=== PATIENT | female | born 1985 | race Caucasian/White ===

== ENCOUNTER → 2016-10-16 | Outpatient (CLI) | payer OTHER ==
[2016-10-16 10:40] LABS: Bilirubin, Delta 0.3 mg/dL (0.0-0.2); Total Bilirubin 0.4 mg/dL (0.2-1.3); Total Protein 8.1 g/dL (6.3-8.2)
[2016-10-16 12:38] LABS: Hemoglobin A1C 5.7 % (4.2-6.1)
== END | disposition home or self-care (01) ==
LOC: LABWHC1 08:11
PROVIDERS: ATTEND Psychiatry & Neurology Psychiatry
DX: Z51.81 Encounter for therapeutic drug level monitoring (principal); Z79.899 Other long term (current) drug therapy
CPT/HCPCS: 36415; 80061; 80076; 80164; 82947; 83036; 84439; 84443

== ENCOUNTER 2016-11-22 17:47 | Emergency (ER) | payer OTHER ==
[2016-11-22] MEDS ORDERED: ACTIVATED CHARCOAL 50 GM/240 ML BOTTLE PO STA (18:52)
--- NOTE | 2016-11-22 18:59 | ED ---
General Adult HPI - General Source: patient, EMS, RN notes reviewed, old records reviewed Mode of arrival: EMS Limitations: no limitations <Cas Allison - Last Filed: 11/22/16 21:54> <Jacobo Cardozo - Last Filed: 11/23/16 05:33> - General Chief complaint: Overdose Stated complaint: Sucidial Time Seen by Provider: 11/22/16 18:18 - History of Present Illness Initial comments: Chief complaint and history of present illness a 30-year-old female comes emergency room because of depression. She states she took approximately 2800 mg tablets of ibuprofen because she wasn't happy with herself or her life. She does admit she did order to hurt herself. She reports that she's history of alcoholism and bipolar disorder. Currently being seen by psychiatrist. (Cas Allison) - Related Data Home Medications Medication Instructions Recorded Confirmed Amoxicillin 875 mg PO Q12H 11/22/16 11/22/16 Mirtazapine [Remeron] 15 - 30 mg PO HS 11/22/16 11/22/16 Allergies Allergy/AdvReac Type Severity Reaction Status Date / Time No Known Allergies Allergy Verified 11/22/16 19:25 Review of Systems ROS Other: All systems not noted in ROS Statement are negative. <Cas Allison - Last Filed: 11/22/16 21:54> ROS Other: All systems not noted in ROS Statement are negative. <Jacobo Cardozo - Last Filed: 11/23/16 05:33> ROS Statement: Those systems with pertinent positive or pertinent negative responses have been documented in the HPI. Review of systems not complaining of any headache or visual acuity changes no chest pain shows breath GI/ problems. Patient reports that she is depressed and the overdose of ibuprofen to harm herself. The medications were available to her because she had a tooth pulled last month. All systems are reviewed. Past medical problems significant for bipolar disorder, skin cancer, alcoholism and insomnia. She reports she overdosed on heroin once January of last year on purpose. Surgeries uterine ablation, rhinoplasty. Denies any chest pain . Family history no alcohol except family did not admitted according to the patient. Denies ALLERGIES denies smoking states she drinks beer and whiskey. She started drinking when she was 12 years old she been through rehab 4 times last time last summer. (Cas Allison) Past Medical History Past Medical History: Cancer Additional Past Medical History / Comment(s): alcoholism, insomnia, past cervical cancer History of Any Multi-Drug Resistant Organisms: None Reported Past Surgical History: Uterine Ablation Additional Past Surgical History / Comment(s): rhinoplasty, cervical cancer currently and skin cancer lymph node removed in the 6th grade Past Anesthesia/Blood Transfusion Reactions: No Reported Reaction Past Psychological History: Anxiety, Depression Additional Psychological History / Comment(s): PT STATED CURRENTLY HAS NO THOUGHTS OF HARMING SELF BUT IN PAST 2 WEEKS HAD SOME THOUGHTS. DENIES FEELING HOPELESS. Smoking Status: Never smoker Past Alcohol Use History: Occasional Additional Past Alcohol Use History / Comment(s): went to [place] for alcohol has been sober for 50 days Past Drug Use History: None Reported Additional Drug Use History / Comment(s): Patient states that she tried herion for the first time on 01/08/16, unsure of amount and went unresponsive where she required CPR to bring her back to life per Patient. - Past Family History Father Additional Family Medical History / Comment(s): Father is age 57. Alcoholism, diverticulosis Mother Additional Family Medical History / Comment(s): Mother is alive at age 65 with no major medical problems. Brother(s) Additional Family Medical History / Comment(s): Patient has 2 brothers with no major medical problems. She does not have any sisters. She does not have any children. <Cas Allison - Last Filed: 11/22/16 21:54> General Exam Limitations: no limitations <Cas Allison - Last Filed: 11/22/16 21:54> <Jacobo Cardozo - Last Filed: 11/23/16 05:33> - General Exam Comments Initial Comments: General: The patient is awake and alert, appears slightly fatigued or tired. She answers questions quickly and appropriately. States she did purposely take approximately 20 , 800 mg tablets of ibuprofen. Vital signs show temperature 98.2 pulse 108 respiratory rate 18 pulse ox 98% room air blood pressure 111/63. Eye: Pupils are equal, round and reactive to light, extra-ocular movements are intact ; there is normal conjunctiva bilaterally. No signs of icterus. Ears, nose, mouth and throat: There are moist mucous membranes and no oral lesions. Neck: The neck is supple, there is no tenderness or JVD. Cardiovascular: There is a regular rate and rhythm. No murmur, rub or gallop is appreciated. Respiratory: Lungs are clear to auscultation, respirations are non-labored, breath sounds are equal. No wheezes, stridor, rales, or rhonchi. Gastrointestinal: Soft, non-distended, non-tender abdomen without masses or organomegaly noted. There is no rebound or guarding present. No CVA tenderness. Bowel sounds are unremarkable. Back: There is no tenderness to palpation in the midline. There is no obvious deformity. No rashes noted. Musculoskeletal: Normal ROM, no tenderness, There is no pedal edema. There is no calf tenderness or swelling. Sensation intact. Pulses equal bilaterally 2+. Neurological: CN II-XII intact, There are no obvious motor or sensory deficits. Coordination appears grossly intact. Speech is normal. Skin: Skin is warm and dry and no rashes or lesions are noted. Psychiatric: Cooperative, appears fatigued, depressed, suicidal. (Cas Allison) Course <Cas Allison - Last Filed: 11/22/16 21:54> <Jacobo Cardozo - Last Filed: 11/23/16 05:33> Vital Signs 11/22/16 11/22/16 17:48 19:33 Temperature 98.2 F 98.3 F Pulse Rate 108 H 118 H Respiratory 18 18 Rate Blood Pressure 111/63 104/61 O2 Sat by Pulse 98 97 Oximetry - Reevaluation(s) Reevaluation #1: 11/23/16 05:31 The patient was determined to be sober. She was evaluated by psychiatric department. He is not suicidal or homicidal. She will be discharged with family. (Jacobo Cardozo) EKG Findings - EKG Comments: EKG Findings:: EKG was done reviewed and 1917 hrs. showing sinus tachycardia rate 110. No acute service no ectopy no ischemic changes. MD interval 118 QRS 66 QTc [address] QTc 4:30. Dr[address] Allison <Cas Allison - Last Filed: 11/22/16 21:54> Medical Decision Making - Lab Data Result diagrams: 11/22/16 19:10 11/22/16 19:10 <Cas Allison - Last Filed: 11/22/16 21:54> - Lab Data Result diagrams: 11/22/16 19:10 11/22/16 19:10 <Jacobo Cardozo - Last Filed: 11/23/16 05:33> - Medical Decision Making Poison control was called. Patient's history was reviewed with them. At this time the patient's labs show white count 7.9 hemoglobin 12 medical 37, S and 4.4 BUN 17 creatinine 0.77 and GFR greater than 60. Urine test negative. Urine clean no signs of infection no signs of any illegal drugs. EtOH is 0.272. Patient's Tylenol and aspirin levels are negative. Mother is here at bedside. Patient will be talking to the psych nurse when her alcohol level comes below 0.08. (Cas Allison) - Lab Data Lab Results 11/22/16 11/22/16 11/22/16 Range/Units 17:51 17:51 19:10 WBC (3.8-10.6) k/uL RBC (3.80-5.40) m/uL Hgb (11.4-16.0) gm/dL Hct (34.0-46.0) % MCV (80.0-100.0) fL MCH (25.0-35.0) pg MCHC (31.0-37.0) g/dL RDW (11.5-15.5) % Plt Count (150-450) k/uL Neutrophils % % Lymphocytes % % Monocytes % % Eosinophils % % Basophils % % Neutrophils # (1.3-7.7) k/uL Lymphocytes # (1.0-4.8) k/uL Monocytes # (0-1.0) k/uL Eosinophils # (0-0.7) k/uL Basophils # (0-0.2) k/uL Anisocytosis Sodium 147 H (137-145) mmol/L Potassium 4.4 (3.5-5.1) mmol/L Chloride 111 H (98-107) mmol/L Carbon Dioxide 19 L (22-30) mmol/L Anion Gap 17 mmol/L BUN 7 (7-17) mg/dL Creatinine 0.77 (0.52-1.04) mg/dL Est GFR (MDRD) Af Amer >60 (>60 ml/min/1.73 sqM) Est GFR (MDRD) Non-Af >60 (>60 ml/min/1.73 sqM) Glucose 89 (74-99) mg/dL Calcium 8.9 (8.4-10.2) mg/dL Total Bilirubin 0.3 (0.2-1.3) mg/dL AST 22 (14-36) U/L ALT 26 (9-52) U/L Alkaline Phosphatase 58 (38-126) U/L Total Protein 7.8 (6.3-8.2) g/dL Albumin 3.7 (3.5-5.0) g/dL Urine HCG, Qual Not Detected (Not Detectd) Salicylates <1.0 mg/dL Urine Opiates Screen Not Detected (NotDetected) Ur Oxycodone Screen Not Detected (NotDetected) Urine Methadone Screen Not Detected (NotDetected) Ur Propoxyphene Screen Not Detected (NotDetected) Acetaminophen <10.0 ug/mL Ur Barbiturates Screen Not Detected (NotDetected) U Tricyclic Antidepress Not Detected (NotDetected) Ur Phencyclidine Scrn Not Detected (NotDetected) Ur Amphetamines Screen Not Detected (NotDetected) U Methamphetamines Scrn Not Detected (NotDetected) U Benzodiazepines Scrn Not Detected (NotDetected) Urine Cocaine Screen Not Detected (NotDetected) U Marijuana (THC) Screen Not Detected (NotDetected) Serum Alcohol 272 mg/dL 11/22/16 Range/Units 19:10 WBC 7.9 (3.8-10.6) k/uL RBC 4.25 (3.80-5.40) m/uL Hgb 12.3 (11.4-16.0) gm/dL Hct 37.5 (34.0-46.0) % MCV 88.3 (80.0-100.0) fL MCH 28.8 (25.0-35.0) pg MCHC 32.7 (31.0-37.0) g/dL RDW 16.5 H (11.5-15.5) % Plt Count 385 (150-450) k/uL Neutrophils % 39 % Lymphocytes % 50 % Monocytes % 4 % Eosinophils % 3 % Basophils % 1 % Neutrophils # 3.1 (1.3-7.7) k/uL Lymphocytes # 3.9 (1.0-4.8) k/uL Monocytes # 0.3 (0-1.0) k/uL Eosinophils # 0.3 (0-0.7) k/uL Basophils # 0.1 (0-0.2) k/uL Anisocytosis Slight Sodium (137-145) mmol/L Potassium (3.5-5.1) mmol/L Chloride (98-107) mmol/L Carbon Dioxide (22-30) mmol/L Anion Gap mmol/L BUN (7-17) mg/dL Creatinine (0.52-1.04) mg/dL Est GFR (MDRD) Af Amer (>60 ml/min/1.73 sqM) Est GFR (MDRD) Non-Af (>60 ml/min/1.73 sqM) Glucose (74-99) mg/dL Calcium (8.4-10.2) mg/dL Total Bilirubin (0.2-1.3) mg/dL AST (14-36) U/L ALT (9-52) U/L Alkaline Phosphatase (38-126) U/L Total Protein (6.3-8.2) g/dL Albumin (3.5-5.0) g/dL Urine HCG, Qual (Not Detectd) Salicylates mg/dL Urine Opiates Screen (NotDetected) Ur Oxycodone Screen (NotDetected) Urine Methadone Screen (NotDetected) Ur Propoxyphene Screen (NotDetected) Acetaminophen ug/mL Ur Barbiturates Screen (NotDetected) U Tricyclic Antidepress (NotDetected) Ur Phencyclidine Scrn (NotDetected) Ur Amphetamines Screen (NotDetected) U Methamphetamines Scrn (NotDetected) U Benzodiazepines Scrn (NotDetected) Urine Cocaine Screen (NotDetected) U Marijuana (THC) Screen (NotDetected) Serum Alcohol mg/dL Disposition <Cas Allison - Last Filed: 11/22/16 21:54> <Jacobo Cardozo - Last Filed: 11/23/16 05:33> Clinical Impression: Adjustment disorder, Alcoholic intoxication Disposition: HOME SELF-CARE Condition: Good Instructions: Mood Disorders (ED), Stress (ED), Alcohol Intoxication (ED)
[2016-11-22 19:22] LABS: Anisocytosis Slight; Basophils # (A) 0.1 k/uL (0-0.2); Basophils % (A) 1 %; CHCM 33.1; Eosinophils # (A) 0.3 k/uL (0-0.7); Eosinophils % (A) 3 %; HCT 37.5 % (34.0-46.0); HDW 2.33; HGB 12.3 gm/dL (11.4-16.0); Luc % (Auto) 4; Lymphocytes # (A) 3.9 k/uL (1.0-4.8); Lymphocytes % (A) 50 %; MCH 28.8 pg (25.0-35.0); MCHC 32.7 g/dL (31.0-37.0); MCV 88.3 fL (80.0-100.0); Mean Platelet Volume 6.7; Monocytes # (A) 0.3 k/uL (0-1.0); Monocytes % (A) 4 %; Neutrophils # (A) 3.1 k/uL (1.3-7.7); Neutrophils % (A) 39 %; RBC 4.25 m/uL (3.80-5.40); RDW 16.5 % (11.5-15.5); WBC 7.9 k/uL (3.8-10.6); WBC (Perox) 7.73
[2016-11-22 19:34] VITALS: TEMP 98.3
[2016-11-22 19:34] LABS: ALT 26 U/L (9-52); AST 22 U/L (14-36); Acetaminophen <10.0 ug/mL; Alkaline Phosphatase 58 U/L (38-126); Anion Gap 17 mmol/L; Blood Urea Nitrogen 7 mg/dL (7-17); Calcium 8.9 mg/dL (8.4-10.2); Carbon Dioxide 19 mmol/L (22-30); Chloride 111 mmol/L (98-107); Glucose 89 mg/dL (74-99); Non-African American GFR(MDRD) >60 (>60 ml/min/1.73 sqM); Potassium 4.4 mmol/L (3.5-5.1); Salicylate <1.0 mg/dL; Sodium 147 mmol/L (137-145); Total Bilirubin 0.3 mg/dL (0.2-1.3); Total Protein 7.8 g/dL (6.3-8.2)
[2016-11-22 19:36] LABS: Alcohol 272 mg/dL
[2016-11-22] MEDS ORDERED: SODIUM CHLORIDE 0.9% 500 ML IV STA (22:08)
[2016-11-22] MEDS ORDERED: ONDANSETRON 4 MG/2 ML VIAL IVP STA (23:06)
[2016-11-23] MEDS ORDERED: METOCLOPRAMIDE 5 MG/ML 2 ML VIAL IVP STA (00:37)
[2016-11-23] MEDS ORDERED: ONDANSETRON ODT 4 MG TAB PO STA (04:20)
[2016-11-23 06:36] VITALS: BP 117/62; PULSE 70; RESP 14
== END 2016-11-23 06:35 | disposition home or self-care (01) ==
LOC: EC 17:47
DX: F43.20 Adjustment disorder, unspecified (principal); F10.129 Alcohol abuse with intoxication, unspecified; G47.00 Insomnia, unspecified; F32.9 Major depressive disorder, single episode, unspecified; Z79.899 Other long term (current) drug therapy
CPT/HCPCS: 99284; 96374; 96375; 82075 ×2; 36415; 93005; 80053; 85025; 81025; 80306; 83520 ×2; 80320; J2765; J2405

== ENCOUNTER 2017-03-11 17:31 | Emergency (ER) | payer OTHER ==
[2017-03-11 17:53] VITALS: RESP 20; TEMP 98.1
[2017-03-11] MEDS ORDERED: SODIUM CHLORIDE 0.9% 1,000 ML IV STA (19:13)
--- NOTE | 2017-03-11 19:13 | ED ---
General Adult HPI - General Chief complaint: Dizziness Stated complaint: body twitching Time Seen by Provider: 03/11/17 19:02 Source: patient, RN notes reviewed Mode of arrival: ambulatory Limitations: no limitations - History of Present Illness Initial comments: 31 yo female presents to the ER with cc of lightheadedness. Patient states that she got up and went black and then she felt lightheaded. He states she grabbed along collected herself. Patient states during that she felt very shaky. Patient states that now she feels back to normal. Patient states she's had a few episodes of this on and off for the past 2 days. Patient denies any actual falls traumas or injuries. Patient states she was concerned due to the symptoms so she thought that she should be seen.Patient denies any recent fever , chills, shortness of breath, chest pain, back pain, abdominal pain, nausea vomiting, numbness or tingling, dysuria or hematuria, constipation or diarrhea, headaches or visual changes, or any other current symptoms. - Related Data Home Medications Medication Instructions Recorded Confirmed ARIPiprazole [Abilify] 10 mg PO HS 03/11/17 03/11/17 Antabuse Unknown Strength 1 tab PO DAILY 03/11/17 03/11/17 DULoxetine HCL [Cymbalta] 40 mg PO DAILY 03/11/17 03/11/17 traZODone HCL 50 mg PO HS 03/11/17 03/11/17 Allergies Allergy/AdvReac Type Severity Reaction Status Date / Time No Known Allergies Allergy Verified 03/11/17 19:20 Review of Systems ROS Statement: Those systems with pertinent positive or pertinent negative responses have been documented in the HPI. ROS Other: All systems not noted in ROS Statement are negative. Past Medical History Past Medical History: Cancer Additional Past Medical History / Comment(s): alcoholism, insomnia, past cervical cancer History of Any Multi-Drug Resistant Organisms: None Reported Past Surgical History: Uterine Ablation Additional Past Surgical History / Comment(s): rhinoplasty, cervical cancer currently and skin cancer lymph node removed in the 6th grade Past Anesthesia/Blood Transfusion Reactions: No Reported Reaction Past Psychological History: Anxiety, Depression Additional Psychological History / Comment(s): PT STATED CURRENTLY HAS NO THOUGHTS OF HARMING SELF BUT IN PAST 2 WEEKS HAD SOME THOUGHTS. DENIES FEELING HOPELESS. Smoking Status: Never smoker Past Alcohol Use History: Occasional Additional Past Alcohol Use History / Comment(s): went to [place] for alcohol has been sober for 50 days Past Drug Use History: None Reported Additional Drug Use History / Comment(s): Patient states that she tried herion for the first time on 01/08/16, unsure of amount and went unresponsive where she required CPR to bring her back to life per Patient. - Past Family History Father Additional Family Medical History / Comment(s): Father is age 57. Alcoholism, diverticulosis Mother Additional Family Medical History / Comment(s): Mother is alive at age 65 with no major medical problems. Brother(s) Additional Family Medical History / Comment(s): Patient has 2 brothers with no major medical problems. She does not have any sisters. She does not have any children. General Exam Limitations: no limitations General appearance: alert, in no apparent distress Head exam: Present: atraumatic, normocephalic, normal inspection Neck exam: Present: normal inspection. Absent: tenderness, meningismus, lymphadenopathy Respiratory exam: Present: normal lung sounds bilaterally Cardiovascular Exam: Present: regular rate, normal rhythm, normal heart sounds. Absent: systolic murmur, diastolic murmur, rubs, gallop, clicks Back exam: Present: normal inspection Neurological exam: Present: alert, oriented X3, motor sensory deficit, reflexes normal. Absent: CN II-XII intact Psychiatric exam: Present: normal affect, normal mood Skin exam: Present: warm, dry, intact, normal color. Absent: rash Course Vital Signs 03/11/17 03/11/17 17:50 20:07 Temperature 98.1 F Pulse Rate 102 H Pulse Rate [ 86 Sitting] Pulse Rate [ 105 H Standing] Pulse Rate [ 77 Supine Roll Off Driver] Respiratory 20 Rate Blood Pressure 111/79 Blood Pressure 115/75 [Right Arm Sitting] Blood Pressure 113/69 [Right Arm Supine] Blood Pressure 116/82 [Standing] O2 Sat by Pulse 99 Oximetry Medical Decision Making - Medical Decision Making 31-year-old female presents emergency Department chief complaint of lightheadedness. At this time patient's x-rays and lab work has been reviewed. At this time we discussed patient's symptoms, lightheadedness. We discussed increasing fluids in the diet we discussed return parameters all patient's questions. She states she understood. We discussed follow-up. The patient this time will be discharged. - Lab Data Result diagrams: 03/11/17 19:25 03/11/17 19:25 Lab Results 03/11/17 03/11/17 03/11/17 Range/Units 19:25 19:25 19:25 WBC 10.4 (3.8-10.6) k/uL RBC 4.93 (3.80-5.40) m/uL Hgb 14.4 (11.4-16.0) gm/dL Hct 42.0 (34.0-46.0) % MCV 85.3 (80.0-100.0) fL MCH 29.3 (25.0-35.0) pg MCHC 34.4 (31.0-37.0) g/dL RDW 13.8 (11.5-15.5) % Plt Count 319 (150-450) k/uL Neutrophils % 65 % Lymphocytes % 28 % Monocytes % 4 % Eosinophils % 1 % Basophils % 1 % Neutrophils # 6.7 (1.3-7.7) k/uL Lymphocytes # 2.9 (1.0-4.8) k/uL Monocytes # 0.4 (0-1.0) k/uL Eosinophils # 0.1 (0-0.7) k/uL Basophils # 0.1 (0-0.2) k/uL Sodium 141 (137-145) mmol/L Potassium 4.0 (3.5-5.1) mmol/L Chloride 104 (98-107) mmol/L Carbon Dioxide 24 (22-30) mmol/L Anion Gap 13 mmol/L BUN 8 (7-17) mg/dL Creatinine 0.80 (0.52-1.04) mg/dL Est GFR (MDRD) Af Amer >60 (>60 ml/min/1.73 sqM) Est GFR (MDRD) Non-Af >60 (>60 ml/min/1.73 sqM) Glucose 95 (74-99) mg/dL Calcium 9.2 (8.4-10.2) mg/dL Total Bilirubin 0.4 (0.2-1.3) mg/dL AST 18 (14-36) U/L ALT 18 (9-52) U/L Alkaline Phosphatase 53 (38-126) U/L Total Protein 8.1 (6.3-8.2) g/dL Albumin 4.6 (3.5-5.0) g/dL Urine Color Urine Appearance (Clear) Urine pH (5.0-8.0) Ur Specific [place] (1.001-1.035) Urine Protein (Negative) Urine Glucose (UA) (Negative) Urine Ketones (Negative) Urine Blood (Negative) Urine Nitrite (Negative) Urine Bilirubin (Negative) Urine Urobilinogen (<2.0) mg/dL Ur Leukocyte Esterase (Negative) Urine RBC (0-5) /hpf Urine WBC (0-5) /hpf Ur Squamous Epith Cells (0-4) /hpf Urine Bacteria (None) /hpf Urine Mucus (None) /hpf Urine HCG, Qual Not Detected (Not Detectd) 03/11/17 Range/Units 19:25 WBC (3.8-10.6) k/uL RBC (3.80-5.40) m/uL Hgb (11.4-16.0) gm/dL Hct (34.0-46.0) % MCV (80.0-100.0) fL MCH (25.0-35.0) pg MCHC (31.0-37.0) g/dL RDW (11.5-15.5) % Plt Count (150-450) k/uL Neutrophils % % Lymphocytes % % Monocytes % % Eosinophils % % Basophils % % Neutrophils # (1.3-7.7) k/uL Lymphocytes # (1.0-4.8) k/uL Monocytes # (0-1.0) k/uL Eosinophils # (0-0.7) k/uL Basophils # (0-0.2) k/uL Sodium (137-145) mmol/L Potassium (3.5-5.1) mmol/L Chloride (98-107) mmol/L Carbon Dioxide (22-30) mmol/L Anion Gap mmol/L BUN (7-17) mg/dL Creatinine (0.52-1.04) mg/dL Est GFR (MDRD) Af Amer (>60 ml/min/1.73 sqM) Est GFR (MDRD) Non-Af (>60 ml/min/1.73 sqM) Glucose (74-99) mg/dL Calcium (8.4-10.2) mg/dL Total Bilirubin (0.2-1.3) mg/dL AST (14-36) U/L ALT (9-52) U/L Alkaline Phosphatase (38-126) U/L Total Protein (6.3-8.2) g/dL Albumin (3.5-5.0) g/dL Urine Color Yellow Urine Appearance Cloudy H (Clear) Urine pH 6.5 (5.0-8.0) Ur Specific [place] 1.016 (1.001-1.035) Urine Protein Negative (Negative) Urine Glucose (UA) Negative (Negative) Urine Ketones Negative (Negative) Urine Blood Negative (Negative) Urine Nitrite Negative (Negative) Urine Bilirubin Negative (Negative) Urine Urobilinogen 2.0 (<2.0) mg/dL Ur Leukocyte Esterase Negative (Negative) Urine RBC <1 (0-5) /hpf Urine WBC 1 (0-5) /hpf Ur Squamous Epith Cells 4 (0-4) /hpf Urine Bacteria Rare H (None) /hpf Urine Mucus Rare H (None) /hpf Urine HCG, Qual (Not Detectd) - EKG Data -: EKG Interpreted by Me 03/11/17 19:57 normal sinus rhythm 82 bpm, normal axis, no atopy, no S-T depressions or elevations, - Radiology Data Radiology results: report reviewed, image reviewed Disposition Clinical Impression: Lightheadedness Disposition: HOME SELF-CARE Condition: Stable Instructions: Lightheadedness (ED) Additional Instructions: Please use medication as discussed. Please follow up with family doctor if symptoms have not improved over the next two days. Please return to the emergency room if your symptoms increase or worsen or for any other concerns. Referrals: Rahat Fletcher DO [Primary Care Provider] - 1-2 days Time of Disposition: 20:18
[2017-03-11 19:48] LABS: Basophils # (A) 0.1 k/uL (0-0.2); Basophils % (A) 1 %; CH 28.8; CHCM 33.9; Eosinophils # (A) 0.1 k/uL (0-0.7); Eosinophils % (A) 1 %; HDW 2.26; HGB 14.4 gm/dL (11.4-16.0); Luc # (Auto) 0.14; Luc % (Auto) 1; Lymphocytes # (A) 2.9 k/uL (1.0-4.8); Lymphocytes % (A) 28 %; MCH 29.3 pg (25.0-35.0); MCHC 34.4 g/dL (31.0-37.0); MCV 85.3 fL (80.0-100.0); Mean Platelet Volume 7.1; Monocytes # (A) 0.4 k/uL (0-1.0); Monocytes % (A) 4 %; Neutrophils # (A) 6.7 k/uL (1.3-7.7); Neutrophils % (A) 65 %; RBC 4.93 m/uL (3.80-5.40); RDW 13.8 % (11.5-15.5); WBC 10.4 k/uL (3.8-10.6); WBC (Perox) 10.64
[2017-03-11 19:57] LABS: Appearance,Urine Cloudy (Clear); Bacteria,Urine Rare /hpf; Bilirubin,Urine Negative (Negative); Glucose,Urine (UA) Negative (Negative); Ketones,Urine Negative (Negative); Leukocyte Esterase,Urine Negative (Negative); Mucus,Urine Rare /hpf; Nitrite,Urine Negative (Negative); PH, Urine 6.5 (5.0-8.0); Particle Count 4166; Protein,Urine Negative (Negative); RBC,Urine <1 /hpf (0-5); Specific Gravity,Urine 1.016 (1.001-1.035); Squamous Epithelial Cell,Urine 4 /hpf (0-4); UA Billing (MACRO vs. MICRO) MICRO; WBC,Urine 1 /hpf (0-5)
[2017-03-11 20:02] LABS: ALT 18 U/L (9-52); AST 18 U/L (14-36); Alkaline Phosphatase 53 U/L (38-126); Anion Gap 13 mmol/L; Blood Urea Nitrogen 8 mg/dL (7-17); Calcium 9.2 mg/dL (8.4-10.2); Carbon Dioxide 24 mmol/L (22-30); Chloride 104 mmol/L (98-107); Glucose 95 mg/dL (74-99); Non-African American GFR(MDRD) >60 (>60 ml/min/1.73 sqM); Sodium 141 mmol/L (137-145); Total Bilirubin 0.4 mg/dL (0.2-1.3); Total Protein 8.1 g/dL (6.3-8.2)
--- NOTE | 2017-03-11 20:06 | XR ---
EXAMINATION TYPE: XR chest 2V DATE OF EXAM: 03/11/2017 7:59 PM COMPARISON: 05/26/2014 HISTORY: Cough TECHNIQUE: Frontal and lateral views of the chest are obtained. FINDINGS: Heart and mediastinum are normal. Lungs are clear. Diaphragm is normal. Bony thorax and so ft tissues appear normal. IMPRESSION: Normal chest. There is clearing of a minimal pneumonia in the right upper lobe compared to old exam.
[2017-03-11 20:13] VITALS: BP 113/69; PULSE 77
== END 2017-03-11 20:57 | disposition home or self-care (01) ==
LOC: EC 17:31
DX: R42 Dizziness and giddiness (principal); F32.9 Major depressive disorder, single episode, unspecified; F41.9 Anxiety disorder, unspecified; F10.21 Alcohol dependence, in remission; Z79.899 Other long term (current) drug therapy
CPT/HCPCS: 36415; 71020; 80053; 81001; 81025; 85025; 93005; 96360; 99284

== ENCOUNTER → 2017-04-23 | Outpatient (CLI) | payer OTHER ==
--- NOTE | 2017-04-26 12:01 | HM ---
The patient was monitored for 24 hours. Baseline rhythm is sinus mechanism. Normal conduction. The average rate is 78 beats per minute. Minimum of 58. Maximum 159 beats per minute. Ventricular ectopic activity was not present. Supraventricular ectopic activity was not present. Symptoms of dizziness and feeling heavy did not correlate with any dysrhythmia. CONCLUSION: 1. Sinus mechanism, baseline rhythm. 2. No ventricular ectopic activity. 3. No supraventricular ectopic activity. 4. Symptoms did not correlate with any dysrhythmia. [facility]
== END ==
LOC: RADECHMAIN 11:52
PROVIDERS: ATTEND Family Medicine
DX: R42 Dizziness and giddiness (principal)
CPT/HCPCS: 93225; 93226

== ENCOUNTER → 2017-05-31 | Outpatient (CLI) | payer OTHER ==
--- NOTE | 2017-05-31 10:19 | MR ---
EXAMINATION TYPE: MR brain wo/w con DATE OF EXAM: 05/31/2017 COMPARISON: NONE HISTORY: Headache, Dizziness CONTRAST: Performed utilizing 10 mL intravenous MultiHance gadolinium contrast. TECHNIQUE: Multiplanar, multiecho imaging on a 3.0 [place] magnet is performed through the brain. Stud y is performed within 24 hours of arrival to the hospital. The craniovertebral junction is normal. The pituitary is normal. Diffusion-weighted imaging is performed. No abnormal hyperintensity is present to suggest an acute i ntracranial infarct or acute ischemic change. There are scattered punctate areas of hyperintensity on T2 and Inversion Recovery weighted sequences which are non-specific but can be related to microvascular ischemic changes. Ventricles and sulci are appropriate for the patient age. There is mucosal thickening within the right maxillary sinus. Some retention cyst or fluid may be at the inferior left maxillary sinus. Some mucosal thickening is within the inferior left frontal sinus. Mastoid air cells appear clear No abnormal enhancement is evident. IMPRESSIONS: 1. Normal pre and postcontrast MRI brain
== END | disposition home or self-care (01) ==
LOC: RADMRIMAIN 08:58
PROVIDERS: ATTEND Family Medicine
DX: R51 Headache (principal)
CPT/HCPCS: 70553; A9577

== ENCOUNTER 2019-04-23 21:52 | Emergency (ER) | payer OTHER ==
[2019-04-23 21:57] VITALS: RESP 16; TEMP 97.6
--- NOTE | 2019-04-23 22:28 | ED ---
General Adult HPI - General Source: patient, RN notes reviewed Mode of arrival: ambulatory <Bubba Castro - Last Filed: 04/24/19 14:37> <Rui Conn - Last Filed: 04/27/19 12:31> - General Chief complaint: Psychiatric Symptoms Stated complaint: Mental Health Time Seen by Provider: 04/23/19 21:59 - History of Present Illness Initial comments: 33-year-old female with a past medical history of alcoholism, insomnia, bipolar disorder presents to the emergency department for suicidal thoughts 12 hours. Patient states that she hasn't been feeling well and that she has been having bad thoughts. States that she has been sober from alcohol for 2 years after receiving her bipolar disorder diagnosis. States that the past 2 weeks she began drinking alcohol again. States that she drank a sixpack and a pint of liquor today. States that she is currently dating someone and she has not done that for the past 2 years and she believes this may be causing her to feel unbalanced. States that now she is having suicidal thoughts. States she wants to shoot herself in the head with a shotgun. States she doesnt know how to use a shotgun. Denies any thoughts of harming anyone else. Patient has no other complaints at this time including shortness of breath, chest pain, abdominal pain, nausea or vomiting, headache, or visual changes. (Bubba Castro) - Related Data Home Medications Medication Instructions Recorded Confirmed traZODone HCL 50 mg PO HS 03/11/17 04/23/19 DULoxetine HCL [Cymbalta] 60 mg PO HS 04/23/19 04/23/19 Lurasidone [Latuda] 20 mg PO HS 04/23/19 04/23/19 QUEtiapine [SEROquel] 100 mg PO HS 04/23/19 04/23/19 Allergies Allergy/AdvReac Type Severity Reaction Status Date / Time No Known Allergies Allergy Verified 04/23/19 22:36 Review of Systems ROS Other: All systems not noted in ROS Statement are negative. <Bubba Castro - Last Filed: 04/24/19 14:37> ROS Other: All systems not noted in ROS Statement are negative. <Rui Conn - Last Filed: 04/27/19 12:31> ROS Statement: Those systems with pertinent positive or pertinent negative responses have been documented in the HPI. Past Medical History Past Medical History: Cancer Additional Past Medical History / Comment(s): alcoholism, insomnia, past cervical cancer History of Any Multi-Drug Resistant Organisms: None Reported Past Surgical History: Uterine Ablation Additional Past Surgical History / Comment(s): rhinoplasty, cervical cancer currently and skin cancer lymph node removed in the 6th grade Past Anesthesia/Blood Transfusion Reactions: No Reported Reaction Past Psychological History: Anxiety, Depression Smoking Status: Never smoker Past Alcohol Use History: Occasional Past Drug Use History: None Reported - Past Family History Father Additional Family Medical History / Comment(s): Father is age 57. Alcoholism, diverticulosis Mother Additional Family Medical History / Comment(s): Mother is alive at age 65 with no major medical problems. Brother(s) Additional Family Medical History / Comment(s): Patient has 2 brothers with no major medical problems. She does not have any sisters. She does not have any children. <Bubba Castro P - Last Filed: 04/24/19 14:37> General Exam General appearance: alert, in no apparent distress Head exam: Present: atraumatic, normocephalic, normal inspection Eye exam: Present: normal appearance, PERRL, EOMI. Absent: scleral icterus, conjunctival injection, periorbital swelling ENT exam: Present: normal exam, mucous membranes moist Neck exam: Present: normal inspection, full ROM. Absent: tenderness, meningismus, lymphadenopathy Respiratory exam: Present: normal lung sounds bilaterally. Absent: respiratory distress, wheezes, rales, rhonchi, stridor Cardiovascular Exam: Present: regular rate, normal rhythm, normal heart sounds. Absent: systolic murmur, diastolic murmur, rubs, gallop, clicks GI/Abdominal exam: Present: soft, normal bowel sounds. Absent: distended, tenderness, guarding, rebound, rigid Neurological exam: Present: alert, oriented X3, CN II-XII intact Psychiatric exam: Present: suicidal ideation. Absent: homicidal ideation <Bubba Castro P - Last Filed: 04/24/19 14:37> Course Vital Signs 04/23/19 04/23/19 04/24/19 21:54 23:00 01:00 Temperature 97.6 F Pulse Rate 134 H 98 Respiratory 16 16 Rate Blood Pressure 124/86 98/54 120/87 O2 Sat by Pulse 95 100 Oximetry 04/24/19 06:52 Temperature Pulse Rate 89 Respiratory 16 Rate Blood Pressure 101/79 O2 Sat by Pulse 100 Oximetry Medical Decision Making <Bubba Castro - Last Filed: 04/24/19 14:37> <Rui Conn - Last Filed: 04/27/19 12:31> - Medical Decision Making Care signed out to Dr Conn at 0000, pending EPS eval at 0430 when patient is sober (Bubba Castro) I saw this patient in conjunction with the physician senior sales assistant. I performed independent history and physical exam. Agree with case management. (Rui Conn) - Lab Data Lab Results 04/23/19 Range/Units 22:05 Urine Color Colorless Urine Appearance Clear (Clear) Urine pH 5.5 (5.0-8.0) Ur Specific [place] 1.005 (1.001-1.035) Urine Protein Negative (Negative) Urine Glucose (UA) Negative (Negative) Urine Ketones Negative (Negative) Urine Blood Negative (Negative) Urine Nitrite Negative (Negative) Urine Bilirubin Negative (Negative) Urine Urobilinogen <2.0 (<2.0) mg/dL Ur Leukocyte Esterase Negative (Negative) Urine Opiates Screen Not Detected (NotDetected) Ur Oxycodone Screen Not Detected (NotDetected) Urine Methadone Screen Not Detected (NotDetected) Ur Propoxyphene Screen Not Detected (NotDetected) Ur Barbiturates Screen Not Detected (NotDetected) U Tricyclic Antidepress Not Detected (NotDetected) Ur Phencyclidine Scrn Not Detected (NotDetected) Ur Amphetamines Screen Not Detected (NotDetected) U Methamphetamines Scrn Not Detected (NotDetected) U Benzodiazepines Scrn Not Detected (NotDetected) Urine Cocaine Screen Not Detected (NotDetected) U Marijuana (THC) Screen Not Detected (NotDetected) Disposition <Bubba Castro - Last Filed: 04/24/19 14:37> Is patient prescribed a controlled substance at d/c from ED?: No <Rui Conn - Last Filed: 04/27/19 12:31> Clinical Impression: Alcoholic intoxication, Mood disorder Disposition: HOME SELF-CARE Condition: Fair Instructions (If sedation given, give patient instructions): Mood Disorders (ED) Referrals: Rahat Fletcher DO [Primary Care Provider] - 1-2 days
[2019-04-23 22:37] LABS: Amphetamine Screen,Urine Not Detected (NotDetected); Barbiturate Screen,Urine Not Detected (NotDetected); Benzodiazepines Screen,Urine Not Detected (NotDetected); Cocaine Screen,Urine Not Detected (NotDetected); Methadone Screen, Urine Not Detected (NotDetected); Opiate Screen,Urine Not Detected (NotDetected); Oxycodone Screen, Urine Not Detected (NotDetected); Phencyclidine Screen,Urine Not Detected (NotDetected); Tricyclic Antidepressant,Urine Not Detected (NotDetected); Urn Cannabinoid Scrn Not Detected (NotDetected)
[2019-04-23 22:55] LABS: Appearance,Urine Clear (Clear); Bilirubin,Urine Negative (Negative); Blood,Urine Negative (Negative); Color,Urine Colorless; Glucose,Urine (UA) Negative (Negative); Ketones,Urine Negative (Negative); Leukocyte Esterase,Urine Negative (Negative); Nitrite,Urine Negative (Negative); PH, Urine 5.5 (5.0-8.0); Protein,Urine Negative (Negative); Specific Gravity,Urine 1.005 (1.001-1.035); Urobilinogen,Urine <2.0 mg/dL (<2.0)
[2019-04-23] MEDS ORDERED: LORazepam 1 MG TAB PO STA (23:49)
[2019-04-24 06:58] VITALS: BP 101/79; PULSE 89
== END 2019-04-24 06:58 | disposition home or self-care (01) ==
LOC: EC 21:52
DX: F10.129 Alcohol abuse with intoxication, unspecified (principal); F39 Unspecified mood [affective] disorder; Z85.41 Personal history of malignant neoplasm of cervix uteri; F32.9 Major depressive disorder, single episode, unspecified; F41.9 Anxiety disorder, unspecified; Z79.899 Other long term (current) drug therapy; Z85.828 Personal history of other malignant neoplasm of skin
CPT/HCPCS: 80306; 81003; 82075; 99285

== ENCOUNTER 2019-04-27 13:01 | Emergency (ER) | payer OTHER ==
[2019-04-27 13:38] VITALS: RESP 18
--- NOTE | 2019-04-27 13:59 | ED ---
General Adult HPI - General Source: patient, family, police, RN notes reviewed Mode of arrival: ambulatory Limitations: no limitations <Roland Parekh - Last Filed: 04/27/19 13:51> <Debra Maldonado - Last Filed: 04/28/19 03:46> - General Chief complaint: Psychiatric Symptoms Stated complaint: Sucidal-petition Time Seen by Provider: 04/27/19 13:43 - History of Present Illness Initial comments: Patient is a pleasant 33-year-old female presenting to the emergency department with complaints of depression and suicidal ideation. Patient has bipolar and does get like this at times. Patient states she was on the side of the road and did have thoughts of self-harm. Patient denies going into the road to harm herself. No homicidal thoughts. No hallucinations. No new physical complaints. No street drug use. Patient does drink alcohol and did drink some today. (Roland Parekh) - Related Data Home Medications Medication Instructions Recorded Confirmed traZODone HCL 50 mg PO HS 03/11/17 04/27/19 DULoxetine HCL [Cymbalta] 60 mg PO HS 04/23/19 04/27/19 Lurasidone [Latuda] 20 mg PO HS 04/23/19 04/27/19 QUEtiapine [SEROquel] 100 mg PO HS 04/23/19 04/27/19 LORazepam [Ativan] 1 mg PO TID PRN 04/27/19 04/27/19 Allergies Allergy/AdvReac Type Severity Reaction Status Date / Time No Known Allergies Allergy Verified 04/27/19 15:02 Review of Systems ROS Other: All systems not noted in ROS Statement are negative. Constitutional: Denies: fever Eyes: Denies: eye pain ENT: Denies: ear pain Respiratory: Denies: cough Cardiovascular: Denies: chest pain Endocrine: Denies: fatigue Gastrointestinal: Denies: abdominal pain Genitourinary: Denies: dysuria Musculoskeletal: Denies: back pain Skin: Denies: rash Neurological: Denies: headache Psychiatric: Reports: depression, suicidal thoughts. Denies: auditory hallucinations, visual hallucinations, homicidal thoughts <Roland Parekh - Last Filed: 04/27/19 13:51> ROS Other: All systems not noted in ROS Statement are negative. <Debra Maldonado - Last Filed: 04/28/19 03:46> ROS Statement: Those systems with pertinent positive or pertinent negative responses have been documented in the HPI. Past Medical History Past Medical History: Cancer Additional Past Medical History / Comment(s): alcoholism, insomnia, past cervical cancer History of Any Multi-Drug Resistant Organisms: None Reported Past Surgical History: Uterine Ablation Additional Past Surgical History / Comment(s): rhinoplasty, cervical cancer currently and skin cancer lymph node removed in the 6th grade Past Anesthesia/Blood Transfusion Reactions: No Reported Reaction Past Psychological History: Anxiety, Bipolar, Depression Smoking Status: Never smoker Past Alcohol Use History: Occasional Past Drug Use History: None Reported - Past Family History Father Additional Family Medical History / Comment(s): Father is age 57. Alcoholism, diverticulosis Mother Additional Family Medical History / Comment(s): Mother is alive at age 65 with no major medical problems. Brother(s) Additional Family Medical History / Comment(s): Patient has 2 brothers with no major medical problems. She does not have any sisters. She does not have any children. <Roland Parekh - Last Filed: 04/27/19 13:51> General Exam Limitations: no limitations General appearance: alert, in no apparent distress Head exam: Present: atraumatic Eye exam: Present: normal appearance, PERRL, EOMI ENT exam: Present: normal oropharynx Neck exam: Present: normal inspection Respiratory exam: Present: normal lung sounds bilaterally Cardiovascular Exam: Present: regular rate, normal rhythm GI/Abdominal exam: Present: soft. Absent: tenderness Extremities exam: Present: normal inspection Neurological exam: Present: alert Psychiatric exam: Present: depressed Skin exam: Present: normal color <Roland Parekh - Last Filed: 04/27/19 13:51> Course <Roland Parekh - Last Filed: 04/27/19 13:51> Vital Signs 04/27/19 04/27/19 04/27/19 13:35 19:26 22:38 Temperature 98.1 F 98 F 98 F Pulse Rate 92 99 83 Respiratory 18 18 18 Rate Blood Pressure 120/86 110/85 119/88 O2 Sat by Pulse 94 L 96 98 Oximetry - Reevaluation(s) Reevaluation #1: 04/27/19 13:52 Patient clear for mental health services evaluation when legally sober. (Roland Parekh) Medical Decision Making <Debra Maldonado - Last Filed: 04/28/19 03:46> - Medical Decision Making The patient was placed into room 18. A thorough history and physical exam was performed. The patient is intoxicated. She is allowed to sober up. She is evaluated by [facility] at 8:30 and they do state that the patient is stable for discharge at this time. I do reevaluate the patient after [facility] evaluation. The patient states that she is not suicidal at this time. She is of sound mind incapable of making her own decisions. Her boyfriend is at bedside and does agree with hospital discharge. She is instructed to follow-up with her primary care physician. If she has any new or worsening symptoms she should return to the emergency room. Patient was then discharged home in stable condition (Debra Maldonado) - Lab Data Lab Results 04/27/19 Range/Units 13:53 Urine Opiates Screen Not Detected (NotDetected) Ur Oxycodone Screen Not Detected (NotDetected) Urine Methadone Screen Not Detected (NotDetected) Ur Propoxyphene Screen Not Detected (NotDetected) Ur Barbiturates Screen Not Detected (NotDetected) U Tricyclic Antidepress Not Detected (NotDetected) Ur Phencyclidine Scrn Not Detected (NotDetected) Ur Amphetamines Screen Not Detected (NotDetected) U Methamphetamines Scrn Not Detected (NotDetected) U Benzodiazepines Scrn Not Detected (NotDetected) Urine Cocaine Screen Not Detected (NotDetected) U Marijuana (THC) Screen Not Detected (NotDetected) Disposition <Roland Parekh - Last Filed: 04/27/19 13:51> Is patient prescribed a controlled substance at d/c from ED?: No Time of Disposition: 22:34 <Debra Maldonado - Last Filed: 04/28/19 03:46> Clinical Impression: Alcoholic intoxication, Depression Disposition: HOME SELF-CARE Condition: Stable Instructions (If sedation given, give patient instructions): Depression (ED) Additional Instructions: Please follow-up with your primary care physician in 2-4 days. Return to the emergency department for any new or worsening symptoms Referrals: Rahat Fletcher, [Primary Care Provider] - 1-2 days
[2019-04-27 14:28] LABS: Amphetamine Screen,Urine Not Detected (NotDetected); Barbiturate Screen,Urine Not Detected (NotDetected); Benzodiazepines Screen,Urine Not Detected (NotDetected); Cocaine Screen,Urine Not Detected (NotDetected); Methadone Screen, Urine Not Detected (NotDetected); Opiate Screen,Urine Not Detected (NotDetected); Oxycodone Screen, Urine Not Detected (NotDetected); Phencyclidine Screen,Urine Not Detected (NotDetected); Tricyclic Antidepressant,Urine Not Detected (NotDetected); Urn Cannabinoid Scrn Not Detected (NotDetected)
[2019-04-27] MEDS ORDERED: LORazepam 1 MG TAB PO STA (17:46)
[2019-04-27 19:28] VITALS: TEMP 98
[2019-04-27 22:41] VITALS: BP 119/88; PULSE 83
== END 2019-04-27 22:48 | disposition home or self-care (01) ==
LOC: EC 13:01
DX: F10.129 Alcohol abuse with intoxication, unspecified (principal); F31.9 Bipolar disorder, unspecified; R45.851 Suicidal ideations; F41.9 Anxiety disorder, unspecified; Z85.41 Personal history of malignant neoplasm of cervix uteri; Z79.899 Other long term (current) drug therapy
CPT/HCPCS: 80306; 82075; 99285

== ENCOUNTER 2019-04-29 10:27 | Emergency (ER) | payer OTHER ==
[2019-04-29 10:45] VITALS: BP 117/79; PULSE 77; RESP 16; TEMP 98.3
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
[2019-04-29] MEDS ORDERED: IBUPROFEN 600 MG TAB PO STA (11:34)
[2019-04-29] MEDS ORDERED: ACETAMINOPHEN TAB 325 MG TAB PO STA (11:34)
--- NOTE | 2019-04-29 12:02 | XR ---
EXAMINATION TYPE: XR cervical spine comp DATE OF EXAM: 04/29/2019 TECHNIQUE: Frontal, lateral, oblique, swimmers, and open mouth view of the cervical spine are obtaine d. HISTORY: Neck pain COMPARISON: None FINDINGS: The cervical spine is visualized in its entirety from C1 thru the top of T1 level, it is s atisfactory in alignment without evidence of acute fracture or dislocation. The pre-vertebral soft t issue appears within normal limits. The C1-C2 articulation is within normal limits on the open mouth view. The oblique images are within normal limits. There is straightening of usual cervical lordosi s. IMPRESSION: No acute fracture or dislocation is seen in the cervical spine. Straightening of usual c ervical lordosis may be on the basis of muscular sprain, spasm or patient positioning.
== END 2019-04-29 12:32 | disposition home or self-care (01) ==
LOC: EC 10:27
DX: S52.612A Displaced fracture of left ulna styloid process, initial encounter for closed fracture (principal); S13.4XXA Sprain of ligaments of cervical spine, initial encounter; R31.9 Hematuria, unspecified; F31.9 Bipolar disorder, unspecified; F41.9 Anxiety disorder, unspecified; Z85.41 Personal history of malignant neoplasm of cervix uteri; Z79.899 Other long term (current) drug therapy; V89.2XXA Person injured in unspecified motor-vehicle accident, traffic, initial encounter; Y92.410 Unspecified street and highway as the place of occurrence of the external cause
CPT/HCPCS: 29125; 72050; 99284

== ENCOUNTER 2019-05-02 | Emergency (ER) | payer OTHER ==
[2019-05-02 00:06] VITALS: RESP 18
[2019-05-02] MEDS ORDERED: LORazepam 1 MG TAB PO STA (01:01)
[2019-05-02 01:37] LABS: Amphetamine Screen,Urine Not Detected (NotDetected); Barbiturate Screen,Urine Not Detected (NotDetected); Benzodiazepines Screen,Urine Detected (NotDetected); Cocaine Screen,Urine Not Detected (NotDetected); Methadone Screen, Urine Not Detected (NotDetected); Opiate Screen,Urine Not Detected (NotDetected); Oxycodone Screen, Urine Not Detected (NotDetected); Phencyclidine Screen,Urine Not Detected (NotDetected); Tricyclic Antidepressant,Urine Not Detected (NotDetected); Urn Cannabinoid Scrn Not Detected (NotDetected)
[2019-05-02 01:41] LABS: Basophils # (A) 0.1 k/uL (0-0.2); Basophils % (A) 1 %; Eosinophils # (A) 0.1 k/uL (0-0.7); Eosinophils % (A) 1 %; HCT 41.1 % (34.0-46.0); HGB 13.7 gm/dL (11.4-16.0); Lymphocytes # (A) 2.7 k/uL (1.0-4.8); Lymphocytes % (A) 35 %; MCHC 33.4 g/dL (31.0-37.0); Mean Platelet Volume 6.3; Monocytes # (A) 0.2 k/uL (0-1.0); Monocytes % (A) 3 %; Neutrophils # (A) 4.6 k/uL (1.3-7.7); Neutrophils % (A) 59 %; Platelet Count 424 k/uL (150-450); RBC 4.57 m/uL (3.80-5.40); RDW 13.6 % (11.5-15.5); WBC 7.7 k/uL (3.8-10.6)
[2019-05-02 01:51] LABS: ALT 7 U/L (9-52); AST 23 U/L (14-36); African American GFR (CKD) >90 (>60 ml/min/1.73 sqM); Alkaline Phosphatase 64 U/L (38-126); Anion Gap 15 mmol/L; Blood Urea Nitrogen 9 mg/dL (7-17); Calcium 9.3 mg/dL (8.4-10.2); Carbon Dioxide 23 mmol/L (22-30); Chloride 104 mmol/L (98-107); Glucose 94 mg/dL (74-99); Potassium 4.3 mmol/L (3.5-5.1); Sodium 142 mmol/L (137-145); Total Bilirubin 0.4 mg/dL (0.2-1.3); Total Protein 8.7 g/dL (6.3-8.2)
[2019-05-02] MEDS ORDERED: ACETAMINOPHEN TAB 325 MG TAB PO STA (01:56)
[2019-05-02] MEDS ORDERED: traZODone HCL 50 MG TAB PO ONE (04:09)
[2019-05-02] MEDS ORDERED: QUEtiapine 100 MG TAB PO STA (04:10)
[2019-05-02] MEDS ORDERED: IBUPROFEN 600 MG TAB PO PRN (04:27)
[2019-05-02] MEDS ORDERED: ACETAMINOPHEN TAB 325 MG TAB PO PRN (04:28)
[2019-05-02] MEDS ORDERED: DULoxetine HCL 60 MG CAPSULE.DR PO ONE (04:30)
--- NOTE | 2019-05-02 04:52 | ED ---
Psych HPI - General Source: patient Mode of arrival: ambulatory <Oxana Campbell - Last Filed: 05/02/19 06:39> <Chance Pedraza - Last Filed: 05/02/19 09:48> - General Chief Complaint: Psychiatric Symptoms Stated Complaint: Suicidal Time Seen by Provider: 05/02/19 00:20 - History of Present Illness Initial Comments: Yaritza is a 33-year-old female with a history of bipolar who presents the emergency department today for reevaluation of suicidal thoughts. Patient was seen and evaluated earlier in the week for suicidal thought she was cleared by [facility] however patient reports she continues to feel depressed she continues to have thoughts of killing herself she states that she plans to jump off a bridge. She reports she's been compliant with all of her medications however she doesn't feel they are working. She states that she developed her has a psychiatrist her medications are managed by her primary care physician and she does not feel this is adequate. Patient has had inpatient psychiatric care in the past and feels that she needs it at this time. (Oxana Campbell) - Related Data Home Medications Medication Instructions Recorded Confirmed traZODone HCL 50 mg PO HS 03/11/17 05/02/19 DULoxetine HCL [Cymbalta] 60 mg PO HS 04/23/19 05/02/19 Lurasidone [Latuda] 20 mg PO HS 04/23/19 05/02/19 QUEtiapine [SEROquel] 100 mg PO HS 04/23/19 05/02/19 LORazepam [Ativan] 1 mg PO TID PRN 04/27/19 05/02/19 Previous Rx's Medication Instructions Recorded Ibuprofen [Motrin] 600 mg PO Q8HR PRN #20 tab 04/29/19 Allergies Allergy/AdvReac Type Severity Reaction Status Date / Time No Known Allergies Allergy Verified 05/02/19 08:19 Review of Systems ROS Other: All systems not noted in ROS Statement are negative. <Oxana Campbell - Last Filed: 05/02/19 06:39> ROS Other: All systems not noted in ROS Statement are negative. <Chance Pedraza - Last Filed: 05/02/19 09:48> ROS Statement: Those systems with pertinent positive or pertinent negative responses have been documented in the HPI. Past Medical History Past Medical History: Cancer Additional Past Medical History / Comment(s): alcoholism, insomnia, past cervical cancer History of Any Multi-Drug Resistant Organisms: None Reported Past Surgical History: Uterine Ablation Additional Past Surgical History / Comment(s): rhinoplasty, cervical cancer currently and skin cancer lymph node removed in the 6th grade Past Anesthesia/Blood Transfusion Reactions: No Reported Reaction Past Psychological History: Anxiety, Bipolar, Depression Smoking Status: Never smoker Past Alcohol Use History: Occasional Past Drug Use History: None Reported - Past Family History Father Additional Family Medical History / Comment(s): Father is age 57. Alcoholism, diverticulosis Mother Additional Family Medical History / Comment(s): Mother is alive at age 65 with no major medical problems. Brother(s) Additional Family Medical History / Comment(s): Patient has 2 brothers with no major medical problems. She does not have any sisters. She does not have any children. <Oxana Campbell - Last Filed: 05/02/19 06:39> General Exam Limitations: no limitations <Oxana Campbell - Last Filed: 05/02/19 06:39> - General Exam Comments Initial Comments: Physical Exam GENERAL: Patient is well-developed and well-nourished. Patient is nontoxic and well-hydrated and is in no distress. HENT: Normocephalic, Atraumatic. EYES: PERRL, EOMI PULMONARY: Unlabored respirations. No audible rales rhonchi or wheezing was noted. CARDIOVASCULAR: There is a regular rate and rhythm without any murmurs gallops or rubs. ABDOMEN: Soft and nontender with normal bowel sounds. SKIN: Skin is clear with no lesions or rashes and otherwise unremarkable. : Deferred NEUROLOGIC: Patient is alert and oriented x3. Moving all extremities spontaneously MUSCULOSKELETAL: Left wrist and hand are in a splint secondary to known fracture PSYCHIATRIC: Anxious, suicidal (Oxana Campbell) Course Vital Signs 05/02/19 00:04 Temperature 98.3 F Pulse Rate 109 H Respiratory 18 Rate Blood Pressure 124/91 O2 Sat by Pulse 96 Oximetry Medical Decision Making - Lab Data Result diagrams: 05/02/19 01:14 05/02/19 01:14 <Oxana Campbell - Last Filed: 05/02/19 06:39> - Lab Data Result diagrams: 05/02/19 01:14 05/02/19 01:14 <Chance Pedraza - Last Filed: 05/02/19 09:48> - Medical Decision Making Patient was seen and evaluated, history was obtained from the patient and mother bedside to find this patient has a known psychiatric history she was evaluated earlier at work and deemed safe for discharge however patient continues to have bouts of suicide. On initial evaluation the patient is noted to be intoxicated, she will be sober for evaluation by EPS at 7 AM. Patient care is signed out to Dr. Pedraza at shift change. He'll follow up on EPS or limitations and disposition of this patient. (Oxana Campbell) EPS evaluated the patient and determined the patient we discharged home. Patient stated that she would be safe. (Chance Pedraza) - Lab Data Lab Results 05/02/19 05/02/19 05/02/19 Range/Units 01:05 01:05 01:14 WBC 7.7 (3.8-10.6) k/uL RBC 4.57 (3.80-5.40) m/uL Hgb 13.7 (11.4-16.0) gm/dL Hct 41.1 (34.0-46.0) % MCV 90.0 (80.0-100.0) fL MCH 30.0 (25.0-35.0) pg MCHC 33.4 (31.0-37.0) g/dL RDW 13.6 (11.5-15.5) % Plt Count 424 (150-450) k/uL Neutrophils % 59 % Lymphocytes % 35 % Monocytes % 3 % Eosinophils % 1 % Basophils % 1 % Neutrophils # 4.6 (1.3-7.7) k/uL Lymphocytes # 2.7 (1.0-4.8) k/uL Monocytes # 0.2 (0-1.0) k/uL Eosinophils # 0.1 (0-0.7) k/uL Basophils # 0.1 (0-0.2) k/uL Sodium (137-145) mmol/L Potassium (3.5-5.1) mmol/L Chloride (98-107) mmol/L Carbon Dioxide (22-30) mmol/L Anion Gap mmol/L BUN (7-17) mg/dL Creatinine (0.52-1.04) mg/dL Est GFR (CKD-EPI)AfAm (>60 ml/min/1.73 sqM) Est GFR (CKD-EPI)NonAf (>60 ml/min/1.73 sqM) Glucose (74-99) mg/dL Calcium (8.4-10.2) mg/dL Total Bilirubin (0.2-1.3) mg/dL AST (14-36) U/L ALT (9-52) U/L Alkaline Phosphatase (38-126) U/L Total Protein (6.3-8.2) g/dL Albumin (3.5-5.0) g/dL Urine HCG, Qual Not Detected (Not Detectd) Urine Opiates Screen Not Detected (NotDetected) Ur Oxycodone Screen Not Detected (NotDetected) Urine Methadone Screen Not Detected (NotDetected) Ur Propoxyphene Screen Not Detected (NotDetected) Ur Barbiturates Screen Not Detected (NotDetected) U Tricyclic Antidepress Not Detected (NotDetected) Ur Phencyclidine Scrn Not Detected (NotDetected) Ur Amphetamines Screen Not Detected (NotDetected) U Methamphetamines Scrn Not Detected (NotDetected) U Benzodiazepines Scrn Detected H (NotDetected) Urine Cocaine Screen Not Detected (NotDetected) U Marijuana (THC) Screen Not Detected (NotDetected) 05/02/19 Range/Units 01:14 WBC (3.8-10.6) k/uL RBC (3.80-5.40) m/uL Hgb (11.4-16.0) gm/dL Hct (34.0-46.0) % MCV (80.0-100.0) fL MCH (25.0-35.0) pg MCHC (31.0-37.0) g/dL RDW (11.5-15.5) % Plt Count (150-450) k/uL Neutrophils % % Lymphocytes % % Monocytes % % Eosinophils % % Basophils % % Neutrophils # (1.3-7.7) k/uL Lymphocytes # (1.0-4.8) k/uL Monocytes # (0-1.0) k/uL Eosinophils # (0-0.7) k/uL Basophils # (0-0.2) k/uL Sodium 142 (137-145) mmol/L Potassium 4.3 (3.5-5.1) mmol/L Chloride 104 (98-107) mmol/L Carbon Dioxide 23 (22-30) mmol/L Anion Gap 15 mmol/L BUN 9 (7-17) mg/dL Creatinine 0.75 (0.52-1.04) mg/dL Est GFR (CKD-EPI)AfAm >90 (>60 ml/min/1.73 sqM) Est GFR (CKD-EPI)NonAf >90 (>60 ml/min/1.73 sqM) Glucose 94 (74-99) mg/dL Calcium 9.3 (8.4-10.2) mg/dL Total Bilirubin 0.4 (0.2-1.3) mg/dL AST 23 (14-36) U/L ALT 7 L (9-52) U/L Alkaline Phosphatase 64 (38-126) U/L Total Protein 8.7 H (6.3-8.2) g/dL Albumin 5.0 (3.5-5.0) g/dL Urine HCG, Qual (Not Detectd) Urine Opiates Screen (NotDetected) Ur Oxycodone Screen (NotDetected) Urine Methadone Screen (NotDetected) Ur Propoxyphene Screen (NotDetected) Ur Barbiturates Screen (NotDetected) U Tricyclic Antidepress (NotDetected) Ur Phencyclidine Scrn (NotDetected) Ur Amphetamines Screen (NotDetected) U Methamphetamines Scrn (NotDetected) U Benzodiazepines Scrn (NotDetected) Urine Cocaine Screen (NotDetected) U Marijuana (THC) Screen (NotDetected) Disposition Is patient prescribed a controlled substance at d/c from ED?: No <Oxana Campbell - Last Filed: 05/02/19 06:39> Is patient prescribed a controlled substance at d/c from ED?: No Time of Disposition: 09:48 <Chance Pedraza - Last Filed: 05/02/19 09:48> Clinical Impression: Bipolar disorder, Situational depression, Alcohol intoxication Disposition: HOME SELF-CARE Condition: Stable Referrals: Rahat Fletcher DO [Primary Care Provider] - 1-2 days
[2019-05-02] MEDS ORDERED: LURASIDONE 20 MG TAB PO ONE (05:10)
[2019-05-02] MEDS ORDERED: DULoxetine HCL 60 MG CAPSULE.DR PO SCH (09:00)
[2019-05-02 10:17] VITALS: BP 126/74; PULSE 89; TEMP 98
== END 2019-05-02 10:17 | disposition home or self-care (01) ==
LOC: EC
DX: F43.21 Adjustment disorder with depressed mood (principal); F31.9 Bipolar disorder, unspecified; F10.129 Alcohol abuse with intoxication, unspecified; R45.851 Suicidal ideations; G47.00 Insomnia, unspecified; Z85.41 Personal history of malignant neoplasm of cervix uteri; Z79.899 Other long term (current) drug therapy; Z53.29 Procedure and treatment not carried out because of patient's decision for other reasons
CPT/HCPCS: 36415; 80053; 80306; 81025; 82075; 85025; 99285

== ENCOUNTER 2019-05-05 01:26 | Inpatient (IN) | payer MEDICAID, OTHER ==
--- NOTE | 2019-05-05 01:36 | ED ---
Psych HPI - General Stated Complaint: Petitioned Time Seen by Provider: 05/05/19 01:36 Source: RN notes reviewed, old records reviewed Limitations: altered mental status - History of Present Illness Initial Comments: This is a 33-year-old female the ER for evaluation. Patient does say for evaluation regarding altered mental status, EKG feelings, patient's petition for psychiatric evaluation, patient is severely intoxicated and regarding monitoring of combative upon questioning MD Complaint: suicidal ideation, feels depressed, altered mental status -: unknown Associated Psychiatric Symptoms: depression, suicidal ideation, racing thoughts Quality: getting worse Improves With: none Context: recent alcohol abuse Associated Symptoms: denies other symptoms Treatments Prior to Arrival: placed on mental health hold If Self Harm: admits thoughts of self harm - Related Data Home Medications Medication Instructions Recorded Confirmed traZODone HCL 50 mg PO HS 03/11/17 05/05/19 DULoxetine HCL [Cymbalta] 60 mg PO HS 04/23/19 05/05/19 Lurasidone [Latuda] 20 mg PO HS 04/23/19 05/05/19 QUEtiapine [SEROquel] 100 mg PO HS 04/23/19 05/05/19 LORazepam [Ativan] 1 mg PO TID PRN 04/27/19 05/05/19 Previous Rx's Medication Instructions Recorded Ibuprofen [Motrin] 600 mg PO Q8HR PRN #20 tab 04/29/19 Allergies Allergy/AdvReac Type Severity Reaction Status Date / Time No Known Allergies Allergy Verified 05/05/19 07:18 Review of Systems ROS Statement: Those systems with pertinent positive or pertinent negative responses have been documented in the HPI. ROS Other: All systems not noted in ROS Statement are negative. Past Medical History Past Medical History: Cancer Additional Past Medical History / Comment(s): alcoholism, insomnia, past cervical cancer History of Any Multi-Drug Resistant Organisms: None Reported Past Surgical History: Uterine Ablation Additional Past Surgical History / Comment(s): rhinoplasty, cervical cancer currently and skin cancer lymph node removed in the 6th grade Past Anesthesia/Blood Transfusion Reactions: No Reported Reaction Past Psychological History: Anxiety, Bipolar, Depression Smoking Status: Never smoker Past Alcohol Use History: Occasional Past Drug Use History: None Reported - Past Family History Father Additional Family Medical History / Comment(s): Father is age 57. Alcoholism, diverticulosis Mother Additional Family Medical History / Comment(s): Mother is alive at age 65 with no major medical problems. Brother(s) Additional Family Medical History / Comment(s): Patient has 2 brothers with no major medical problems. She does not have any sisters. She does not have any children. General Exam General appearance: alert, appears intoxicated, anxious Head exam: Present: atraumatic, normocephalic, normal inspection Eye exam: Present: normal appearance, PERRL, EOMI. Absent: scleral icterus, conjunctival injection, periorbital swelling ENT exam: Present: normal exam, mucous membranes moist Neck exam: Present: normal inspection. Absent: tenderness, meningismus, lymphadenopathy Respiratory exam: Present: normal lung sounds bilaterally. Absent: respiratory distress, wheezes, rales, rhonchi, stridor Cardiovascular Exam: Present: normal rhythm, tachycardia, normal heart sounds. Absent: systolic murmur, diastolic murmur, rubs, gallop, clicks GI/Abdominal exam: Present: soft, normal bowel sounds. Absent: distended, tenderness, guarding, rebound, rigid Extremities exam: Present: normal inspection, full ROM, normal capillary refill. Absent: tenderness, pedal edema, joint swelling, calf tenderness Back exam: Present: normal inspection Neurological exam: Present: alert, oriented X3, CN II-XII intact Psychiatric exam: Present: agitated, anxious Skin exam: Present: warm, dry, intact, normal color. Absent: rash Course Vital Signs 05/05/19 01:34 Temperature 98.0 F Pulse Rate 115 H Respiratory 18 Rate Blood Pressure 124/92 O2 Sat by Pulse 96 Oximetry - Reevaluation(s) Reevaluation #1: 05/05/19 05:36 Medical records reviewed Medical Decision Making - Medical Decision Making 33 female admitted for psychiatric evaluation and treatment - Lab Data Lab Results 05/05/19 05/05/19 Range/Units 03:05 03:05 Urine Color Colorless Urine Appearance Clear (Clear) Urine pH 5.0 (5.0-8.0) Ur Specific [place] 1.002 (1.001-1.035) Urine Protein Negative (Negative) Urine Glucose (UA) Negative (Negative) Urine Ketones Negative (Negative) Urine Blood Negative (Negative) Urine Nitrite Negative (Negative) Urine Bilirubin Negative (Negative) Urine Urobilinogen <2.0 (<2.0) mg/dL Ur Leukocyte Esterase Negative (Negative) Urine HCG, Qual Not Detected (Not Detectd) Urine Opiates Screen Not Detected (NotDetected) Ur Oxycodone Screen Not Detected (NotDetected) Urine Methadone Screen Not Detected (NotDetected) Ur Propoxyphene Screen Not Detected (NotDetected) Ur Barbiturates Screen Not Detected (NotDetected) U Tricyclic Antidepress Not Detected (NotDetected) Ur Phencyclidine Scrn Not Detected (NotDetected) Ur Amphetamines Screen Not Detected (NotDetected) U Methamphetamines Scrn Not Detected (NotDetected) U Benzodiazepines Scrn Not Detected (NotDetected) Urine Cocaine Screen Not Detected (NotDetected) U Marijuana (THC) Screen Not Detected (NotDetected) Disposition Clinical Impression: Depression, Mood disorder, Psychosis Disposition: TRANSFER TO PSYCH HOSP/UNIT Condition: Fair Is patient prescribed a controlled substance at d/c from ED?: No
[2019-05-05 03:20] LABS: Appearance,Urine Clear (Clear); Bilirubin,Urine Negative (Negative); Blood,Urine Negative (Negative); Color,Urine Colorless; Glucose,Urine (UA) Negative (Negative); Ketones,Urine Negative (Negative); Leukocyte Esterase,Urine Negative (Negative); Nitrite,Urine Negative (Negative); Protein,Urine Negative (Negative); Specific Gravity,Urine 1.002 (1.001-1.035); Urobilinogen,Urine <2.0 mg/dL (<2.0)
[2019-05-05 03:34] LABS: Amphetamine Screen,Urine Not Detected (NotDetected); Barbiturate Screen,Urine Not Detected (NotDetected); Benzodiazepines Screen,Urine Not Detected (NotDetected); Cocaine Screen,Urine Not Detected (NotDetected); Methadone Screen, Urine Not Detected (NotDetected); Opiate Screen,Urine Not Detected (NotDetected); Oxycodone Screen, Urine Not Detected (NotDetected); Phencyclidine Screen,Urine Not Detected (NotDetected); Tricyclic Antidepressant,Urine Not Detected (NotDetected); Urn Cannabinoid Scrn Not Detected (NotDetected)
[2019-05-05] MEDS ORDERED: diphenhydrAMINE 50 MG/ML 1 ML VIAL IM STA (04:49)
[2019-05-05] MEDS ORDERED: LORazepam 2 MG/ML INJ IM STA (04:49)
[2019-05-05] MEDS ORDERED: IBUPROFEN 600 MG TAB PO STA (07:47)
[2019-05-05] MEDS ORDERED: LORazepam 1 MG TAB PO STA (07:56)
[2019-05-05] MEDS ORDERED: MAG HYDROX/AL HYDROX/SIMETH 30 ML CUP PO PRN (17:28)
[2019-05-05] MEDS ORDERED: MAGNESIUM HYDROXIDE 2,400 MG/10 ML CUP PO PRN (17:28)
[2019-05-05] MEDS ORDERED: LORazepam 2 MG/ML INJ IM PRN (17:30)
[2019-05-05] MEDS: LORazepam 1 MG TAB PO PRN (18:37)
[2019-05-05] MEDS: ACETAMINOPHEN TAB 325 MG TAB PO PRN (18:37)
[2019-05-05] MEDS: DULoxetine HCL 60 MG CAPSULE.DR PO SCH (20:21)
[2019-05-05] MEDS: QUEtiapine 100 MG TAB PO SCH (20:21)
[2019-05-05] MEDS ORDERED: traZODone HCL 50 MG TAB PO SCH (21:00)
[2019-05-06] MEDS: LORazepam 1 MG TAB PO PRN ×2 (08:26→16:39)
[2019-05-06] MEDS: ACETAMINOPHEN TAB 325 MG TAB PO PRN (08:26)
[2019-05-06 10:15] LABS: Basophils % (A) 1 %; Eosinophils # (A) 0.1 k/uL (0-0.7); Eosinophils % (A) 2 %; HCT 42.1 % (34.0-46.0); HGB 13.5 gm/dL (11.4-16.0); Lymphocytes # (A) 1.5 k/uL (1.0-4.8); Lymphocytes % (A) 35 %; MCH 29.9 pg (25.0-35.0); MCHC 32.1 g/dL (31.0-37.0); MCV 93.2 fL (80.0-100.0); Mean Platelet Volume 6.5; Monocytes # (A) 0.3 k/uL (0-1.0); Monocytes % (A) 7 %; Neutrophils # (A) 2.2 k/uL (1.3-7.7); Neutrophils % (A) 53 %; Platelet Count 408 k/uL (150-450); RBC 4.51 m/uL (3.80-5.40); RDW 13.5 % (11.5-15.5); WBC 4.3 k/uL (3.8-10.6)
[2019-05-06 10:18] LABS: ALT <6 U/L (9-52); AST 19 U/L (14-36); African American GFR (CKD) >90 (>60 ml/min/1.73 sqM); Albumin 4.7 g/dL (3.5-5.0); Alkaline Phosphatase 56 U/L (38-126); Anion Gap 11 mmol/L; Blood Urea Nitrogen 16 mg/dL (7-17); Calcium 9.8 mg/dL (8.4-10.2); Carbon Dioxide 27 mmol/L (22-30); Chloride 102 mmol/L (98-107); Cholesterol 256 mg/dL (<200); Glucose 76 mg/dL (74-99); HDL Cholesterol 70 mg/dL (40-60); LDL Cholesterol,Calculated 156 mg/dL (0-99); Potassium 4.8 mmol/L (3.5-5.1); Sodium 140 mmol/L (137-145); Total Bilirubin 0.6 mg/dL (0.2-1.3); Total Protein 8.2 g/dL (6.3-8.2); Triglycerides 149 mg/dL (<150)
--- NOTE | 2019-05-06 12:43 | P.HP ---
Psychiatric H&P - . H&P Date: 05/06/19 History & Physical: Allergies Allergy/AdvReac Type Severity Reaction Status Date / Time No Known Allergies Allergy Verified 05/05/19 07:18 Vital Signs Temp 97.7 F 05/06/19 06:35 Pulse 63 05/06/19 06:35 Resp 16 05/06/19 06:35 BP 114/67 05/06/19 06:35 Pulse Ox 97 05/05/19 18:17 Intake & Output 05/05/19 05/06/19 05/06/19 18:59 06:59 18:59 Weight 52.8 kg Laboratory Last Values Urine Color Colorless 05/05/19 03:05 Urine Appearance Clear (Clear) 05/05/19 03:05 Urine pH 5.0 (5.0-8.0) 05/05/19 03:05 Ur Specific [place] 1.002 (1.001-1.035) 05/05/19 03:05 Urine Protein Negative (Negative) 05/05/19 03:05 Urine Glucose (UA) Negative (Negative) 05/05/19 03:05 Urine Ketones Negative (Negative) 05/05/19 03:05 Urine Blood Negative (Negative) 05/05/19 03:05 Urine Nitrite Negative (Negative) 05/05/19 03:05 Urine Bilirubin Negative (Negative) 05/05/19 03:05 Urine Urobilinogen <2.0 mg/dL (<2.0) 05/05/19 03:05 Ur Leukocyte Esterase Negative (Negative) 05/05/19 03:05 Urine HCG, Qual Not Detected (Not Detectd) 05/05/19 03:05 Urine Opiates Screen Not Detected (NotDetected) 05/05/19 03:05 Ur Oxycodone Screen Not Detected (NotDetected) 05/05/19 03:05 Urine Methadone Screen Not Detected (NotDetected) 05/05/19 03:05 Ur Propoxyphene Screen Not Detected (NotDetected) 05/05/19 03:05 Ur Barbiturates Screen Not Detected (NotDetected) 05/05/19 03:05 U Tricyclic Antidepress Not Detected (NotDetected) 05/05/19 03:05 Ur Phencyclidine Scrn Not Detected (NotDetected) 05/05/19 03:05 Ur Amphetamines Screen Not Detected (NotDetected) 05/05/19 03:05 U Methamphetamines Scrn Not Detected (NotDetected) 05/05/19 03:05 U Benzodiazepines Scrn Not Detected (NotDetected) 05/05/19 03:05 Urine Cocaine Screen Not Detected (NotDetected) 05/05/19 03:05 U Marijuana (THC) Screen Not Detected (NotDetected) 05/05/19 03:05 05/06/19 10:07 IDENTIFYING DATA: Patient is a 33-year-old female with a history significant for bipolar disorder and alcohol use, unmarried however has a long- term boyfriend, no kids, lives alone in a house and 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 HPI: Patient presented to the hospital with complaints of feeling depressed and relapsing on alcohol after being sober for 2 years. Patient stated that she was thinking about jumping off a bridge to kill herself after drinking a bottle of wine. She states that she had second thoughts of wanting to harm herself and called 911 instead. She claims that she has been having suicidal ideations for the past 1-2 weeks and feels that it has been intensifying along with her use. She states that she is drinking a 6 pack every 1-2 days of beer. She states that she called her brother as he is her primary support and listens to her who informed her to go to the hospital. She also states that she has a supportive boyfriend who is currently in the and she does not get to see very often. She claims that she grew up feeling guilty and having a negative self image and self-esteem due to her mother's comments and upbringing. She claims that she relapsed on alcohol approximately 3 weeks ago as she claimed that she was around more family members and friends who were drinking due to the summer and in parties. She states that she felt that she could drink a little bit however claims that she lost control. She states that she was sober for 2 years and was going to AA meetings which helped to keep her sober. She states that her mood was "depressed", 2-3/10 when she is around her mother however when she is around her boyfriend her mood increases. She states that her mood now is improving now that she is away from alcohol and currently denies any suicidal or homicidal ideations intent or plan. At this time she denies any auditory or visual hallucinations. She denies any flight of ideas racing thoughts and increased in goal directed behavior. She does mention that her sleep has been poor sleeping fewer hours. She denies the use of any other recreational drugs including marijuana and denies any nicotine use. She claims that she has been compliant with her medications and seeing her therapist once a week. PAST PSYCHIATRIC HISTORY: Patient has a diagnosis of bipolar disorder which was diagnosed 2 years ago after a manic episode. Last admission was 2 years ago to [facility]. Admits to one previous suicide attempt 3 years ago when she overdosed and drank vodka. She goes to [facility] counseling and sees a therapist there one time a week PMH: Left arm fracture currently in a cast ALLERGIES: NO KNOWN DRUG ALLERGIES CHEMICAL DEPENDENCY HISTORY: Patient admits to drinking alcohol currently in the last 3 weeks a 6 pack of beer every 1-2 days. She denies any other recreational drug use. FAMILY PSYCHIATRIC/SUBSTANCE USE HISTORY: Father - alcohol SOCIAL HISTORY: Patient is nonmarried however has a long-term boyfriend who is supportive and currently in the . 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 MENTAL STATUS EXAM: General Appearance: Patient appears to be stated age is alert, pleasant, and cooperative. Patient has a cast on her left arm, poor hygiene and poor grooming. Behavior: Patient is calmly seated without any agitated behavior. Speech: Patient's speech is fluent and nonpressured. Mood/Affect: Patient reports their mood is "depressed", affect is congruent and shallow Suicidality/Homicidality: Patient denies having any suicidal or homicidal ideation intent or plan. Perceptions: Patient denies any auditory or visual hallucinations. Though content/process: There is no evidence of any delusional thought content and thought process is linear and goal-directed. Memory and concentration: grossly intact for the purposes of this session. AOX3, spelt WORLD backwards correctly Judgment and insight: Poor STRENGTHS/WEAKNESSES: Good support system, creative. INTELLECT: average intelligence IMPRESSIONS: Bipolar disorder, currently depressed Anxiety disorder unspecified Alcohol use disorder, moderate-severe PLAN: -Patient is admitted under voluntary status to [facility] for stabilization of psychiatric symptoms and safety. -Will start patient on Seroquel 100 mg daily at bedtime for mood stabilization, trazodone will be decreased to 25 mg daily at bedtime for sleep/mood and BuSpar will be started 5 mg twice a day for anxiety. -Discussed with patient alcohol craving medications and patient states that naltrexone did not work in the past however she is open to restarting Antabuse. -Ativan PRN for agitation/aggression -Patient was counselled on substance abuse and desired to cut back on use. -Patient was informed of the risks, benefits and side effects of the medication and patient verbally consented to taking the medications. Patient signed med consent form and was placed in chart. -NRT was offered and patient declined as patient does not smoke - on board for discharge planning 05/06/19 10:54 05/06/19 12:18 05/06/19 12:42
--- NOTE | 2019-05-06 13:14 | P.CONS ---
History of Present Illness - Reason for Consult Consult date: 05/06/19 Medical management Requesting physician: Aracelis Mueller - Chief Complaint Depression - History of Present Illness Consultation: This is a 33-year-old patient of Dr. Fletcher. Patient has a known history of bipolar disorder. Patient does live by self. Has history of alcoholism in the past. Had been to [employer] [facility]. Had been sober for 2 years. Last to 3 weeks patient alert her last period drinking heavier amounts. Has been more depressed. Has been having suicidal ideations. Patient is employed. Lives by herself. There is no obvious precipitating factor. Admitted to the psychiatry unit. Patient's appetite is okay. No fever or chills. Also anxious. Patient is trouble sleeping. Patient does have a boyfriend. Was also supportive. Patient is drinking alcohol has been more episodic in the last 2-3 weeks. Last night she had about 6 beers and a bottle of wine Review of systems: GEN.: None EYES: None HEENT: None NECK: None RESPIRATORY: None CARDIOVASCULAR: None GASTROINTESTINAL: None GENITOURINARY: None MUSCULOSKELETAL: None LYMPHATICS: None HEMATOLOGICAL: None PSYCHIATRY: Anxious and depressed NEUROLOGICAL: Trouble sleeping Past medical history: To include Alcoholism, insomnia, bipolar disorder Social history: Did go to [employer] [facility] in the past. Was sober for about 2 years. This by self. 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 Has a boyfriend. Family history: Father had alcoholism and diverticulosis Physical examination: VITAL SIGNS: 98, 115, 18, 124/92, 96% room air GENERAL: Laying in bed, tired appearing. EYES: Pupils equal. Conjunctiva normal. HEENT: External appearance of nose and ears normal, oral cavity grossly normal. NECK: JVD not raised; masses not palpable. HEART: First and second heart sounds are normal; no edema. LUNGS: Respiratory rate normal; clear to auscultation. ABDOMEN: Soft, nontender, liver spleen not palpable, no masses palpable. PSYCH: Alert and oriented x3; mood and affect slightly anxiousl. NEUROLOGICAL: Cranial nerves grossly intact; no facial asymmetry, power and sensation grossly intact. LYMPHATICS: No lymph nodes palpable in the axilla and neck Investigations: White count 4.3 hemoglobin 13.5 platelets 408 potassium 4.8 LDL 156 TSH 1.2 Assessment: -Chronic insomnia, multifactorial -Acute alcohol intake last night -Bipolar disorder with depression -Anxiety not otherwise specified Plan: Care was discussed with the patient. Did talk about simple lifestyle modif ication including keeping her busy exercise mindfulness etc. Patient and was receptive to same. She has a good support for boyfriend. Patient should follow with her PCP upon discharge Thank you Past Medical History Past Medical History: Cancer Additional Past Medical History / Comment(s): alcoholism, insomnia, past cervical cancer History of Any Multi-Drug Resistant Organisms: None Reported Past Surgical History: Uterine Ablation Additional Past Surgical History / Comment(s): rhinoplasty, cervical cancer currently and skin cancer lymph node removed in the 6th grade Past Anesthesia/Blood Transfusion Reactions: No Reported Reaction Past Psychological History: Anxiety, Bipolar, Depression Smoking Status: Never smoker Past Alcohol Use History: Occasional Past Drug Use History: None Reported - Past Family History Father Additional Family Medical History / Comment(s): Father is age 57. Alcoholism, diverticulosis Mother Additional Family Medical History / Comment(s): Mother is alive at age 65 with no major medical problems. Brother(s) Additional Family Medical History / Comment(s): Patient has 2 brothers with no major medical problems. She does not have any sisters. She does not have any children. Medications and Allergies Home Medications Medication Instructions Recorded Confirmed Type traZODone HCL 50 mg PO HS 03/11/17 05/05/19 History DULoxetine HCL [Cymbalta] 60 mg PO HS 04/23/19 05/05/19 History Lurasidone [Latuda] 20 mg PO HS 04/23/19 05/05/19 History QUEtiapine [SEROquel] 100 mg PO HS 04/23/19 05/05/19 History LORazepam [Ativan] 1 mg PO TID PRN 04/27/19 05/05/19 History Ibuprofen [Motrin] 600 mg PO Q8HR PRN #20 tab 04/29/19 05/05/19 Rx Allergies Allergy/AdvReac Type Severity Reaction Status Date / Time No Known Allergies Allergy Verified 05/05/19 07:18 Physical Exam Vitals: Vital Signs Temp Pulse Pulse Resp BP BP Pulse Ox 05/06/19 06:35 97.7 F 63 16 114/67 05/05/19 18:17 98.7 F 87 15 118/80 97 05/05/19 18:00 98.7 F 115 H 15 124/92 97 Intake and Output 05/05/19 05/06/19 05/06/19 22:59 06:59 14:59 Other: Weight 52.8 kg Results CBC & Chem 7: 05/06/19 09:15 05/06/19 09:15 Labs: Abnormal Lab Results - Last 24 Hours (Table) 05/06/19 Range/Units 09:15 ALT <6 L (9-52) U/L Cholesterol 256 H (<200) mg/dL LDL Cholesterol, Calc 156 H (0-99) mg/dL HDL Cholesterol 70 H (40-60) mg/dL
[2019-05-06] MEDS: busPIRone HCl 5 MG TAB PO SCH ×2 (14:00→20:05)
[2019-05-06] MEDS: IBUPROFEN 600 MG TAB PO PRN (16:38)
[2019-05-06 18:59] LABS: Hemoglobin A1C 5.1 % (4.0-6.0)
[2019-05-06] MEDS: QUEtiapine 100 MG TAB PO SCH (20:00)
[2019-05-06] MEDS: DULoxetine HCL 60 MG CAPSULE.DR PO SCH (20:00)
[2019-05-06] MEDS ORDERED: traZODone HCL 50 MG TAB PO SCH (21:00)
[2019-05-07] MEDS: busPIRone HCl 5 MG TAB PO SCH ×2 (08:42→20:16)
[2019-05-07] MEDS: IBUPROFEN 600 MG TAB PO PRN (08:43)
[2019-05-07] MEDS: LORazepam 1 MG TAB PO PRN ×2 (08:47→16:07)
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
--- NOTE | 2019-05-07 10:25 | P.PN ---
Progress Note - Text Progress Note Date: 05/07/19 Interval History: Patient was seen this morning in group and was agreeable to speak with residential mortgage underwriter in the office. Patient was calm and cooperative during the interview and answered all questions appropriately. Patient spoke of having a difficult night last night with regards to sleeping and claims that she will cup every hour. She states that she also had coffee later on in the evening last night which may have contributed to it. She spoke of going to groups and being shy at the moment around other people however trying to analyze other people's problems and taken what they're saying. She states that her mood is improving and claims that she does not have any racing thoughts, flight of ideas or increasing goal directed activities. She spoke about wanting to quit alcohol and states that her boyfriend would be supportive in this. She also states that she will continue to go to AA meetings locally and has sober friends to reach out to when she needs help. She spoke of starting a new medication BuSpar which has been mildly improving her anxiety. At this time patient denies any suicidal or homical ideations, intent or plan. Patient denies any auditory, visual hallucinations and denies any paranoia or delusions. Patient denies any side effects from the medications and has been compliant with meds. Mental Status Exam: General Appearance: Patient appears to be stated age is alert, pleasant, and cooperative. Patient was wearing a cast on her left arm and holding it througho ut the interview. Behavior: Patient is calmly seated without any agitated behavior. Speech: Patient's speech is fluent and nonpressured. Mood/Affect: Patient reports their mood is improving, affect is congruent Suicidality/Homicidality: Patient denies having any suicidal or homicidal ideation intent or plan. Perceptions: Patient denies any auditory or visual hallucinations. Though content/process: There is no evidence of any delusional thought content and thought process is linear and goal-directed. Memory and concentration: AOX3, grossly intact for the purposes of this session Judgment and insight: Improving Assessment Bipolar disorder, currently depressed Anxiety disorder unspecified Alcohol use disorder, moderate-severe Plan: -Patient continues to meet criteria for inpatient psychiatric admission for symptom stabilization and safety. -Medications: Will increase Seroquel 250 mg daily at bedtime for mood stabilization, trazodone will be discontinued at this time. Will continue BuSpar 5 mg twice a day for anxiety and continue duloxetine 60 mg daily at bedtime for mood. -Will likely start Antabuse tomorrow as it has helped patient remains sober from alcohol in the past and patient is willing to take medication. -When necessary Ativan for agitation/aggression. -Discussed with patient the risks and need to stay sober from alcohol and other illicit drugs and to avoid situations where she may feel tempted to relapse on drinking. Patient agrees verbally. -SW on board for discharge planning.
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
[2019-05-07] MEDS: ACETAMINOPHEN TAB 325 MG TAB PO PRN (15:28)
[2019-05-07] MEDS: DULoxetine HCL 60 MG CAPSULE.DR PO SCH (20:16)
[2019-05-07] MEDS: QUEtiapine 50 MG TAB PO SCH (20:16)
[2019-05-08] MEDS: IBUPROFEN 600 MG TAB PO PRN ×2 (02:33→11:04)
[2019-05-08 07:10] VITALS: TEMP 98.1
[2019-05-08] MEDS: busPIRone HCl 5 MG TAB PO SCH (08:06)
[2019-05-08] MEDS: LORazepam 1 MG TAB PO PRN ×2 (08:08→16:20)
[2019-05-08] MEDS: ACETAMINOPHEN TAB 325 MG TAB PO PRN ×2 (08:08→16:20)
--- NOTE | 2019-05-08 09:45 | P.PN ---
Progress Note - Text Progress Note Date: 05/08/19 Interval History: Patient was seen in the hallways today and was calm cooperative and agreeable to speak to hand sign writer in office. Patient spoke of having persistent pain in her left arm where she has a fracture and was holding her cast. She states that she's been taking Advil and Tylenol to help with the pain and is currently waiting on further recommendations from orthopedic surgery. Patient states that her mood is gradually improving and denies any racing thoughts increase in energy and goa l-directed activity. She states that she slept well last night sleeping approximately 6 hours. She states that she's been attempting to go to groups and participate however has been limited due to her pain. Patient requests an increase in her BuSpar for anxiety. At this time patient denies any suicidal or homical ideations, intent or plan. Patient denies any auditory, visual hallucinations and denies any paranoia or delusions. Patient denies any side effects from the medications and has been compliant with meds. Patient remains committed to staying sober from alcohol and spoke of her support system from her brother and her boyfriend and her desire to continue in AA meetings. Mental Status Exam: General Appearance: Patient appears to be stated age is alert, pleasant, and cooperative. Behavior: Patient is calmly seated without any agitated behavior. Speech: Patient's speech is fluent and nonpressured. Mood/Affect: Patient reports their mood is improving, affect is congruent and sh allow. Suicidality/Homicidality: Patient denies having any suicidal or homicidal ideation intent or plan. Perceptions: Patient denies any auditory or visual hallucinations. Though content/process: There is no evidence of any delusional thought content and thought process is linear and goal-directed. Memory and concentration: AOX3, grossly intact for the purposes of this session Judgment and insight: Improving Assessment Bipolar disorder, currently depressed Plan: -Patient continues to meet criteria for inpatient psychiatric admission for symptom stabilization and safety. -Medications -will continue on Seroquel 150 mg at night, Cymbalta 60 mg at night. Will increase BuSpar to 10 mg twice a day. -When necessary Ativan for agitation/aggression. -Patient continues to demonstrate future orientation and good support and desire to abstain from alcohol. She declines wanting to go to rehab at this time and would like to go to AA meetings. -CT of left arm completed yesterday demonstrated a fracture, please see CT results. Awaiting further orthopedic recommendations. -SW on board for discharge planning. Likely discharge tomorrow.
[2019-05-08] MEDS: QUEtiapine 50 MG TAB PO SCH (20:27)
[2019-05-08] MEDS: busPIRone HCl 10 MG TAB PO SCH (20:27)
[2019-05-08] MEDS: DULoxetine HCL 60 MG CAPSULE.DR PO SCH (20:27)
[2019-05-09] MEDS: IBUPROFEN 600 MG TAB PO PRN (06:27)
[2019-05-09 06:28] VITALS: BP 118/63; PULSE 76; RESP 16
[2019-05-09] MEDS: busPIRone HCl 10 MG TAB PO SCH (08:15)
[2019-05-09] MEDS: LORazepam 1 MG TAB PO PRN (08:15)
--- NOTE | 2019-05-09 10:41 | P.DS ---
Providers Date of admission: 05/05/19 17:22 Expected date of discharge: 05/09/19 Attending physician: Mk Stephens MD Consults: 05/05/19 17:28 Consult Physician Routine Consulting Provider: Raza Fortune Consult Reason/Comments: H&P and medical Do you want consulting provider notified?: Yes 05/06/19 16:10 Consult Physician Routine Consulting Provider: Dino Clark Consult Reason/Comments: fx left wrist Do you want consulting provider notified?: Yes Primary care physician: Rahat Fletcher - Discharge Diagnosis(es) (1) Bipolar 1 disorder, depressed, severe Current Visit: Yes Status: Acute Priority: High (2) Anxiety Current Visit: Yes Status: Acute Priority: Medium (3) Alcohol abuse Current Visit: Yes Status: Acute Priority: High Hospital Course: Summary of admission note: Patient is a 33-year-old female who presented to the hospital after having an increase in depressive symptoms and suicidal ideations with a plan and increase in alcohol use after being sober for 2 years. Patient stated that she was thinking about jumping off a bridge to kill herself and drinking a whole bottle of wine. She stated that she called her brother who talked her out of it and called 911 to take her into the hospital. She stated that she was been drinking more heavily approximately a sixpack of beer every 1-2 days. States that she has grown up feeling guilty and having a negative self image and self- esteem due to her mother's comments and upbringing. She claims that she has been compliant with her medications however that alcohol was making her feel feel worse. She claims that she was attending AA meetings however has stopped which was helping her stay sober for over 2 years. She denied any auditory or visual hallucinations and did not have any flight of ideas racing thoughts or increasing goal-directed behaviors at the time of admission.[]. Hospital course: Upon admission to the unit patient was initially calm, directable and appeared to have a depressed affect and socially withdrawn. Patient got along well with other patients on the unit and followed unit protocol. Patient was compliant with his medications and denied any side effects throughout his hospital course. Patient was started on Cymbalta 60 mg daily at bedtime for mood, which remained unchanged during hospital course. Patient was also started on trazodone 50 mg daily at bedtime for mood and sleep and was titrated off this medication. Patient was restarted back on Seroquel 100 mg nightly for mood stabilization and was titrated up to 150 mg daily at bedtime. Patient was also started on BuSpar 5 mg twice a day for anxiety and was increased to 10 mg twice a day. Patient spoke of her stressors and engaged in therapy both group and individual. Patient was seen by medical team for history and physical examination and was also seen by orthopedics for a consult regarding her previous left arm fracture which was in a cast. Patient was continued on ibuprofen and Tylenol during her inpatient course for edema in her arm. Patient underwent a CT of her arm which found significant fractures and was recommended by orthopedics to follow-up with her outpatient appointment with Dr. Goss after discharge. Throughout the course of the hospitalization patient gradually improved with regards to mood and became future oriented. On the day of discharge patient denied any suicidal or homicidal ideations intent or plan denied any auditory or visual hallucinations. Patient denied any paranoia and did not endorse any delusions. With regards to patient's significant alcohol abuse, patient states that she is going to cut back and try to remain sober and will be attending AA meetings every day in the community. She states that she has a sponsor at this time and supportive friends will help her sobriety. Patient was offered rehab resources however patient declined them. Patient will also follow-up with her primary care physician and would like to comments Antabuse in the near future. [Patient was also counseled on his medications and need for regular compliance and was encouraged to follow-up with her outpatient appointment for mental health and also for primary care.] Mental Status Exam: General Appearance: [Patient appears to be stated age is alert, pleasant, and cooperative. Patient is in no acute distress and has fair hygiene and grooming] Behavior: [Patient is calmly seated without any agitated behavior.] Speech: Patient's speech is fluent and nonpressured. Mood/Affect: Patient reports their mood is fine, affect is congruent and euthymic. Suicidality/Homicidality: Patient denies having any suicidal or homicidal ideation intent or plan. Perceptions: Patient denies any auditory or visual hallucinations. Though content/process: There is no evidence of any delusional thought content and thought process is linear and goal-directed. Memory and concentration: AOX3, grossly intact for the purposes of this session. Can spell "WORLD" backwards correctly. Judgment and insight: fair Impression: Bipolar disorder, depressed Anxiety disorder unspecified Alcohol use disorder, moderate-severe Plan: -Continue with discharge today as patient has improved and stabilized psychiatrically and no longer remains an imminent threat to herself and/or others. -Continue medications: Seroquel 150 mg at bedtime for mood stabilization, duloxetine 60 mg daily at bedtime for mood, BuSpar 10 mg twice a day for anxiety -Patient was counseled on the need for medication compliance and appropriate follow-up with mental health and also primary care providers for medical issues. Patient verbalized understanding and agreed. -Patient was encouraged to follow-up with her outpatient orthopedics appointment with Dr. Goss for further evaluation and management of her left arm fracture. Patient was encouraged to keep her arm the cast with a sling and to remain taking ibuprofen when necessary for pain. -Social work to give patient resources on substance use and rehabilitation. Patient would like to continue doing daily AA meetings and will speak to her primary care physician in the near future about starting Antabuse. -Patient counseled on abstaining from recreational drugs and marijuana and alcohol. Patient verbally agreed and understood. -Patient was instructed to return to the hospital or seek immediate medical care if their psychiatric or medical systems do worsen or reoccur. Abnormal Labs 05/06/19 09:15 ALT <6 L Cholesterol 256 H LDL Cholesterol, Calc 156 H HDL Cholesterol 70 H Allergies Allergy/AdvReac Type Severity Reaction Status Date / Time No Known Allergies Allergy Verified 05/05/19 07:18 Laboratory Results WBC 4.3 k/uL (3.8-10.6) 05/06/19 09:15 RBC 4.51 m/uL (3.80-5.40) 05/06/19 09:15 Hgb 13.5 gm/dL (11.4-16.0) 05/06/19 09:15 Hct 42.1 % (34.0-46.0) 05/06/19 09:15 MCV 93.2 fL (80.0-100.0) 05/06/19 09:15 MCH 29.9 pg (25.0-35.0) 05/06/19 09:15 MCHC 32.1 g/dL (31.0-37.0) 05/06/19 09:15 RDW 13.5 % (11.5-15.5) 05/06/19 09:15 Plt Count 408 k/uL (150-450) 05/06/19 09:15 Neutrophils % 53 % 05/06/19 09:15 Lymphocytes % 35 % 05/06/19 09:15 Monocytes % 7 % 05/06/19 09:15 Eosinophils % 2 % 05/06/19 09:15 Basophils % 1 % 05/06/19 09:15 Neutrophils # 2.2 k/uL (1.3-7.7) 05/06/19 09:15 Lymphocytes # 1.5 k/uL (1.0-4.8) 05/06/19 09:15 Monocytes # 0.3 k/uL (0-1.0) 05/06/19 09:15 Eosinophils # 0.1 k/uL (0-0.7) 05/06/19 09:15 Basophils # 0.0 k/uL (0-0.2) 05/06/19 09:15 Sodium 140 mmol/L (137-145) 05/06/19 09:15 Potassium 4.8 mmol/L (3.5-5.1) 05/06/19 09:15 Chloride 102 mmol/L (98-107) 05/06/19 09:15 Carbon Dioxide 27 mmol/L (22-30) 05/06/19 09:15 Anion Gap 11 mmol/L 05/06/19 09:15 BUN 16 mg/dL (7-17) 05/06/19 09:15 Creatinine 0.94 mg/dL (0.52-1.04) 05/06/19 09:15 Est GFR (CKD-EPI)AfAm >90 (>60 ml/min/1.73 sqM) 05/06/19 09:15 Est GFR (CKD-EPI)NonAf 80 (>60 ml/min/1.73 sqM) 05/06/19 09:15 Glucose 76 mg/dL (74-99) 05/06/19 09:[address] Glu mg/dL 100 05/06/19 09:15 Hemoglobin A1c 5.1 % (4.0-6.0) 05/06/19 09:15 Calcium 9.8 mg/dL (8.4-10.2) 05/06/19 09:15 Total Bilirubin 0.6 mg/dL (0.2-1.3) 05/06/19 09:15 AST 19 U/L (14-36) 05/06/19 09:15 ALT <6 U/L (9-52) L 05/06/19 09:15 Alkaline Phosphatase 56 U/L (38-126) 05/06/19 09:15 Total Protein 8.2 g/dL (6.3-8.2) 05/06/19 09:15 Albumin 4.7 g/dL (3.5-5.0) 05/06/19 09:15 Triglycerides 149 mg/dL (<150) 05/06/19 09:15 Cholesterol 256 mg/dL (<200) H 05/06/19 09:15 LDL Cholesterol, Calc 156 mg/dL (0-99) H 05/06/19 09:15 HDL Cholesterol 70 mg/dL (40-60) H 05/06/19 09:15 TSH 1.290 mIU/L (0.465-4.680) 05/06/19 09:15 Urine Color Colorless 05/05/19 03:05 Urine Appearance Clear (Clear) 05/05/19 03:05 Urine pH 5.0 (5.0-8.0) 05/05/19 03:05 Ur Specific [place] 1.002 (1.001-1.035) 05/05/19 03:05 Urine Protein Negative (Negative) 05/05/19 03:05 Urine Glucose (UA) Negative (Negative) 05/05/19 03:05 Urine Ketones Negative (Negative) 05/05/19 03:05 Urine Blood Negative (Negative) 05/05/19 03:05 Urine Nitrite Negative (Negative) 05/05/19 03:05 Urine Bilirubin Negative (Negative) 05/05/19 03:05 Urine Urobilinogen <2.0 mg/dL (<2.0) 05/05/19 03:05 Ur Leukocyte Esterase Negative (Negative) 05/05/19 03:05 Urine HCG, Qual Not Detected (Not Detectd) 05/05/19 03:05 Urine Opiates Screen Not Detected (NotDetected) 05/05/19 03:05 Ur Oxycodone Screen Not Detected (NotDetected) 05/05/19 03:05 Urine Methadone Screen Not Detected (NotDetected) 05/05/19 03:05 Ur Propoxyphene Screen Not Detected (NotDetected) 05/05/19 03:05 Ur Barbiturates Screen Not Detected (NotDetected) 05/05/19 03:05 U Tricyclic Antidepress Not Detected (NotDetected) 05/05/19 03:05 Ur Phencyclidine Scrn Not Detected (NotDetected) 05/05/19 03:05 Ur Amphetamines Screen Not Detected (NotDetected) 05/05/19 03:05 U Methamphetamines Scrn Not Detected (NotDetected) 05/05/19 03:05 U Benzodiazepines Scrn Not Detected (NotDetected) 05/05/19 03:05 Urine Cocaine Screen Not Detected (NotDetected) 05/05/19 03:05 U Marijuana (THC) Screen Not Detected (NotDetected) 05/05/19 03:05 Vital Signs Temp 98.1 F 05/09/19 06:27 Pulse 76 05/09/19 06:27 Resp 16 05/09/19 06:27 BP 118/63 05/09/19 06:27 Pulse Ox 97 05/05/19 18:17 Patient Condition at Discharge: Stable Plan - Discharge Summary New Discharge Prescriptions: New busPIRone HCl [Buspar] 10 mg PO BID 14 Days #30 tab Acetaminophen Tab [Tylenol] 650 mg PO Q4HR PRN tab PRN Reason: Pain/Discomfort Continue Ibuprofen [Motrin] 600 mg PO Q8HR PRN #20 tab PRN Reason: Pain DULoxetine HCL [Cymbalta] 60 mg PO HS #14 capsule. Changed QUEtiapine [SEROquel] 150 mg PO HS 14 Days #21 tab Discontinued traZODone HCL 50 mg PO HS Lurasidone [Latuda] 20 mg PO HS LORazepam [Ativan] 1 mg PO TID PRN PRN Reason: Anxiety Discharge Medication List Ibuprofen [Motrin] 600 mg PO Q8HR PRN #20 tab 04/29/19 [Rx] Acetaminophen Tab [Tylenol] 650 mg PO Q4HR PRN tab 05/09/19 [Rx] DULoxetine HCL [Cymbalta] 60 mg PO HS #14 capsule. 05/09/19 [Rx] QUEtiapine [SEROquel] 150 mg PO HS 14 Days #21 tab 05/09/19 [Rx] busPIRone HCl [Buspar] 10 mg PO BID 14 Days #30 tab 05/09/19 [Rx] Follow up Appointment(s)/Referral(s): intake,intake [Other] - 1 Week (Pt is to call and talk with Cony at [facility] prior to appt. Call after discharge and speak with Cony. Paperwork is being mailed to pt home, and info needs to given, filled out prior to time of appt. Appt is 05-20-19 at 1:[address] Ramos. Call Cony at [phone], ext [phone]) [facility] [Outside] - 05/14/19 8:30 am Uday Ramos DO [Medical Doctor] - 1 Week Rahat Fletcher DO [Primary Care Provider] - 1-2 days Patient Instructions/Handouts: Mood Disorders (DC), Depression (ED), Suicide Prevention (DC) Activity/Diet/Wound Care/Special Instructions: Maintain splint Ice and elevate Follow-up with Dr. Ramos for further orthopedic recommendations Activity and diet as tolerated. No guns or weapons in the home. Refrain from drugs or alcohol not prescribed by your physician. Take all your medications as prescribed, and attend all follow up appointments as scheduled. If in need of refills for medications, please go to your out patient psychiatric provider, or your primary care physician. If in crisis, call or please go to the nearest ER for evaluation. Discharge Disposition: HOME SELF-CARE
== END 2019-05-09 12:26 | disposition home or self-care (01) | DRG 885 ==
LOC: EC 01:26 → 3MHU 17:22
PROVIDERS: ADMIT Psychiatry & Neurology Psychiatry; ATTEND Psychiatry & Neurology Psychiatry
DX: F31.4 Bipolar disorder, current episode depressed, severe, without psychotic features (principal); R45.851 Suicidal ideations; F41.9 Anxiety disorder, unspecified; F10.20 Alcohol dependence, uncomplicated; F51.04 Psychophysiologic insomnia; S52.572D Other intraarticular fracture of lower end of left radius, subsequent encounter for closed fracture with routine healing; S52.612D Displaced fracture of left ulna styloid process, subsequent encounter for closed fracture with routine healing; Z79.1 Long term (current) use of non-steroidal anti-inflammatories (NSAID); Z79.899 Other long term (current) drug therapy; Z85.41 Personal history of malignant neoplasm of cervix uteri; Z85.828 Personal history of other malignant neoplasm of skin; Z91.5 Personal history of self-harm; Z98.890 Other specified postprocedural states; Z81.1 Family history of alcohol abuse and dependence; Z83.79 Family history of other diseases of the digestive system
CPT/HCPCS: 80053; 80061; 80306; 81003; 81025; 82075; 83036; 84443; 85025; 96372; 99285

== ENCOUNTER 2019-05-11 23:40 | Emergency (ER) | payer OTHER ==
[2019-05-11 23:48] VITALS: RESP 18
--- NOTE | 2019-05-11 23:54 | ED ---
Psych HPI - General Chief Complaint: Psychiatric Symptoms Stated Complaint: Suicidal ideation Time Seen by Provider: 05/11/19 23:43 Source: patient, EMS, RN notes reviewed, old records reviewed Mode of arrival: EMS - History of Present Illness Initial Comments: This is a 33-year-old female the ER for evaluation, patient resents today for evaluation of psychiatric illness, patient unable to give history secondary to noncooperation. Patient does have history of alcoholism in for low this hospital for psychiatric illness. Per patient's family patient treated herself today. Patient is significantly intoxicated. Patient also has recent left wrist fracture which she did remove casting material MD Complaint: suicidal ideation, feels depressed -: unknown Associated Psychiatric Symptoms: depression, suicidal ideation History of same: Yes Quality: intermittent Improves With: none Worsens With: none Context: recent alcohol abuse Associated Symptoms: denies other symptoms Treatments Prior to Arrival: placed on mental health hold If Self Harm: admits thoughts of self harm, has plan, has acted on plan - Related Data Previous Rx's Medication Instructions Recorded Ibuprofen [Motrin] 600 mg PO Q8HR PRN #20 tab 04/29/19 Acetaminophen Tab [Tylenol] 650 mg PO Q4HR PRN tab 05/09/19 DULoxetine HCL [Cymbalta] 60 mg PO HS #14 capsule. 05/09/19 QUEtiapine [SEROquel] 150 mg PO HS 14 Days #21 tab 05/09/19 busPIRone HCl [Buspar] 10 mg PO BID 14 Days #30 tab 05/09/19 Allergies Allergy/AdvReac Type Severity Reaction Status Date / Time No Known Allergies Allergy Verified 05/14/19 09:44 Review of Systems ROS Statement: Those systems with pertinent positive or pertinent negative responses have been documented in the HPI. ROS Other: All systems not noted in ROS Statement are negative. Past Medical History Past Medical History: Cancer Additional Past Medical History / Comment(s): alcoholism, insomnia, past cervical cancer History of Any Multi-Drug Resistant Organisms: None Reported Past Surgical History: Uterine Ablation Additional Past Surgical History / Comment(s): rhinoplasty, cervical cancer currently and skin cancer lymph node removed in the 6th grade Past Anesthesia/Blood Transfusion Reactions: No Reported Reaction Past Psychological History: Anxiety, Bipolar, Depression Smoking Status: Never smoker Past Alcohol Use History: Occasional Past Drug Use History: None Reported - Past Family History Father Additional Family Medical History / Comment(s): Father is age 57. Alcoholism, diverticulosis Mother Additional Family Medical History / Comment(s): Mother is alive at age 65 with no major medical problems. Brother(s) Additional Family Medical History / Comment(s): Patient has 2 brothers with no major medical problems. She does not have any sisters. She does not have any children. General Exam General appearance: alert, appears intoxicated Head exam: Present: atraumatic, normocephalic, normal inspection Eye exam: Present: normal appearance, PERRL, EOMI. Absent: scleral icterus, conjunctival injection, periorbital swelling ENT exam: Present: normal exam, mucous membranes moist Neck exam: Present: normal inspection. Absent: tenderness, meningismus, lymphadenopathy Respiratory exam: Present: normal lung sounds bilaterally. Absent: respiratory distress, wheezes, rales, rhonchi, stridor Cardiovascular Exam: Present: regular rate, normal rhythm, normal heart sounds. Absent: systolic murmur, diastolic murmur, rubs, gallop, clicks GI/Abdominal exam: Present: soft, normal bowel sounds. Absent: distended, ten derness, guarding, rebound, rigid Extremities exam: Present: normal inspection, full ROM, normal capillary refill. Absent: tenderness, pedal edema, joint swelling, calf tenderness Back exam: Present: normal inspection Neurological exam: Present: alert, oriented X3, CN II-XII intact Psychiatric exam: Present: normal affect, normal mood Skin exam: Present: warm, dry, intact, normal color. Absent: rash Course Vital Signs 05/11/19 05/12/19 23:44 05:52 Temperature 98.7 F 98 F Pulse Rate 65 80 Respiratory 18 18 Rate Blood Pressure 113/81 109/78 O2 Sat by Pulse 98 98 Oximetry - Reevaluation(s) Reevaluation #1: 05/12/19 01:54 Medical record reviewed Medical Decision Making - Medical Decision Making 33 female the ER for evaluation presented today for evaluation of psychiatric illness, patient is intoxicated, seen and evaluated with psychiatry once sober, patient deemed safe for discharge Disposition Clinical Impression: Alcohol abuse, Bipolar disorder Disposition: HOME SELF-CARE Condition: Good Instructions (If sedation given, give patient instructions): Depression (ED) Is patient prescribed a controlled substance at d/c from ED?: No Referrals: Rahat Fletcher DO [Primary Care Provider] - 1-2 days
--- NOTE | 2019-05-12 02:44 | XR ---
EXAM: XR Left Wrist Complete, 3 or More Views CLINICAL HISTORY: ITS.REASON XR Reason: Pain TECHNIQUE: Frontal, lateral and oblique views of the left wrist. COMPARISON: 05/07/19 IMPRESSION: Redemonstration of comminuted distal radial fracture with intra-articular component and ulnar styloid fracture.
[2019-05-12] MEDS ORDERED: ACETAMINOPHEN TAB 325 MG TAB PO STA (04:15)
[2019-05-12 05:53] VITALS: BP 109/78; PULSE 80; TEMP 98
== END 2019-05-12 05:54 | disposition home or self-care (01) ==
LOC: EC 23:40
DX: F10.10 Alcohol abuse, uncomplicated (principal); F31.9 Bipolar disorder, unspecified; Z85.41 Personal history of malignant neoplasm of cervix uteri; Z85.828 Personal history of other malignant neoplasm of skin
CPT/HCPCS: 82075; 99285

== ENCOUNTER 2019-05-15 09:58 | Day surgery (SDC) | payer OTHER ==
[2019-05-14 09:50] VITALS: BMI 22.3
--- NOTE | 2019-05-14 17:32 | HP ---
HISTORY AND PHYSICAL REASON FOR ADMISSION: Surgery 05/15/19 Yaritza Lui is a 33-year-old patient seen with a displaced comminuted distal radius fracture left wrist. I recommended open reduction, internal fixation. The procedure, risks, complications, benefits, recovery were discussed. She was agreeable. Consent was obtained. PAST MEDICAL HISTORY: Her past medical history is depression. PAST SURGICAL HISTORY: Sinus surgery. MEDICATIONS: Buspirone, Cymbalta, Seroquel. ALLERGIES: None reported. SOCIAL HISTORY: She is unemployed. PHYSICAL EXAMINATION: Physical evaluation left wrist: There is diffuse swelling and ecchymosis about the distal radius area. There is tenderness about the distal radius area. She is limited in regards range of motion of the fingers with minimal pain. She has good perfusion sensation distally. RADIOGRAPHS: Radiographs of the left wrist revealed a significantly comminuted displaced fracture of the distal radius. IMPRESSION: Comminuted displaced left distal radius fracture. PLAN: Open reduction, internal fixation, left distal radius. Surgery scheduled for 05/15/19. MMODL / IJN: [id number] /
[~2019-05-15 09:58] MED LIST: DEXAMETHASONE SOD PHOSPHATE 10 MG/ML 1 ML VIAL IV ONE; HYDROmorphone 0.5 MG/0.5 ML SYRINGE IVP PRN; LACTATED RINGERS 1,000 ML IV SCH; LIDOCAINE 1% 20 ML VIAL (10MG/ML) FOR IV START INTRADERMA PRN; MIDAZOLAM 2 MG/2 ML VIAL IV PRN; ONDANSETRON 4 MG/2 ML VIAL IVP ONE; SCOPOLAMINE 1.5MG/72HR PATCH TRANSDERM ONE
--- NOTE | 2019-05-15 11:44 | P.ANPRN ---
Procedure Note - Anesthesia - Nerve Block Performed Left Supraclavicular Single Time Out Performed: Yes Date of Procedure: 05/15/19 Procedure Start Time: 11:04 Procedure Stop Time: 11:10 Location of Patient Procedure: PreOp Indication: Acute Post-Operative Pain, Requested by physician Sedation Type: Sedate with meaningful contact maintained Preparation: Sterile Prep Position: Supine Needle Types: Pajunk Needle Gauge: 21 Technique: Ultrasound (ropi .5% 25cc plus dexamethasone 4mg) Blood Aspirated: No Pain Paresthesia on Injection Noted: No Resistance on Injection: Normal Events: Uneventful and Well Tolerated
[2019-05-15] MEDS ORDERED: DEXAMETHASONE SOD PHOSPHATE 4 MG/ML 1 ML VIAL ONE (12:20)
[2019-05-15] MEDS ORDERED: ROPIVACAINE 5 MG/ML 30 ML VIAL ONE (12:20)
[2019-05-15] MEDS ORDERED: fentaNYL (PF) 50 MCG/ML 2 ML AMP ONE (12:20)
[2019-05-15] MEDS ORDERED: SUCCINYLCHOLINE CHLORIDE 100 MG/5 ML SYR IV ONE (12:20)
[2019-05-15] MEDS ORDERED: LIDOCAINE 1% INJ 10MG/ML (20 ML MDV) ONE (12:20)
[2019-05-15] MEDS ORDERED: MIDAZOLAM 2 MG/2 ML VIAL ONE (12:20)
[2019-05-15] MEDS ORDERED: PROPOFOL 10 MG/ML 20 ML VIAL IV ONE (12:20)
[2019-05-15] MEDS ORDERED: LACTATED RINGERS 1,000 ML IV ONE (12:43)
--- NOTE | 2019-05-15 14:01 | P.OP ---
Date of Procedure: 05/15/19 Preoperative Diagnosis: Comminuted displaced left distal radius fracture Postoperative Diagnosis: Comminuted displaced left distal radius fracture Procedure(s) Performed: Open reduction and internal fixation left distal radius fracture Implants: Synthes volar wrist plate with appropriate length distal pegs and proximal screws Anesthesia: GETA, regional (Supraclavicular block) Surgeon: Jens Youssef Black Off Worker #1: Alpesh Hoskins Estimated Blood Loss (ml): 10 Pathology: none sent Condition: stable Disposition: PACU Indications for Procedure: 33-year-old patient seen with a comminuted displaced left distal radius fract ure. I recommended open reduction and internal fixation. Patient was agreeable and consent was obtained. Operative Findings: See description of procedure Description of Procedure: The patient underwent a supraclavicular block by the department of anesthesia for postoperative pain management. The patient was then taken to the operative suite. The patient underwent a general anesthetic by the department of anesthesia. The patient received preoperative IV antibiotics. A well-padded tourniquet was placed proximal left upper extremity. The left upper extremity was prepped and draped in the normal sterile orthopedic fashion. The extremity was elevated and tourniquet was insufflated to 250. A standard still radial volar incision was made sharply through skin. Blunt dissection carefully taken down to the area of the fracture. The fracture was identified. Periosteal elevation was utilized to better define this. There was some early healing of this two-week old comminuted fracture. I debrided some of the early callus loose to mobilize the fracture. With the assistance of German MATHEW has able to mobilize the fracture and a reasonable aligned position. I now confirmed adequate alignment on AP and lateral intraoperative imaging. I now chose a appropriate distal volar wrist plate. That was placed in position and a single proximal screw was now placed to secure the plate. C-arm was brought in confirming adequate position of the plate. German MATHEW health fracture adequately aligned as I drilled holes distally for insertion of peg screws. I now introduced appropriate length locking peg screws distally. I was only able to insert 3 as the fracture was fairly comminuted any other peg holes did not have adequate bone stock for insertion of a screw or peg. I also drilled one hole introduced a second proximal screw with good bite and purchase. I now evaluated the entire construct under AP and lateral intraoperative imaging. I noted adequate alignment of both the fracture and the internal fixation. Under motion fluoroscopy I now noted with range of motion of the wrist the fracture was stable. Spot films were obtained intraoperatively to document this. The C- arm was pulled back. The wound was irrigated with antibiotic irrigant. The skin margins were approximated nylon suture. I applied sterile dressings. The tourniquet was released and immediate capillary refill of all digits noted. A volar splint was now applied. The patient was now awakened transferred to a bed and recovery stable condition. Alpesh MATHEW assisted with this procedure.
[2019-05-15 14:07] VITALS: TEMP 97.4
[2019-05-15 14:08] VITALS: RESP 18
--- NOTE | 2019-05-15 14:40 | FL ---
EXAMINATION TYPE: FL guidance operating room, XR wrist limited LT DATE OF EXAM: 05/15/2019 CLINICAL HISTORY: Left wrist fracture. TECHNIQUE: Fluoroscopy. Limited intraoperative views left wrist. COMPARISON: Left wrist x-ray from 3 days ago. FINDINGS: Fluoroscopic guidance was provided during open reduction internal fixation procedure perfo rmed by Dr. Youssef. A total of 28 seconds of fluoroscopic time was utilized during the procedure and 2 spot intraoperative images are acquired. Intraoperative images obtained show placement of palmar surface fixating plate through comminuted dis placed intra-articular fracture distal radial meta-epiphysis with improved alignment after reduction and fixation on intraoperative images obtained. IMPRESSION: As Above.
[2019-05-15 14:51] VITALS: BP 137/67; PULSE 78
== END 2019-05-15 15:06 | disposition home or self-care (01) ==
LOC: OR 09:58
PROVIDERS: ATTEND Orthopaedic Surgery
DX: S52.502A Unspecified fracture of the lower end of left radius, initial encounter for closed fracture (principal); X58.XXXA Exposure to other specified factors, initial encounter; F32.9 Major depressive disorder, single episode, unspecified; Z79.899 Other long term (current) drug therapy
CPT/HCPCS: 25608; 64413; 73100; 81025; C1713; J2250; J1100 ×2; J2405; J0690; J2001; J3010; J2795; J0330; J2704

== ENCOUNTER 2019-06-02 19:34 | Emergency (ER) | payer OTHER ==
[2019-06-02] MEDS ORDERED: LORazepam 1 MG TAB PO STA (20:20)
[2019-06-02 20:35] VITALS: TEMP 98
[2019-06-02 21:41] LABS: Amphetamine Screen,Urine Not Detected (NotDetected); Barbiturate Screen,Urine Not Detected (NotDetected); Benzodiazepines Screen,Urine Not Detected (NotDetected); Cocaine Screen,Urine Not Detected (NotDetected); Methadone Screen, Urine Not Detected (NotDetected); Opiate Screen,Urine Not Detected (NotDetected); Oxycodone Screen, Urine Not Detected (NotDetected); Phencyclidine Screen,Urine Not Detected (NotDetected); Tricyclic Antidepressant,Urine Not Detected (NotDetected); Urn Cannabinoid Scrn Not Detected (NotDetected)
--- NOTE | 2019-06-02 22:12 | ED ---
Psych HPI - General Source: patient Mode of arrival: ambulatory <Jessi Bhakta - Last Filed: 06/02/19 22:10> <Rui Conn - Last Filed: 06/04/19 08:14> - General Chief Complaint: Psychiatric Symptoms Stated Complaint: Mental Health Time Seen by Provider: 06/02/19 20:17 - History of Present Illness Initial Comments: 33-year-old female patient with past medical history significant for bipolar disorder presents to the emergency department today for evaluation of suicidal ideation and depression. Patient states that she has been feeling increasingly depressed over the last 8 hours. Patient states she is not having frequent suic idal thoughts. She has no specific plan to take her life. Patient also admits to being an alcoholic and states she did have several drinks this morning. Patient feels she may be going through alcohol withdrawal. Patient denies any current wounds or injuries. States that she has attempted suicide in the past. States she does have an appointment next week with her counselor. Patient states she is taking her psychiatric medications as directed. Denies any hallucinations. Patient denies any recent rash, fever, chills, shortness breath, chest pain, abdominal pain, nausea, vomiting, diarrhea, constipation, back pain, numbness, tingling, dizziness, weakness, hematuria, dysuria, urinary urgency, urinary frequency, headache, visual changes, or any other complaints. (Jessi Bhakta) - Related Data Home Medications Medication Instructions Recorded Confirmed DULoxetine HCL [Cymbalta] 60 mg PO BID 06/02/19 06/02/19 QUEtiapine FUMARATE [SEROquel] 200 mg PO HS 06/02/19 06/02/19 Previous Rx's Medication Instructions Recorded busPIRone HCl [Buspar] 10 mg PO BID 14 Days #30 tab 05/09/19 Allergies Allergy/AdvReac Type Severity Reaction Status Date / Time No Known Allergies Allergy Verified 06/02/19 20:09 Review of Systems ROS Other: All systems not noted in ROS Statement are negative. <Jessi Bhakta - Last Filed: 06/02/19 22:10> ROS Other: All systems not noted in ROS Statement are negative. <Rui Conn - Last Filed: 06/04/19 08:14> ROS Statement: Those systems with pertinent positive or pertinent negative responses have been documented in the HPI. Past Medical History Past Medical History: Cancer Additional Past Medical History / Comment(s): alcoholism, insomnia, past cervical cancer History of Any Multi-Drug Resistant Organisms: None Reported Past Surgical History: Orthopedic Surgery, Uterine Ablation Additional Past Surgical History / Comment(s): rhinoplasty, cervical cancer currently and skin cancer lymph node removed in the 6th grade, left wrist Past Anesthesia/Blood Transfusion Reactions: No Reported Reaction Past Psychological History: Anxiety, Bipolar, Depression Smoking Status: Never smoker Past Alcohol Use History: Occasional Past Drug Use History: None Reported - Past Family History Father Additional Family Medical History / Comment(s): Father is age 57. Alcoholism, d iverticulosis Mother Additional Family Medical History / Comment(s): Mother is alive at age 65 with no major medical problems. Brother(s) Additional Family Medical History / Comment(s): Patient has 2 brothers with no major medical problems. She does not have any sisters. She does not have any children. <Jessi Bhakta M - Last Filed: 06/02/19 22:10> General Exam Limitations: no limitations General appearance: alert, in no apparent distress, other (This is a well- developed, well-nourished adult female patient in no acute distress. Vital signs upon presentation are temperature 98.7F, pulse 1:15, respirations 18, blood pressure 121/90, pulse ox 96% on room air.) Eye exam: Present: normal appearance, PERRL, EOMI. Absent: scleral icterus, conjunctival injection, periorbital swelling ENT exam: Present: normal exam, normal oropharynx, mucous membranes moist Cardiovascular Exam: Present: regular rate, normal rhythm, normal heart sounds. Absent: systolic murmur, diastolic murmur, rubs, gallop, clicks GI/Abdominal exam: Present: soft, normal bowel sounds. Absent: distended, tenderness, guarding, rebound, rigid Neurological exam: Present: alert, oriented X3, CN II-XII intact Psychiatric exam: Present: normal affect, depressed, suicidal ideation. Absent: homicidal ideation Skin exam: Present: warm, dry, intact, normal color. Absent: rash <Jessi Bhakta M - Last Filed: 06/02/19 22:10> Course Vital Signs 06/02/19 06/02/19 06/03/19 19:38 20:33 09:16 Temperature 98.7 F 98 F Pulse Rate 115 H 120 H 109 H Respiratory 18 18 16 Rate Blood Pressure 121/90 119/95 119/85 O2 Sat by Pulse 96 94 L 96 Oximetry Medical Decision Making - Lab Data Result diagrams: 06/03/19 06:49 06/03/19 06:49 <Rui Conn - Last Filed: 06/04/19 08:14> - Medical Decision Making I saw this patient in conjunction with the physician geriatric assistant. I performed independent history and physical exam. Agree with case management. I saw the patient and filed the clinical certification. (Rui Conn) - Lab Data Lab Results 06/02/19 06/02/19 06/03/19 Range/Units 21:15 21:15 06:49 WBC 6.7 (3.8-10.6) k/uL RBC 4.45 (3.80-5.40) m/uL Hgb 13.3 (11.4-16.0) gm/dL Hct 39.9 (34.0-46.0) % MCV 89.6 (80.0-100.0) fL MCH 29.9 (25.0-35.0) pg MCHC 33.3 (31.0-37.0) g/dL RDW 13.1 (11.5-15.5) % Plt Count 364 (150-450) k/uL Neutrophils % 59 % Lymphocytes % 33 % Monocytes % 4 % Eosinophils % 2 % Basophils % 1 % Neutrophils # 4.0 (1.3-7.7) k/uL Lymphocytes # 2.3 (1.0-4.8) k/uL Monocytes # 0.3 (0-1.0) k/uL Eosinophils # 0.1 (0-0.7) k/uL Basophils # 0.0 (0-0.2) k/uL Sodium (137-145) mmol/L Potassium (3.5-5.1) mmol/L Chloride (98-107) mmol/L Carbon Dioxide (22-30) mmol/L Anion Gap mmol/L BUN (7-17) mg/dL Creatinine (0.52-1.04) mg/dL Est GFR (CKD-EPI)AfAm (>60 ml/min/1.73 sqM) Est GFR (CKD-EPI)NonAf (>60 ml/min/1.73 sqM) Glucose (74-99) mg/dL Calcium (8.4-10.2) mg/dL Total Bilirubin (0.2-1.3) mg/dL AST (14-36) U/L ALT (9-52) U/L Alkaline Phosphatase (38-126) U/L Total Protein (6.3-8.2) g/dL Albumin (3.5-5.0) g/dL Urine HCG, Qual Not Detected (Not Detectd) Urine Opiates Screen Not Detected (NotDetected) Ur Oxycodone Screen Not Detected (NotDetected) Urine Methadone Screen Not Detected (NotDetected) Ur Propoxyphene Screen Not Detected (NotDetected) Ur Barbiturates Screen Not Detected (NotDetected) U Tricyclic Antidepress Not Detected (NotDetected) Ur Phencyclidine Scrn Not Detected (NotDetected) Ur Amphetamines Screen Not Detected (NotDetected) U Methamphetamines Scrn Not Detected (NotDetected) U Benzodiazepines Scrn Not Detected (NotDetected) Urine Cocaine Screen Not Detected (NotDetected) U Marijuana (THC) Screen Not Detected (NotDetected) 06/03/19 Range/Units 06:49 WBC (3.8-10.6) k/uL RBC (3.80-5.40) m/uL Hgb (11.4-16.0) gm/dL Hct (34.0-46.0) % MCV (80.0-100.0) fL MCH (25.0-35.0) pg MCHC (31.0-37.0) g/dL RDW (11.5-15.5) % Plt Count (150-450) k/uL Neutrophils % % Lymphocytes % % Monocytes % % Eosinophils % % Basophils % % Neutrophils # (1.3-7.7) k/uL Lymphocytes # (1.0-4.8) k/uL Monocytes # (0-1.0) k/uL Eosinophils # (0-0.7) k/uL Basophils # (0-0.2) k/uL Sodium 138 (137-145) mmol/L Potassium 3.6 (3.5-5.1) mmol/L Chloride 102 (98-107) mmol/L Carbon Dioxide 26 (22-30) mmol/L Anion Gap 10 mmol/L BUN 7 (7-17) mg/dL Creatinine 0.77 (0.52-1.04) mg/dL Est GFR (CKD-EPI)AfAm >90 (>60 ml/min/1.73 sqM) Est GFR (CKD-EPI)NonAf >90 (>60 ml/min/1.73 sqM) Glucose 89 (74-99) mg/dL Calcium 9.0 (8.4-10.2) mg/dL Total Bilirubin 0.5 (0.2-1.3) mg/dL AST 27 (14-36) U/L ALT 24 (9-52) U/L Alkaline Phosphatase 73 (38-126) U/L Total Protein 7.9 (6.3-8.2) g/dL Albumin 4.4 (3.5-5.0) g/dL Urine HCG, Qual (Not Detectd) Urine Opiates Screen (NotDetected) Ur Oxycodone Screen (NotDetected) Urine Methadone Screen (NotDetected) Ur Propoxyphene Screen (NotDetected) Ur Barbiturates Screen (NotDetected) U Tricyclic Antidepress (NotDetected) Ur Phencyclidine Scrn (NotDetected) Ur Amphetamines Screen (NotDetected) U Methamphetamines Scrn (NotDetected) U Benzodiazepines Scrn (NotDetected) Urine Cocaine Screen (NotDetected) U Marijuana (THC) Screen (NotDetected) Disposition <Jessi Bhakta - Last Filed: 06/02/19 22:10> Is patient prescribed a controlled substance at d/c from ED?: No - Out of Hospital Transfer - Req. Specs Out of Hospital Transfer - Requested Specifics: Psychiatric Non-ICU <Rui Conn - Last Filed: 06/04/19 08:14> Clinical Impression: Depression, Suicidal ideation Disposition: OTHER INSTITUTION NOT DEFINED Condition: Fair Referrals: Rahat Fletcher DO [Primary Care Provider] - 1-2 days
[2019-06-03] MEDS ORDERED: chlordiazePOXIDE 25 MG CAP PO STA (05:06)
[2019-06-03 07:03] LABS: Basophils % (A) 1 %; Eosinophils # (A) 0.1 k/uL (0-0.7); Eosinophils % (A) 2 %; HCT 39.9 % (34.0-46.0); HGB 13.3 gm/dL (11.4-16.0); Lymphocytes # (A) 2.3 k/uL (1.0-4.8); Lymphocytes % (A) 33 %; MCH 29.9 pg (25.0-35.0); MCHC 33.3 g/dL (31.0-37.0); MCV 89.6 fL (80.0-100.0); Mean Platelet Volume 6.6; Monocytes # (A) 0.3 k/uL (0-1.0); Monocytes % (A) 4 %; Neutrophils % (A) 59 %; Platelet Count 364 k/uL (150-450); RBC 4.45 m/uL (3.80-5.40); RDW 13.1 % (11.5-15.5); WBC 6.7 k/uL (3.8-10.6)
[2019-06-03 07:15] LABS: ALT 24 U/L (9-52); AST 27 U/L (14-36); African American GFR (CKD) >90 (>60 ml/min/1.73 sqM); Albumin 4.4 g/dL (3.5-5.0); Alkaline Phosphatase 73 U/L (38-126); Anion Gap 10 mmol/L; Blood Urea Nitrogen 7 mg/dL (7-17); Carbon Dioxide 26 mmol/L (22-30); Chloride 102 mmol/L (98-107); Glucose 89 mg/dL (74-99); Potassium 3.6 mmol/L (3.5-5.1); Sodium 138 mmol/L (137-145); Total Bilirubin 0.5 mg/dL (0.2-1.3); Total Protein 7.9 g/dL (6.3-8.2)
[2019-06-03 09:17] VITALS: BP 119/85; PULSE 109; RESP 16
== END 2019-06-03 09:16 | disposition other institution (70) ==
LOC: EC 19:34
DX: R45.851 Suicidal ideations (principal); F31.30 Bipolar disorder, current episode depressed, mild or moderate severity, unspecified; F41.9 Anxiety disorder, unspecified; C53.9 Malignant neoplasm of cervix uteri, unspecified; Z79.899 Other long term (current) drug therapy; Z91.5 Personal history of self-harm; Z85.828 Personal history of other malignant neoplasm of skin
CPT/HCPCS: 36415; 80053; 80306; 81025; 82075; 85025; 99285

== ENCOUNTER 2019-06-16 15:37 | Observation (INO) | payer OTHER ==
[2019-06-16] MEDS ORDERED: SODIUM CHLORIDE 0.9% 1,000 ML IV ONE (16:23)
[2019-06-16 16:49] LABS: Basophils # (A) 0.1 k/uL (0-0.2); Basophils % (A) 1 %; Eosinophils # (A) 0.1 k/uL (0-0.7); Eosinophils % (A) 1 %; HCT 39.6 % (34.0-46.0); HGB 12.8 gm/dL (11.4-16.0); Lymphocytes % (A) 18 %; MCH 29.2 pg (25.0-35.0); MCHC 32.4 g/dL (31.0-37.0); MCV 90.1 fL (80.0-100.0); Mean Platelet Volume 6.6; Monocytes # (A) 0.4 k/uL (0-1.0); Monocytes % (A) 4 %; Neutrophils # (A) 8.6 k/uL (1.3-7.7); Neutrophils % (A) 76 %; Platelet Count 360 k/uL (150-450); RDW 13.4 % (11.5-15.5); WBC 11.4 k/uL (3.8-10.6)
[2019-06-16 16:54] LABS: Partial Thromboplastin Time 25.4 sec (22.0-30.0); Prothrombin Time 10.4 sec (9.0-12.0)
[2019-06-16 16:56] LABS: ALT 31 U/L (9-52); AST 116 U/L (14-36); African American GFR (CKD) >90 (>60 ml/min/1.73 sqM); Albumin 4.5 g/dL (3.5-5.0); Alkaline Phosphatase 74 U/L (38-126); Anion Gap 13 mmol/L; Blood Urea Nitrogen 14 mg/dL (7-17); Calcium 8.8 mg/dL (8.4-10.2); Carbon Dioxide 24 mmol/L (22-30); Chloride 99 mmol/L (98-107); Glucose 101 mg/dL (74-99); Sodium 136 mmol/L (137-145); Total Bilirubin 0.6 mg/dL (0.2-1.3); Total Protein 8.5 g/dL (6.3-8.2)
--- NOTE | 2019-06-16 16:59 | ED ---
General Adult HPI - General Chief complaint: Psychiatric Symptoms Stated complaint: off balance/hallucinations Time Seen by Provider: 06/16/19 15:54 Source: patient Mode of arrival: wheelchair - History of Present Illness Initial comments: 33-year-old female patient presents to the emergency department today for evaluation of altered mental status. Patient was recently admitted to [facility]. She did see her physician on Sunday and her psychiatric medications were changed. States that she was increase in dosage of her cervical to 600 mg and she was started on Cymbalta 60 mg twice a day. Patient does admit to taking Ativan last night and is very. Patient states when she woke up this was she got out of bed and felt a ground. Patient states that this is been happening throughout the day. Patient states she is very confused. Family members report that she doesn't seem to know what day it is complaining of hallucinations. Patient states that she feels confused and weak. She denies any recent head injury. Denies any chest pain, shortness of breath, abdominal pain, nausea, or vomiting. Denies chance of . Patient denies any recent rash, fever, chills, diarrhea, constipation, back pain, numbness, tingling, hematuria, dysuria, urinary urgency, urinary frequency, or any other complaints. - Related Data Home Medications Medication Instructions Recorded Confirmed DULoxetine HCL [Cymbalta] 60 mg PO BID 06/02/19 06/16/19 Disulfiram [Antabuse] 500 mg PO DAILY 06/16/19 06/16/19 LORazepam [Ativan] 1 mg PO TID 06/16/19 06/16/19 QUEtiapine FUMARATE [SEROquel] 600 mg PO HS 06/16/19 06/16/19 Allergies Allergy/AdvReac Type Severity Reaction Status Date / Time No Known Allergies Allergy Verified 06/16/19 16:50 Review of Systems ROS Statement: Those systems with pertinent positive or pertinent negative responses have been documented in the HPI. ROS Other: All systems not noted in ROS Statement are negative. Past Medical History Past Medical History: Cancer Additional Past Medical History / Comment(s): alcoholism, insomnia, past cervical cancer History of Any Multi-Drug Resistant Organisms: None Reported Past Surgical History: Orthopedic Surgery, Uterine Ablation Additional Past Surgical History / Comment(s): rhinoplasty, cervical cancer currently and skin cancer lymph node removed in the 6th grade, left wrist Past Anesthesia/Blood Transfusion Reactions: No Reported Reaction Past Psychological History: Anxiety, Bipolar, Depression Smoking Status: Never smoker Past Alcohol Use History: Occasional Past Drug Use History: None Reported - Past Family History Father Additional Family Medical History / Comment(s): Father is age 57. Alcoholism, diverticulosis Mother Additional Family Medical History / Comment(s): Mother is alive at age 65 with no major medical problems. Brother(s) Additional Family Medical History / Comment(s): Patient has 2 brothers with no major medical problems. She does not have any sisters. She does not have any children. General Exam General appearance: alert, in no apparent distress, other (This is a well-developed, well-nourished adult female patient in no acute distress. Vital signs upon presentation are temperature 98.7F, pulse 123, respirations 18, blood pressure 115/84, pulse ox 98% on room air.) Eye exam: Present: normal appearance, PERRL, EOMI. Absent: scleral icterus, con junctival injection, periorbital swelling ENT exam: Present: normal exam, normal oropharynx, mucous membranes moist Respiratory exam: Present: normal lung sounds bilaterally. Absent: respiratory distress, wheezes, rales, rhonchi, stridor Cardiovascular Exam: Present: regular rate, normal rhythm, normal heart sounds. Absent: systolic murmur, diastolic murmur, rubs, gallop, clicks GI/Abdominal exam: Present: soft, normal bowel sounds. Absent: distended, tenderness, guarding, rebound, rigid Neurological exam: Present: alert, CN II-XII intact. Absent: oriented X3 (Orie nted 2) Psychiatric exam: Absent: homicidal ideation, suicidal ideation Skin exam: Present: warm, dry, intact, normal color. Absent: rash Course Vital Signs 06/16/19 06/16/19 15:46 17:49 Temperature 98.7 F Pulse Rate 123 H 105 H Respiratory 18 18 Rate Blood Pressure 115/84 116/85 O2 Sat by Pulse 98 98 Oximetry Medical Decision Making - Medical Decision Making 33-year-old female patient presents to the emergency department today for evaluation of discharge gait, altered mental status. Patient's that she's been confused today. Having hallucinations. Patient states her psychiatric medications were recently increased, she started the new dosage yesterday. Patient denies any headache injury. Labs reviewed and did reveal drug screen positive for cocaine, patient states that she did not do cocaine, she is unsure why this is present in her system. CT brain was obtained and was unremarkable. Patient did attempt to ambulate in the department several times and was unable to support herself without nearly falling. She denies any back pain, numbness, or tingling. Patient will be admitted for altered mental status and psych consult will be placed for evaluation and medication review. - Lab Data Result diagrams: 06/16/19 16:13 06/16/19 16:13 Lab Results 06/16/19 06/16/19 06/16/19 Range/Units 16:13 16:13 16:13 WBC 11.4 H (3.8-10.6) k/uL RBC 4.40 (3.80-5.40) m/uL Hgb 12.8 (11.4-16.0) gm/dL Hct 39.6 (34.0-46.0) % MCV 90.1 (80.0-100.0) fL MCH 29.2 (25.0-35.0) pg MCHC 32.4 (31.0-37.0) g/dL RDW 13.4 (11.5-15.5) % Plt Count 360 (150-450) k/uL Neutrophils % 76 % Lymphocytes % 18 % Monocytes % 4 % Eosinophils % 1 % Basophils % 1 % Neutrophils # 8.6 H (1.3-7.7) k/uL Lymphocytes # 2.0 (1.0-4.8) k/uL Monocytes # 0.4 (0-1.0) k/uL Eosinophils # 0.1 (0-0.7) k/uL Basophils # 0.1 (0-0.2) k/uL PT 10.4 (9.0-12.0) sec INR 1.0 (<1.2) APTT 25.4 (22.0-30.0) sec Sodium 136 L (137-145) mmol/L Potassium (3.5-5.1) mmol/L Chloride 99 (98-107) mmol/L Carbon Dioxide 24 (22-30) mmol/L Anion Gap 13 mmol/L BUN 14 (7-17) mg/dL Creatinine 0.95 (0.52-1.04) mg/dL Est GFR (CKD-EPI)AfAm >90 (>60 ml/min/1.73 sqM) Est GFR (CKD-EPI)NonAf 79 (>60 ml/min/1.73 sqM) Glucose 101 H (74-99) mg/dL Plasma Lactic Acid Gerald (0.7-2.0) mmol/L Calcium 8.8 (8.4-10.2) mg/dL Phosphorus (2.5-4.5) mg/dL Magnesium (1.6-2.3) mg/dL Total Bilirubin 0.6 (0.2-1.3) mg/dL AST 116 H (14-36) U/L ALT 31 (9-52) U/L Alkaline Phosphatase 74 (38-126) U/L Troponin I (0.000-0.034) ng/mL Total Protein 8.5 H (6.3-8.2) g/dL Albumin 4.5 (3.5-5.0) g/dL Urine Color Urine Appearance (Clear) Urine pH (5.0-8.0) Ur Specific [place] (1.001-1.035) Urine Protein (Negative) Urine Glucose (UA) (Negative) Urine Ketones (Negative) Urine Blood (Negative) Urine Nitrite (Negative) Urine Bilirubin (Negative) Urine Urobilinogen (<2.0) mg/dL Ur Leukocyte Esterase (Negative) Urine WBC (0-5) /hpf Ur Squamous Epith Cells (0-4) /hpf Hyaline Casts (0-2) /lpf Urine Mucus (None) /hpf Urine HCG, Qual (Not Detectd) Salicylates mg/dL Urine Opiates Screen (NotDetected) Ur Oxycodone Screen (NotDetected) Urine Methadone Screen (NotDetected) Ur Propoxyphene Screen (NotDetected) Acetaminophen ug/mL Ur Barbiturates Screen (NotDetected) U Tricyclic Antidepress (NotDetected) Ur Phencyclidine Scrn (NotDetected) Ur Amphetamines Screen (NotDetected) U Methamphetamines Scrn (NotDetected) U Benzodiazepines Scrn (NotDetected) Urine Cocaine Screen (NotDetected) U Marijuana (THC) Screen (NotDetected) 06/16/19 06/16/19 06/16/19 Range/Units 16:13 16:13 16:51 WBC (3.8-10.6) k/uL RBC (3.80-5.40) m/uL Hgb (11.4-16.0) gm/dL Hct (34.0-46.0) % MCV (80.0-100.0) fL MCH (25.0-35.0) pg MCHC (31.0-37.0) g/dL RDW (11.5-15.5) % Plt Count (150-450) k/uL Neutrophils % % Lymphocytes % % Monocytes % % Eosinophils % % Basophils % % Neutrophils # (1.3-7.7) k/uL Lymphocytes # (1.0-4.8) k/uL Monocytes # (0-1.0) k/uL Eosinophils # (0-0.7) k/uL Basophils # (0-0.2) k/uL PT (9.0-12.0) sec INR (<1.2) APTT (22.0-30.0) sec Sodium (137-145) mmol/L Potassium (3.5-5.1) mmol/L Chloride (98-107) mmol/L Carbon Dioxide (22-30) mmol/L Anion Gap mmol/L BUN (7-17) mg/dL Creatinine (0.52-1.04) mg/dL Est GFR (CKD-EPI)AfAm (>60 ml/min/1.73 sqM) Est GFR (CKD-EPI)NonAf (>60 ml/min/1.73 sqM) Glucose (74-99) mg/dL Plasma Lactic Acid Gerald (0.7-2.0) mmol/L Calcium (8.4-10.2) mg/dL Phosphorus 3.5 (2.5-4.5) mg/dL Magnesium 2.0 (1.6-2.3) mg/dL Total Bilirubin (0.2-1.3) mg/dL AST (14-36) U/L ALT (9-52) U/L Alkaline Phosphatase (38-126) U/L Troponin I <0.012 (0.000-0.034) ng/mL Total Protein (6.3-8.2) g/dL Albumin (3.5-5.0) g/dL Urine Color Yellow Urine Appearance Cloudy H (Clear) Urine pH 6.5 (5.0-8.0) Ur Specific [place] 1.018 (1.001-1.035) Urine Protein 1+ H (Negative) Urine Glucose (UA) Negative (Negative) Urine Ketones Negative (Negative) Urine Blood Negative (Negative) Urine Nitrite Negative (Negative) Urine Bilirubin Negative (Negative) Urine Urobilinogen <2.0 (<2.0) mg/dL Ur Leukocyte Esterase Negative (Negative) Urine WBC 3 (0-5) /hpf Ur Squamous Epith Cells 5 H (0-4) /hpf Hyaline Casts 6 H (0-2) /lpf Urine Mucus Few H (None) /hpf Urine HCG, Qual (Not Detectd) Salicylates <1.0 mg/dL Urine Opiates Screen Not Detected (NotDetected) Ur Oxycodone Screen Not Detected (NotDetected) Urine Methadone Screen Not Detected (NotDetected) Ur Propoxyphene Screen Not Detected (NotDetected) Acetaminophen <10.0 ug/mL Ur Barbiturates Screen Not Detected (NotDetected) U Tricyclic Antidepress Detected H (NotDetected) Ur Phencyclidine Scrn Not Detected (NotDetected) Ur Amphetamines Screen Not Detected (NotDetected) U Methamphetamines Scrn Not Detected (NotDetected) U Benzodiazepines Scrn Detected H (NotDetected) Urine Cocaine Screen Detected H (NotDetected) U Marijuana (THC) Screen Not Detected (NotDetected) 06/16/19 06/16/19 Range/Units 16:51 18:04 WBC (3.8-10.6) k/uL RBC (3.80-5.40) m/uL Hgb (11.4-16.0) gm/dL Hct (34.0-46.0) % MCV (80.0-100.0) fL MCH (25.0-35.0) pg MCHC (31.0-37.0) g/dL RDW (11.5-15.5) % Plt Count (150-450) k/uL Neutrophils % % Lymphocytes % % Monocytes % % Eosinophils % % Basophils % % Neutrophils # (1.3-7.7) k/uL Lymphocytes # (1.0-4.8) k/uL Monocytes # (0-1.0) k/uL Eosinophils # (0-0.7) k/uL Basophils # (0-0.2) k/uL PT (9.0-12.0) sec INR (<1.2) APTT (22.0-30.0) sec Sodium (137-145) mmol/L Potassium (3.5-5.1) mmol/L Chloride (98-107) mmol/L Carbon Dioxide (22-30) mmol/L Anion Gap mmol/L BUN (7-17) mg/dL Creatinine (0.52-1.04) mg/dL Est GFR (CKD-EPI)AfAm (>60 ml/min/1.73 sqM) Est GFR (CKD-EPI)NonAf (>60 ml/min/1.73 sqM) Glucose (74-99) mg/dL Plasma Lactic Acid Gerald 1.2 (0.7-2.0) mmol/L Calcium (8.4-10.2) mg/dL Phosphorus (2.5-4.5) mg/dL Magnesium (1.6-2.3) mg/dL Total Bilirubin (0.2-1.3) mg/dL AST (14-36) U/L ALT (9-52) U/L Alkaline Phosphatase (38-126) U/L Troponin I (0.000-0.034) ng/mL Total Protein (6.3-8.2) g/dL Albumin (3.5-5.0) g/dL Urine Color Urine Appearance (Clear) Urine pH (5.0-8.0) Ur Specific [place] (1.001-1.035) Urine Protein (Negative) Urine Glucose (UA) (Negative) Urine Ketones (Negative) Urine Blood (Negative) Urine Nitrite (Negative) Urine Bilirubin (Negative) Urine Urobilinogen (<2.0) mg/dL Ur Leukocyte Esterase (Negative) Urine WBC (0-5) /hpf Ur Squamous Epith Cells (0-4) /hpf Hyaline Casts (0-2) /lpf Urine Mucus (None) /hpf Urine HCG, Qual Not Detected (Not Detectd) Salicylates mg/dL Urine Opiates Screen (NotDetected) Ur Oxycodone Screen (NotDetected) Urine Methadone Screen (NotDetected) Ur Propoxyphene Screen (NotDetected) Acetaminophen ug/mL Ur Barbiturates Screen (NotDetected) U Tricyclic Antidepress (NotDetected) Ur Phencyclidine Scrn (NotDetected) Ur Amphetamines Screen (NotDetected) U Methamphetamines Scrn (NotDetected) U Benzodiazepines Scrn (NotDetected) Urine Cocaine Screen (NotDetected) U Marijuana (THC) Screen (NotDetected) - Radiology Data Radiology results: report reviewed, image reviewed CT brain without contrast was obtained. Report reviewed in its entirety. Impression by Dr. Michael shows no acute intracranial hemorrhage or midline shift. Disposition Clinical Impression: Altered mental status, Gait disturbance Disposition: [facility] Condition: Serious Referrals: Rahat Fletcher DO [Primary Care Provider] - 1-2 days Decision to Admit Reason: Admit from EC Decision Date: 06/16/19 Decision Time: 19:58
[2019-06-16 17:00] LABS: Appearance,Urine Cloudy (Clear); Bilirubin,Urine Negative (Negative); Blood,Urine Negative (Negative); Color,Urine Yellow; Glucose,Urine (UA) Negative (Negative); Hyaline Casts,Urine 6 /lpf (0-2); Ketones,Urine Negative (Negative); Leukocyte Esterase,Urine Negative (Negative); Mucus,Urine Few /hpf; Nitrite,Urine Negative (Negative); PH, Urine 6.5 (5.0-8.0); Protein,Urine 1+ (Negative); Specific Gravity,Urine 1.018 (1.001-1.035); Squamous Epithelial Cell,Urine 5 /hpf (0-4); Urobilinogen,Urine <2.0 mg/dL (<2.0); WBC,Urine 3 /hpf (0-5)
[2019-06-16 17:10] LABS: Amphetamine Screen,Urine Not Detected (NotDetected); Barbiturate Screen,Urine Not Detected (NotDetected); Benzodiazepines Screen,Urine Detected (NotDetected); Cocaine Screen,Urine Detected (NotDetected); Methadone Screen, Urine Not Detected (NotDetected); Opiate Screen,Urine Not Detected (NotDetected); Oxycodone Screen, Urine Not Detected (NotDetected); Phencyclidine Screen,Urine Not Detected (NotDetected); Tricyclic Antidepressant,Urine Detected (NotDetected); Urn Cannabinoid Scrn Not Detected (NotDetected)
[2019-06-16 18:16] LABS: Acetaminophen <10.0 ug/mL; Salicylate <1.0 mg/dL
[2019-06-16 18:18] LABS: Phosphorus 3.5 mg/dL (2.5-4.5)
--- NOTE | 2019-06-16 18:31 | CT ---
EXAMINATION TYPE: CT brain wo con DATE OF EXAM: 06/16/2019 COMPARISON: None. HISTORY: Dizziness and unsteady gait. CT DLP: 1094.4 mGycm. Automated Exposure Control for Dose Reduction was Utilized. TECHNIQUE: CT scan of the head is performed without contrast. FINDINGS: There is no acute intracranial hemorrhage, mass effect, or midline shift identified. The ventricles and sulci are within normal limits in size. [place]-white matter differentiation is maintain ed. There is partial visualization of mucous retention cysts or polyp in the posterior inferior left maxillary sinus on lowest axial images. There is right anterolateral smaller maxillary sinus mucous r etention cyst or polyp near axial image 6 noted. Remainder of visualized sinuses are clear and globes are intact bilaterally. IMPRESSION: No acute intracranial hemorrhage or midline shift is seen.
[2019-06-16] MEDS ORDERED: NALOXONE 0.4 MG/ML 1 ML VIAL IV PRN (19:55)
[2019-06-16] MEDS ORDERED: QUEtiapine 200 MG TAB PO SCH (23:15)
[2019-06-16] MEDS: LORazepam 1 MG TAB PO SCH (23:31)
[2019-06-16] MEDS: DULoxetine HCL 60 MG CAPSULE.DR PO SCH (23:31)
[2019-06-17] MEDS: DULoxetine HCL 60 MG CAPSULE.DR PO SCH (08:09)
[2019-06-17] MEDS: LORazepam 1 MG TAB PO SCH (08:09)
[2019-06-17] MEDS ORDERED: LORazepam 1 MG TAB PO PRN (13:15)
[2019-06-17] MEDS: chlordiazePOXIDE 25 MG CAP PO SCH ×3 (13:35→20:36)
[2019-06-17] MEDS: LORazepam 1 MG TAB PO PRN ×2 (13:48→21:07)
--- NOTE | 2019-06-17 14:37 | P.CN ---
Psychiatric Consult - . Consult date: 06/17/19 Consult:: 06/17/19 12:39 IDENTIFYING DATA: This patient is a 33-year-old female who currently lives alone, has a chronic history of bipolar disorder along with alcohol use, unmarried and has no kids. HISTORY OF PRESENT ILLNESS: The patient was brought into the hospital by her father for altered mental status and confusion. Psychiatry was consulted for psychosis and one property underwriter went to see patient, father was sitting at the bedside and was agreeable to give collateral information. As per father, he states that she had to call another police friend of his to help him bring his daughter to the hospital for an evaluation. Father stated that patient "looked off and confused" father also stated that patient did not know the date or where she was and wanted to get evaluated. Father did say that patient was admitted to [facility] and was discharged last Sunday as she was having suicidal ideations with plans to jump off a bridge and was discharged on higher dose of her medications which he stated made her feel more confused. As per nurse who is taking care patient, she states that patient was noted to be wandering on the unit last night owing into other patient's rooms and was confused and setting up but alarms. She was also complaining of visual hallucinations and seeing people that weren't there and having gait problems. Patient was evaluated at the bedside and appeared to be somewhat directable and attempted to be cooperative with property underwriter. Patient appeared to be confused and was minimizing her symptoms claiming that "I was just a little bit manic last night but I'm okay now". Patient states that her Seroquel doses at 600 mg which she felt was too high and was affecting her cognition and her mood. She also spoke about her boyfriend whom she ended her relationship with about 1 month ago and admitted to relapsing back on alcohol thereafter. Patient states that she is been drinking around a 12 pack of beer every other day since then. Patient claims that she denies being confused and does not remember wandering but but did feel that she was in her friend Marlene's house last night. Patient also stated that she has not started taking her naltrexone for cravings.. At this time patient denies any suicidal or homical ideations, intent or plan. Patient denies any auditory, visual hallucinations. Patient was minimizing her symptoms and was in denial of what happened, has poor insight and judgment. PAST PSYCHIATRIC HISTORY: Patient was recently admitted to the mental health unit over 1 month ago for bipolar disorder and depression along with alcohol use. Patient was stabilized on 60 mg of Cymbalta, Seroquel 150 mg and BuSpar as needed. Patient also has a other hospitalization since then Hoang Treadwell was discharged last Sunday on an increased dose of Seroquel and Ativan scheduled. PAST MEDICAL HISTORY: Left arm fracture, currently in a cast ALLERGIES: No known drug allergies. CHEMICAL DEPENDENCY HISTORY: Patient admits to drinking alcohol approximately 12 pack of beers every other day with her last drink being 2 days ago. Denies any other substance use. FAMILY PSYCHIATRIC/SUBSTANCE USE HISTORY: Claims that her father abused alcohol. SOCIAL HISTORY: Patient currently lives alone in a home is unmarried has no kids and works at a [employer] shop. MENTAL STATUS EXAM: General Appearance: Patient appears to be stated age is alert, pleasant, and cooperative. Patient did appear to be confused at times. Behavior: Patient is calmly lying in bed without any agitated behavior. Speech: Patient's speech is fluent and nonpressured. Mood/Affect: Patient reports their mood is "alright", affect is incongruent Suicidality/Homicidality: Patient denies having any suicidal or homicidal ideation intent or plan. Perceptions: Patient denies any auditory or visual hallucinations. Though content/process: There is no evidence of any delusional thought content and thought process is tangential and patient is confused at times. Memory and concentration: AOX2, patient thought it was 05/17/2019. Patient knew the past 3 presidents. Patient can identify 3 objects. Can spell "WORLD" backwards however did poorly on serial sevens. Judgment and insight: Poor judgment and insight IMPRESSIONS: Delirium likely multiple etiology medications, substance withdrawal and toxic/metabolic Bipolar disorder, depressed Alcohol use disorder moderate-severe, currently in withdrawal. PLAN: -At this time patient does meet criteria for inpatient psychiatric admission. -Would recommend the following medication changes/additions: We will decrease Seroquel to 150 mg nightly for mood stabilization. We'll discontinue Cymbalta and scheduled Ativan at this time as it may be contributing to patient's altered mental status. -Started scheduled dose of Librium 25 mg 4 times a day, can taper off agilely according to vitals and patient's condition. -Start 1:1 sitter for safety and this is to be continued until patient is admitted to mental health unit. -CIWA every 6 hours for alcohol withdrawal. -Cannot leave AMA at this time. Patient will need a certification if attempting to leave AMA. Father agreed to complete a petition on the patient. -Will continue to follow along as needed. -When medically stable, patient is eligible for transfer to a psych bed when available. Patient should have stable vitals and be off Ativan for 24 hours before being transferred. Thank you for the consult 06/17/19 14:15 06/17/19 14:26
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
[2019-06-17] MEDS: METOPROLOL TARTRATE 12.5 MG TAB PO SCH ×2 (16:52→20:36)
[2019-06-17] MEDS ORDERED: QUEtiapine 100 MG TAB PO SCH (21:00)
[2019-06-17] MEDS ORDERED: QUEtiapine 50 MG TAB PO SCH (21:00)
[2019-06-17] MEDS ORDERED: QUEtiapine 50 MG TAB PO STA (23:02)
[2019-06-18 07:33] VITALS: BP 102/70; PULSE 82; RESP 20; TEMP 97.5
[2019-06-18] MEDS: METOPROLOL TARTRATE 12.5 MG TAB PO SCH (07:33)
[2019-06-18] MEDS: chlordiazePOXIDE 25 MG CAP PO SCH ×2 (07:34→12:11)
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
== END 2019-06-18 13:12 ==
LOC: EC 15:37 → 4MS4W 20:53
PROVIDERS: ADMIT Hospitalist; ATTEND Hospitalist
DX: G92 Toxic encephalopathy (principal); F05 Delirium due to known physiological condition; T43.595A Adverse effect of other antipsychotics and neuroleptics, initial encounter; T42.4X5A Adverse effect of benzodiazepines, initial encounter; F10.231 Alcohol dependence with withdrawal delirium; F51.04 Psychophysiologic insomnia; F31.9 Bipolar disorder, unspecified; F41.9 Anxiety disorder, unspecified; R44.3 Hallucinations, unspecified; W19.XXXA Unspecified fall, initial encounter; T50.7X6A Underdosing of analeptics and opioid receptor antagonists, initial encounter; S42.302D Unspecified fracture of shaft of humerus, left arm, subsequent encounter for fracture with routine healing; Z79.899 Other long term (current) drug therapy; Z87.828 Personal history of other (healed) physical injury and trauma; Z85.41 Personal history of malignant neoplasm of cervix uteri; Z85.828 Personal history of other malignant neoplasm of skin; Z81.1 Family history of alcohol abuse and dependence; Z83.79 Family history of other diseases of the digestive system
CPT/HCPCS: 82075; 96360; 96361; 99285; 36415; 80053; 83605; 83735; 84100; 84484; 85025; 85610; 85730; 81001; 81025; 80306; 83520; 70450; G0378 ×3; G0480; 80329

== ENCOUNTER 2019-06-18 13:04 | Inpatient (IN) | payer MEDICAID ==
[2019-06-18 14:30] VITALS: BMI 22.1
[2019-06-18] MEDS ORDERED: ACETAMINOPHEN TAB 325 MG TAB PO PRN (14:54)
[2019-06-18] MEDS ORDERED: MAG HYDROX/AL HYDROX/SIMETH 30 ML CUP PO PRN (14:54)
[2019-06-18] MEDS ORDERED: MAGNESIUM HYDROXIDE 2,400 MG/10 ML CUP PO PRN (14:54)
[2019-06-18] MEDS ORDERED: LORazepam 1 MG TAB PO PRN (14:58)
[2019-06-18] MEDS: LORazepam 1 MG TAB PO PRN (18:14)
[2019-06-18] MEDS ORDERED: QUEtiapine 100 MG TAB PO SCH (21:00)
[2019-06-19 07:20] VITALS: RESP 16
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
[2019-06-19] MEDS: lamoTRIgine 25 MG TAB PO SCH ×2 (10:12→20:28)
[2019-06-19] MEDS: LORazepam 1 MG TAB PO PRN (15:03)
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
[2019-06-19] MEDS: QUEtiapine 200 MG TAB PO SCH (20:28)
[2019-06-20] MEDS: LORazepam 1 MG TAB PO PRN ×2 (08:22→16:12)
[2019-06-20] MEDS: lamoTRIgine 25 MG TAB PO SCH ×2 (08:22→20:07)
--- NOTE | 2019-06-20 11:03 | P.PN ---
Progress Note - Text Interval history: The patient is found in the [facility] she follows me to an interview room. She indicates she feels sad because she wants to be discharged. She becomes tearful and states she misses her dogs. We reviewed her psychotropic medication. She states she is sleeping with the Seroquel she is comfortable at its current dose. We reviewed the Lamictal she has no questions or concerns. She has attended some groups this morning she is encouraged to continue doing so. She is reporting no new physical concerns. It appears that her cast would be removed in the outpatient setting after discharge from this unit. She states her plan is to reengage in AA groups and establish with her sponsor again upon discharge. Mental status exam: The patient is alert she stressor own clothing she has not yet showered on the mental health unit grooming is fair. Eye contact is appropriate speech is fluent and spontaneous nonpressured. She endorses a sad mood because she still hospitalized. She is tearful during the session 2-3 episodes. She reports no suicidal ideation intent or plan she reports no homicidal ideation intent or plan. She is trying to facilitate a discharge. She reports no symptoms of psychosis there is no objective evidence of psychosis. She demonstrates no tangential thinking loose associations or flight of ideas. Insight and judgment limited but slowly improving. Impressions/plan: Bipolar depression, alcohol use disorder, the patient will continue on her current psychotropic medication. She is encouraged to fully participate in groups. We will monitor her for safety. We will look for input from her family assuming a visit over the weekend. If she demonstrates sufficient clinical stability she she may be appropriate for discharge as soon as Sunday. Vital signs reviewed.
[2019-06-20] MEDS: QUEtiapine 200 MG TAB PO SCH (20:07)
[2019-06-21] MEDS: lamoTRIgine 25 MG TAB PO SCH ×2 (08:54→20:39)
[2019-06-21] MEDS: LORazepam 1 MG TAB PO PRN ×2 (08:55→17:03)
--- NOTE | 2019-06-21 09:30 | P.PN ---
Progress Note - Text Interval history: The patient is found in the hallway she follows me to an interview room. She indicates that her mood is better today as she has a better attitude. She continues to want to be discharged as she misses her dogs. She anticipates her mother will visit this evening. A support meeting is scheduled for Sunday at 11:30. She has no questions or concerns regarding her medications we did review her psychotropic medication. She indicates she slept last night staff reported she slept 7 hours. Appetite stable. Mental status exam: The patient is alert she presents with improved hygiene grooming eye contact is appropriate. Speech is fluent spontaneous nonpressured. She was not tearful during the session. She is reporting no suicidal or homicidal ideation intent or plan. She is reporting no current hopeless thinking. She reports no auditory or visual hallucinations or any specific delusions. There is no observed evidence of psychosis. She does not appear hypomanic or manic. No evidence of tangential thinking loose associations or flight of ideas. She is oriented to person place and date. Insight and ju dgment improving. Impressions/plan: Bipolar depression, alcohol use disorder, the patient will continue on her current medications we will consider titrating the Lamictal further. We continue to monitor for any alcohol withdrawal symptoms. She is instructed to fully participate in the milieu. We will monitor her for safety. If she demonstrated sufficient clinical improvement/stability we will consider discharge on Sunday.
[2019-06-21] MEDS: QUEtiapine 200 MG TAB PO SCH (20:39)
[2019-06-22] MEDS: lamoTRIgine 25 MG TAB PO SCH ×2 (08:34→20:26)
[2019-06-22] MEDS: LORazepam 1 MG TAB PO PRN ×2 (08:34→16:58)
--- NOTE | 2019-06-22 11:55 | P.PN ---
Progress Note - Text Interval history: The patient is found in group she follows me to an interview room. She indicates her mood is good. Her parents visited last evening and that was supportive she expects it will come again to visit shwetha. She has no questions or concerns regarding her medication. We discussed effort she will make to refrain from alcohol use once discharged. She reports appetite is stable she indicates she slept last night. Mental status exam: The patient is alert she's cooperative pleasant. She is dressed in her own clothing hygiene grooming adequate. Eye contact is adequate speech is fluent spontaneous nonpressured. She is reporting no suicidal or homicidal ideation intent or plan. She is reporting no auditory or visual hallucinations or any specific delusions. Insight and judgment improving. Affect was brighter and more appropriately expressive in terms of range. She demonstrates no verbal or physical aggressiveness. Plan: The patient will be continued on current psychotropic medication. She appears to be clinically stabilizing and may be appropriate for discharge as soon as tomorrow. We will continue to monitor for safety. Vital signs reviewed.
[2019-06-22] MEDS: QUEtiapine 200 MG TAB PO SCH (20:26)
[2019-06-23 06:47] VITALS: BP 97/59; PULSE 78; TEMP 97.7
--- NOTE | 2019-06-23 07:29 | DS ---
DISCHARGE SUMMARY DATE OF ADMISSION: 06/18/2019 DATE OF DISCHARGE: 06/23/2019 ADMISSION AND DISCHARGE DIAGNOSES: 1. Bipolar I disorder, depressed. 2. Alcohol use disorder. 3. Recent delirium. HISTORY OF PRESENTING ILLNESS: The patient is a 33-year-old female. She was admitted initially to the medical floor for confusion and mood instability. She presented in a confused state. She was wandering into people's rooms. She had been binge drinking and reportedly drank 12 beers on the day prior to admission. Urine drug screen was positive for cocaine. She was depressed. She has had long-term problems with depression and episodes of karly. This was her fifth psychiatric hospitalization to this facility. The patient indicated that since December 2015 she had a total of 6 to 7 psychiatric admissions. She was at [facility] within the last month prior to this admission. She has had followup with [facility]. She reported drinking alcohol in the last month after having been sober for 2 years. Drug screen was positive for benzodiazepines and cocaine. She was admitted for further evaluation. PAST MEDICAL HISTORY AND PHYSICAL EXAM: As per admission note of Dr. Fortune. MENTAL STATUS EXAM: Eye contact was appropriate. Speech was fluent, spontaneous, non-pressured. Her mood was depressed. She was tearful. She indicated no thoughts of harm to self or others. There was no indication of thought disorder. She was mildly irritable. She was oriented and alert. COURSE OF HOSPITALIZATION: The patient was admitted for comprehensive medical psychiatric and psychosocial evaluation. We engaged the patient in individual and group therapeutic activities. The patient was started on Lamictal 25 mg twice a day and Seroquel 200 mg at bedtime. Early on, the patient was down in her mood. She was tearful. She talked about missing her dogs. She attended activities. She was appropriate in her function on the unit. There were no problems with the start up of her psychotropic medications. As her hospitalization progressed, the patient's mood improved. She had visits with her mother, which seem to be a positive support for her. The two set up a plan for a meeting on the day of discharge to review discharge planning and follow-up care. She was monitored for alcohol withdrawal symptoms and remained stable. Her mood improved throughout her hospitalization. She showed a more hopeful attitude and was future oriented. CONDITION AT DISCHARGE: Patient was stable. Her mood was improved. She voiced no thoughts of harm to self or others. She tolerated her psychotropic medications. RECOMMENDATIONS AND FOLLOWUP: The patient is discharged to home. Discharge medications include: 1. Lamictal 25 mg twice a day. 2. Seroquel 200 mg at bedtime. 3. Antabuse 500 mg daily. Follow-up care is documented in the discharge record. MMODL / IJN: [id number] /
[2019-06-23] MEDS: lamoTRIgine 25 MG TAB PO SCH (08:40)
[2019-06-23] MEDS: LORazepam 1 MG TAB PO PRN (08:42)
== END 2019-06-23 12:00 | disposition home or self-care (01) | DRG 885 ==
LOC: 3MHU 13:16
PROVIDERS: ADMIT Psychiatry & Neurology Psychiatry; ATTEND Psychiatry & Neurology Psychiatry
DX: F31.30 Bipolar disorder, current episode depressed, mild or moderate severity, unspecified (principal); G92 Toxic encephalopathy; F10.20 Alcohol dependence, uncomplicated; T43.591A Poisoning by other antipsychotics and neuroleptics, accidental (unintentional), initial encounter; T42.4X1A Poisoning by benzodiazepines, accidental (unintentional), initial encounter; T40.5X1A Poisoning by cocaine, accidental (unintentional), initial encounter; F41.9 Anxiety disorder, unspecified; F51.04 Psychophysiologic insomnia; S62.102D Fracture of unspecified carpal bone, left wrist, subsequent encounter for fracture with routine healing; Z79.899 Other long term (current) drug therapy; Z85.41 Personal history of malignant neoplasm of cervix uteri; Z85.828 Personal history of other malignant neoplasm of skin; V49.9XXD Car occupant (driver) (passenger) injured in unspecified traffic accident, subsequent encounter; Y92.410 Unspecified street and highway as the place of occurrence of the external cause

== ENCOUNTER 2019-08-06 20:34 | Emergency (ER) | payer OTHER ==
[2019-08-06 20:42] VITALS: BP 115/80; PULSE 112; RESP 19; TEMP 98.7
[2019-08-06] MEDS ORDERED: KETOROLAC 30 MG/ML 1 ML VIAL IM STA (20:53)
[2019-08-06] MEDS ORDERED: CYCLOBENZAPRINE 10MG STARTER 3 TAB BTL PO STA (20:53)
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
== END 2019-08-06 21:19 | disposition home or self-care (01) ==
LOC: EC 20:34
DX: M25.532 Pain in left wrist (principal); R20.0 Anesthesia of skin; R20.2 Paresthesia of skin; F31.9 Bipolar disorder, unspecified; Z87.828 Personal history of other (healed) physical injury and trauma; Z85.41 Personal history of malignant neoplasm of cervix uteri; Z85.828 Personal history of other malignant neoplasm of skin; Z98.890 Other specified postprocedural states; Z79.899 Other long term (current) drug therapy
CPT/HCPCS: 99283; 96372; J1885

== ENCOUNTER 2019-09-05 21:04 | Emergency (ER) | payer OTHER ==
[2019-09-05 21:08] VITALS: TEMP 99.5
[2019-09-05] MEDS ORDERED: IBUPROFEN 600 MG TAB PO STA (22:12)
--- NOTE | 2019-09-05 22:16 | ED ---
Psych HPI - General Source: patient Mode of arrival: ambulatory - History of Present Illness MD Complaint: suicidal ideation, feels depressed -: days(s) Associated Psychiatric Symptoms: depression, suicidal ideation History of same: Yes Quality: constant Improves With: none Worsens With: none <Rui Conn - Last Filed: 09/05/19 22:14> <Jacobo Beal - Last Filed: 09/06/19 09:47> - General Chief Complaint: Psychiatric Symptoms Stated Complaint: Mental Health,Alcohol Time Seen by Provider: 09/05/19 21:11 - History of Present Illness Initial Comments: This patient is a 33-year-old woman who states she has history of bipolar disorder. She states that she has been struggling with depression and also today having suicidal thoughts. (Rui Conn) - Related Data Home Medications Medication Instructions Recorded Confirmed lamoTRIgine [LaMICtal] 100 mg PO HS 08/06/19 08/06/19 Previous Rx's Medication Instructions Recorded QUEtiapine [SEROquel] 200 mg PO HS #30 tab 06/23/19 Allergies Allergy/AdvReac Type Severity Reaction Status Date / Time No Known Allergies Allergy Verified 09/05/19 21:08 Review of Systems ROS Other: All systems not noted in ROS Statement are negative. Constitutional: Denies: fever, chills Respiratory: Denies: cough, dyspnea Cardiovascular: Denies: chest pain, palpitations Gastrointestinal: Denies: abdominal pain, vomiting, diarrhea Genitourinary: Denies: dysuria, hematuria, abnormal menses Musculoskeletal: Denies: back pain Skin: Denies: rash Neurological: Denies: headache, weakness, numbness <Rui Conn - Last Filed: 09/05/19 22:14> ROS Other: All systems not noted in ROS Statement are negative. <Jacobo Beal - Last Filed: 09/06/19 09:47> ROS Statement: Those systems with pertinent positive or pertinent negative responses have been documented in the HPI. Past Medical History Past Medical History: Cancer Additional Past Medical History / Comment(s): alcoholism, insomnia, past cervical cancer History of Any Multi-Drug Resistant Organisms: None Reported Past Surgical History: Orthopedic Surgery, Uterine Ablation Additional Past Surgical History / Comment(s): rhinoplasty, cervical cancer cur rently and skin cancer lymph node removed in the 6th grade, left wrist Past Anesthesia/Blood Transfusion Reactions: No Reported Reaction Past Psychological History: Anxiety, Bipolar, Depression Smoking Status: Never smoker Past Alcohol Use History: Daily Past Drug Use History: None Reported - Past Family History Father Additional Family Medical History / Comment(s): Father is age 57. Alcoholism, diverticulosis Mother Additional Family Medical History / Comment(s): Mother is alive at age 65 with no major medical problems. Brother(s) Additional Family Medical History / Comment(s): Patient has 2 brothers with no major medical problems. She does not have any sisters. She does not have any children. <Rui Conn - Last Filed: 09/05/19 22:14> General Exam Limitations: no limitations General appearance: alert, in no apparent distress Head exam: Present: atraumatic, normocephalic Respiratory exam: Present: normal lung sounds bilaterally. Absent: respiratory distress, wheezes, rales, rhonchi, stridor Cardiovascular Exam: Present: regular rate, normal rhythm, normal heart sounds. Absent: systolic murmur, diastolic murmur, rubs, gallop GI/Abdominal exam: Present: soft. Absent: distended, tenderness, guarding, rebound, rigid Neurological exam: Present: alert Psychiatric exam: Present: depressed, suicidal ideation. Absent: agitated, anxious, flat affect, manic, homicidal ideation Skin exam: Present: warm, dry, intact, normal color. Absent: rash <Rui Conn - Last Filed: 09/05/19 22:14> Course Vital Signs 09/05/19 09/06/19 09/06/19 21:05 07:20 08:11 Temperature 99.5 F Pulse Rate 105 H Respiratory 18 16 16 Rate Blood Pressure 124/84 O2 Sat by Pulse 97 Oximetry Medical Decision Making <Jacobo Beal - Last Filed: 09/06/19 09:47> - Medical Decision Making Patient evaluated by EPS after awaiting sobriety in the emergency department. Patient is agreeable with discharge to outpatient follow-up. She is able to sign a safety plan while in the emergency department. She has good outpatient follow-up and she is also given additional follow-up for alcohol rehabilitation. (Jacobo Beal) - Lab Data Lab Results 09/05/19 09/05/19 Range/Units 22:34 22:34 Urine HCG, Qual Not Detected (Not Detectd) Urine Opiates Screen Not Detected (NotDetected) Ur Oxycodone Screen Not Detected (NotDetected) Urine Methadone Screen Not Detected (NotDetected) Ur Propoxyphene Screen Not Detected (NotDetected) Ur Barbiturates Screen Not Detected (NotDetected) U Tricyclic Antidepress Not Detected (NotDetected) Ur Phencyclidine Scrn Not Detected (NotDetected) Ur Amphetamines Screen Not Detected (NotDetected) U Methamphetamines Scrn Not Detected (NotDetected) U Benzodiazepines Scrn Not Detected (NotDetected) Urine Cocaine Screen Not Detected (NotDetected) U Marijuana (THC) Screen Not Detected (NotDetected) Disposition <Rui Conn - Last Filed: 09/05/19 22:14> Is patient prescribed a controlled substance at d/c from ED?: No Time of Disposition: 09:47 <Jacobo Beal - Last Filed: 09/06/19 09:47> Clinical Impression: Depression, Alcoholic intoxication Disposition: HOME SELF-CARE Condition: Fair Instructions (If sedation given, give patient instructions): Depression (ED) Additional Instructions: Please follow up with your primary care physician as well as from a mental health. Please return with worsening or changing symptoms. Referrals: Rahat Fletcher DO [Primary Care Provider] - 1-2 days
[2019-09-05 23:08] LABS: Amphetamine Screen,Urine Not Detected (NotDetected); Barbiturate Screen,Urine Not Detected (NotDetected); Benzodiazepines Screen,Urine Not Detected (NotDetected); Cocaine Screen,Urine Not Detected (NotDetected); Methadone Screen, Urine Not Detected (NotDetected); Opiate Screen,Urine Not Detected (NotDetected); Oxycodone Screen, Urine Not Detected (NotDetected); Phencyclidine Screen,Urine Not Detected (NotDetected); Tricyclic Antidepressant,Urine Not Detected (NotDetected); Urn Cannabinoid Scrn Not Detected (NotDetected)
[2019-09-06 09:52] VITALS: BP 121/71; PULSE 80; RESP 118
== END 2019-09-06 10:00 | disposition home or self-care (01) ==
LOC: EC 21:04
DX: F31.30 Bipolar disorder, current episode depressed, mild or moderate severity, unspecified (principal); F10.129 Alcohol abuse with intoxication, unspecified; R45.851 Suicidal ideations; Z79.899 Other long term (current) drug therapy; Z85.41 Personal history of malignant neoplasm of cervix uteri; Z85.828 Personal history of other malignant neoplasm of skin; Z98.890 Other specified postprocedural states; Z81.1 Family history of alcohol abuse and dependence
CPT/HCPCS: 80306; 81025; 82075; 99285

== ENCOUNTER 2019-09-08 20:39 | Emergency (ER) | payer OTHER ==
--- NOTE | 2019-09-08 21:44 | ED ---
Psych HPI - General Source: patient, RN notes reviewed, old records reviewed Mode of arrival: ambulatory - History of Present Illness MD Complaint: suicidal ideation, feels depressed -: year(s) Associated Psychiatric Symptoms: depression, suicidal ideation Quality: constant Improves With: none Worsens With: alcohol Context: recent alcohol abuse, significant life stressor (loss of job) Associated Symptoms: denies other symptoms Treatments Prior to Arrival: placed on mental health hold If Self Harm: other (depression) <Chance Gibson - Last Filed: 09/08/19 23:05> <Chance Pedraza - Last Filed: 09/09/19 14:01> - General Chief Complaint: Psychiatric Symptoms Stated Complaint: Suicidal Time Seen by Provider: 09/08/19 20:49 - History of Present Illness Initial Comments: This is a 33-year-old female date of evaluation specifically evaluation regards to psychiatric illnesses severe history of alcohol is bipolar, patient was sitting on a [place] threatening to jump. She is not obviously general she's brought to ER she has history of psychiatric illnesses history of attempted suicide before. Otherwise patient denies headache or pain no other drug or alcohol abuse (Chance Gibson) - Related Data Home Medications Medication Instructions Recorded Confirmed Ibuprofen [Motrin Ib] 800 mg PO Q8H PRN 09/08/19 09/08/19 lamoTRIgine [LaMICtal] 150 mg PO BID 09/08/19 09/08/19 Previous Rx's Medication Instructions Recorded QUEtiapine [SEROquel] 200 mg PO HS #30 tab 06/23/19 Allergies Allergy/AdvReac Type Severity Reaction Status Date / Time No Known Allergies Allergy Verified 09/08/19 22:57 Review of Systems ROS Other: All systems not noted in ROS Statement are negative. <Chance Gibson - Last Filed: 09/08/19 23:05> ROS Other: All systems not noted in ROS Statement are negative. <Chance Pedraza - Last Filed: 09/09/19 14:01> ROS Statement: Those systems with pertinent positive or pertinent negative responses have been documented in the HPI. Past Medical History Past Medical History: Cancer Additional Past Medical History / Comment(s): alcoholism, insomnia, past cervical cancer History of Any Multi-Drug Resistant Organisms: None Reported Past Surgical History: Orthopedic Surgery, Uterine Ablation Additional Past Surgical History / Comment(s): rhinoplasty, cervical cancer currently and skin cancer lymph node removed in the 6th grade, left wrist Past Anesthesia/Blood Transfusion Reactions: No Reported Reaction Past Psychological History: Anxiety, Bipolar, Depression Smoking Status: Never smoker Past Alcohol Use History: Daily Past Drug Use History: None Reported - Past Family History Father Additional Family Medical History / Comment(s): Father is age 57. Alcoholism, diverticulosis Mother Additional Family Medical History / Comment(s): Mother is alive at age 65 with no major medical problems. Brother(s) Additional Family Medical History / Comment(s): Patient has 2 brothers with no major medical problems. She does not have any sisters. She does not have any children. <Chance Gibson - Last Filed: 09/08/19 23:05> General Exam Limitations: no limitations General appearance: alert, appears intoxicated, anxious Head exam: Present: atraumatic, normocephalic, normal inspection Eye exam: Present: normal appearance, PERRL, EOMI. Absent: scleral icterus, conjunctival injection, periorbital swelling ENT exam: Present: normal exam, mucous membranes moist Neck exam: Present: normal inspection. Absent: tenderness, meningismus, lymphadenopathy Respiratory exam: Present: normal lung sounds bilaterally. Absent: respiratory distress, wheezes, rales, rhonchi, stridor Cardiovascular Exam: Present: regular rate, normal rhythm, normal heart sounds. Absent: systolic murmur, diastolic murmur, rubs, gallop, clicks GI/Abdominal exam: Present: soft, normal bowel sounds. Absent: distended, tenderness, guarding, rebound, rigid Extremities exam: Present: normal inspection, full ROM, normal capillary refill. Absent: tenderness, pedal edema, joint swelling, calf tenderness Back exam: Present: normal inspection Neurological exam: Present: alert, oriented X3, CN II-XII intact Psychiatric exam: Present: normal affect, normal mood Skin exam: Present: warm, dry, intact, normal color. Absent: rash <Chance Gibson - Last Filed: 09/08/19 23:05> Course Vital Signs 09/08/19 09/09/19 09/09/19 20:43 06:26 09:40 Temperature 97.9 F 97.6 F Pulse Rate 111 H 92 Respiratory 20 16 16 Rate Blood Pressure 129/74 88/53 O2 Sat by Pulse 95 95 Oximetry 09/09/19 09/09/19 12:58 13:00 Temperature Pulse Rate 95 Respiratory 20 20 Rate Blood Pressure 122/78 O2 Sat by Pulse 96 Oximetry Medical Decision Making <Chance Pedraza - Last Filed: 09/09/19 14:01> - Medical Decision Making EPS evaluated the patient when she was sober and the patient stated she was no longer suicidal he developed a safety plan the patient received a safety plan and the patient will be discharged to follow-up accordingly. I did go into the room and speak with the patient and confirmed that she was comfortable going home and she agreed that she was she also stated she was not suicidal and that her biggest problem is drinking for which she has relapsed in the last 2 months. (Chance Pedraza) Disposition <Chance Gibson - Last Filed: 09/08/19 23:05> Is patient prescribed a controlled substance at d/c from ED?: No Time of Disposition: 13:55 <Chance Pedraza - Last Filed: 09/09/19 14:01> Clinical Impression: Situational depression, Alcohol abuse Disposition: HOME SELF-CARE Condition: Good Instructions (If sedation given, give patient instructions): Depression (ED), Abuse of Alcohol (ED) Referrals: Rahat Fletcher DO [Primary Care Provider] - 1-2 days
[2019-09-08] MEDS ORDERED: QUEtiapine 200 MG TAB PO STA (23:11)
[2019-09-09 06:28] VITALS: TEMP 97.6
[2019-09-09 13:00] VITALS: RESP 20
[2019-09-09 14:19] VITALS: BP 126/77; PULSE 90
== END 2019-09-09 14:27 | disposition home or self-care (01) ==
LOC: EC 20:39
DX: F43.21 Adjustment disorder with depressed mood (principal); F10.129 Alcohol abuse with intoxication, unspecified; R45.851 Suicidal ideations; Z56.0 Unemployment, unspecified; F31.9 Bipolar disorder, unspecified; Z79.899 Other long term (current) drug therapy; Z85.41 Personal history of malignant neoplasm of cervix uteri; Z85.828 Personal history of other malignant neoplasm of skin; Z98.890 Other specified postprocedural states; Z81.1 Family history of alcohol abuse and dependence
CPT/HCPCS: 82075; 99285

== ENCOUNTER 2020-02-25 21:23 | Inpatient (IN) | payer MEDICAID, OTHER ==
[2020-02-25 22:22] LABS: Amphetamine Screen,Urine Not Detected (NotDetected); Barbiturate Screen,Urine Not Detected (NotDetected); Benzodiazepines Screen,Urine Not Detected (NotDetected); Cocaine Screen,Urine Not Detected (NotDetected); Methadone Screen, Urine Not Detected (NotDetected); Opiate Screen,Urine Not Detected (NotDetected); Oxycodone Screen, Urine Not Detected (NotDetected); Phencyclidine Screen,Urine Not Detected (NotDetected); Tricyclic Antidepressant,Urine Detected (NotDetected); Urn Cannabinoid Scrn Not Detected (NotDetected)
--- NOTE | 2020-02-25 22:48 | ED ---
General Adult HPI - General Chief complaint: Psychiatric Symptoms Stated complaint: Mental Health Time Seen by Provider: 02/25/20 21:41 Source: patient, family, RN notes reviewed, old records reviewed Mode of arrival: ambulatory Limitations: no limitations - History of Present Illness Initial comments: 34-year-old female patient with the ED for evaluation of suicidal ideations. Patient fourth that she is a bipolar, states that she stopped taking her [place] ictal 2 weeks ago and since then she has been having mood swings, has been having some fleeting suicidal ideations. Denies any actual to herself or others. Denies any thoughts of harming others. Does report that she has been drinking alcohol excessively. Denies any other complaints. Systemic: Pt denies fatigue, fever/chills, rash. Pt denies weakness, night sweats, weight loss. Neuro: Pt denies headache, visual disturbances, syncope or pre-syncope. HEENT: Pt denies ocular discharge or irritation, otalgia, rhinorrhea, pharyngitis or notable lymphadenopathy. Cardiopulmonary: Pt denies chest pain, SOB, heart palpitations, dyspnea on exertion. Abdominal/GI: Pt denies abdominal pain, n/v/d. : Pt denies dysuria, burning w/ urination, frequency/urgency. Denies new onset urinary or bowel incontinence. MSK: Pt denies myalgia, loss of strength or function in extremities. Neuro: Pt denies new onset weakness, paresthesias. - Related Data Home Medications Medication Instructions Recorded Confirmed Disulfiram 500 mg PO DAILY 02/26/20 02/26/20 Previous Rx's Medication Instructions Recorded Folic Acid 1 mg PO DAILY 30 Days tab 03/03/20 Multivitamins, Thera [Multivitamin 1 each PO DAILY 30 Days tab 03/03/20 (formulary)] QUEtiapine [SEROquel] 100 mg PO HS 30 Days tab 03/03/20 Thiamine [Vitamin B-1] 100 mg PO DAILY 30 Days tab 03/03/20 lamoTRIgine [LaMICtal] 50 mg PO BID 5 Days tab 03/03/20 lamoTRIgine [LaMICtal] 100 mg PO BID 25 Days tab 03/03/20 Allergies Allergy/AdvReac Type Severity Reaction Status Date / Time No Known Allergies Allergy Verified 02/26/20 12:10 Review of Systems ROS Statement: Those systems with pertinent positive or pertinent negative responses have been documented in the HPI. ROS Other: All systems not noted in ROS Statement are negative. Past Medical History Past Medical History: Cancer Additional Past Medical History / Comment(s): alcoholism, insomnia, past cervical cancer History of Any Multi-Drug Resistant Organisms: None Reported Past Surgical History: Orthopedic Surgery, Uterine Ablation Additional Past Surgical History / Comment(s): rhinoplasty, cervical cancer currently and skin cancer lymph node removed in the 6th grade, left wrist Past Anesthesia/Blood Transfusion Reactions: No Reported Reaction Past Psychological History: Anxiety, Bipolar, Depression Smoking Status: Never smoker Past Alcohol Use History: Daily Past Drug Use History: None Reported - Past Family History Father Additional Family Medical History / Comment(s): Father is age 57. Alcoholism, diverticulosis Mother Additional Family Medical History / Comment(s): Mother is alive at age 65 with no major medical problems. Brother(s) Additional Family Medical History / Comment(s): Patient has 2 brothers with no major medical problems. She does not have any sisters. She does not have any children. General Exam - General Exam Comments Initial Comments: Constitutional: NAD, AOX3, Pt has pleasant affect. HEENT: NC/AT, trachea midline, neck supple, no lymphadenopathy. Posterior pharynx non erythematous, without exudates. External ears appear normal, without discharge. Mucous membranes moist. Eyes PERRLA, EOM intact. There is no scleral icterus. No pallor noted. Cardiopulmonary: RRR, no murmurs, rubs or gallops, no JVD noted. Lungs CTAB in anterior and posterior lomeli. No peripheral edema. Abdominal exam: Abdomen soft and non-distended. Abdomen non-tender to palpation in all 4 quadrants. Bowel sounds active in LLQ. No hepatosplenomegaly. No ecchymosis Neuro: CN II-XII grossly intact. No nuchal rigidity. No raccon eyes, no paz sign, no hemotympanum. No cervical spinal tenderness. MSK: Full active ROM in upper and lower extremities, 5/5 stregnth. Limitations: no limitations Course Vital Signs 02/25/20 02/26/20 02/26/20 21:25 01:31 03:00 Temperature 98.2 F 98.0 F Pulse Rate 113 H 86 74 Respiratory 18 16 18 Rate Blood Pressure 122/84 107/84 109/77 O2 Sat by Pulse 96 96 98 Oximetry 02/26/20 02/26/20 05:19 07:00 Temperature 97.9 F 97.3 F L Pulse Rate 103 H 97 Respiratory 20 18 Rate Blood Pressure 110/76 108/68 O2 Sat by Pulse 97 98 Oximetry Medical Decision Making - Medical Decision Making 34-year-old female patient was admitted for evaluation of suicidal ideations, patient was in stable afebrile. Physical exam did not display acute pathology. Patient is intoxicated with ETOH, signed out to Dr. Beal pending EPS evaluation. - Lab Data Result diagrams: 02/27/20 06:47 02/27/20 06:47 Lab Results 02/25/20 02/25/20 Range/Units 21:56 21:56 Urine HCG, Qual Not Detected (Not Detectd) Urine Opiates Screen Not Detected (NotDetected) Ur Oxycodone Screen Not Detected (NotDetected) Urine Methadone Screen Not Detected (NotDetected) Ur Propoxyphene Screen Not Detected (NotDetected) Ur Barbiturates Screen Not Detected (NotDetected) U Tricyclic Antidepress Detected H (NotDetected) Ur Phencyclidine Scrn Not Detected (NotDetected) Ur Amphetamines Screen Not Detected (NotDetected) U Methamphetamines Scrn Not Detected (NotDetected) U Benzodiazepines Scrn Not Detected (NotDetected) Urine Cocaine Screen Not Detected (NotDetected) U Marijuana (THC) Screen Not Detected (NotDetected) Disposition Clinical Impression: Psychiatric disorder Disposition: ADMITTED IP TO THIS [facility] Condition: Stable Is patient prescribed a controlled substance at d/c from ED?: No
[2020-02-26] MEDS ORDERED: LORazepam 1 MG TAB PO STA ×2 (05:16→09:54)
[2020-02-26] MEDS ORDERED: MAGNESIUM HYDROXIDE 2,400 MG/10 ML CUP PO PRN (11:39)
[2020-02-26] MEDS ORDERED: ACETAMINOPHEN TAB 325 MG TAB PO PRN (11:39)
[2020-02-26] MEDS ORDERED: MAG HYDROX/AL HYDROX/SIMETH 30 ML CUP PO PRN (11:39)
[2020-02-26] MEDS ORDERED: ZIPRASIDONE 20 MG VIAL IM PRN (11:39)
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
[2020-02-26] MEDS: LORazepam 1 MG TAB PO PRN ×2 (13:56→19:13)
[2020-02-26] MEDS: ARIPiprazole 5 MG TAB PO SCH (13:56)
[2020-02-26] MEDS ORDERED: LORazepam 1 MG TAB PO SCH (16:00)
[2020-02-26] MEDS: ACAMPROSATE CALCIUM 333 MG TABLET.DR PO SCH ×2 (16:35→21:05)
[2020-02-26] MEDS: traZODone HCL 50 MG TAB PO SCH (20:15)
[2020-02-26] MEDS ORDERED: QUEtiapine 200 MG TAB PO SCH (21:00)
--- NOTE | 2020-02-26 23:17 | P.CONS ---
History of Present Illness - Reason for Consult Consult date: 02/26/20 Medical management Requesting physician: Mk Stephens - History of Present Illness Consultation: This is a 34-year-old patient of Dr. Fletcher. Patient has a known history of bipolar disorder. Patient does live by self. history of alcoholism-been to [facility]. Had been sober for 2 years. Relapse in May 2019.. Patient is again sober for 2 months until October of this year.Patient received a stimulus checked from the [employer] for $1200 during the pandemic of COVID. Patient has spent about $250 the same towards alcohol. Patient has been drinking about 10. Today at about a half a pint of whiskey daily. Patient is becoming a little depressed anxious. Also not been taking her medications including Lamictal. She feels she is messed up. Her appetite has been okay. Has been a bowel movement. Sleep pattern is slightly ordered. Sometimes gets suicidal ideations. Denies any order to visualize summations. Apparently her mother has asking her not to take her medications. Denies any fever and chills. Per admitted to the psychiatry unit. Review of systems: GEN.: Tired EYES: None HEENT: None NECK: None RESPIRATORY: None CARDIOVASCULAR: None GASTROINTESTINAL: None GENITOURINARY: None MUSCULOSKELETAL: None LYMPHATICS: None HEMATOLOGICAL: None PSYCHIATRY: Anxious and depressed NEUROLOGICAL: None Past medical history: To include Alcoholism, insomnia, bipolar disorder Social history: Did go to [facility] in the past. Was sober for about 2 years. Drinking about 10 beers a day with half a pint of whiskey. Denies any other recreational drugs. Family history: Father had alcoholism and diverticulosis Physical examination: VITAL SIGNS: 97.9, 120, 20, 110/79, 96% on room air GENERAL: Sitting up, tired EYES: Pupils equal. Conjunctiva normal. HEENT: External appearance of nose and ears normal, oral cavity grossly normal. Hair up in a ponytail on top of the head NECK: JVD not raised; masses not palpable. HEART: First and second heart sounds are normal; no edema. LUNGS: Respiratory rate normal; clear to auscultation. ABDOMEN: Soft, nontender, liver spleen not palpable, no masses palpable. PSYCH: Alert and oriented x3; mood and affect anxious NEUROLOGICAL: Cranial nerves grossly intact; no facial asymmetry, power and sensation grossly intact. LYMPHATICS: No lymph nodes palpable in axilla and neck DERMATOLOGICAL: Multiple tattoos Investigations: Urine drug screen positive for tricyclic antidepressants. Urine Hcg- negative Assessment: -Chronic insomnia -Bipolar disorder mixed features -Alcohol use disorder -Sinus tachycardia likely from early alcohol withdrawal Plan: Patient is already on Librium. Other medications as per Dr. Stephens. Questions were answered. Patient to follow-up with the family doctor upon discharge. Patient had been on disulfiram as an outpatient it seems. But I believe this drug is not currently available. Patient advised to begin follow-up with a detox center for example [facility]. When she is more stable from a psychiatry standpoint. Thank you Dr. Stephens Past Medical History Past Medical History: Cancer Additional Past Medical History / Comment(s): alcoholism, insomnia, past cervical cancer History of Any Multi-Drug Resistant Organisms: None Reported Past Surgical History: Orthopedic Surgery, Uterine Ablation Additional Past Surgical History / Comment(s): rhinoplasty, cervical cancer currently and skin cancer lymph node removed in the 6th grade, left wrist Past Anesthesia/Blood Transfusion Reactions: No Reported Reaction Past Psychological History: Anxiety, Bipolar, Depression Smoking Status: Never smoker Past Alcohol Use History: Daily Additional Past Alcohol Use History / Comment(s): went to [facility] for a lcohol has been sober for 50 days Past Drug Use History: None Reported Additional Drug Use History / Comment(s): Patient states that she tried herion for the first time on 01/08/16, unsure of amount and went unresponsive where she required CPR to bring her back to life per Patient. - Past Family History Father Additional Family Medical History / Comment(s): Father is age 57. Alcoholism, diverticulosis Mother Additional Family Medical History / Comment(s): Mother is alive at age 65 with no major medical problems. Brother(s) Additional Family Medical History / Comment(s): Patient has 2 brothers with no major medical problems. She does not have any sisters. She does not have any children. Medications and Allergies Home Medications Medication Instructions Recorded Confirmed Type QUEtiapine [SEROquel] 200 mg PO HS #30 tab 06/23/19 02/26/20 Rx Disulfiram 500 mg PO DAILY 02/26/20 02/26/20 History lamoTRIgine [LaMICtal] 100 mg PO BID 02/26/20 02/26/20 History Allergies Allergy/AdvReac Type Severity Reaction Status Date / Time No Known Allergies Allergy Verified 02/26/20 12:10 Physical Exam Vitals: Vital Signs Temp Pulse Pulse Resp BP BP Pulse Ox 02/26/20 20:29 98 F 120 H 20 110/79 02/26/20 19:09 97.9 F 133 H 15 107/72 96 02/26/20 18:00 98.0 F 02/26/20 13:52 97.2 F L 132 H 16 105/71 97 02/26/20 11:57 98.9 F 110 H 16 111/72 96 02/26/20 11:33 97.3 F L 97 18 108/68 98 02/26/20 07:00 97.3 F L 97 18 108/68 98 02/26/20 05:19 97.9 F 103 H 20 110/76 97 02/26/20 03:00 74 18 109/77 98 02/26/20 01:31 98.0 F 86 16 107/84 96 Intake and Output 02/26/20 02/26/20 02/27/20 14:59 22:59 06:59 Other: Weight 53.07 kg
[2020-02-27] MEDS: LORazepam 1 MG TAB PO PRN ×4 (05:41→23:07)
[2020-02-27 07:20] LABS: Basophils % (A) 0 %; Eosinophils # (A) 0.1 k/uL (0-0.7); Eosinophils % (A) 2 %; HCT 41.9 % (34.0-46.0); HGB 13.7 gm/dL (11.4-16.0); Lymphocytes % (A) 38 %; MCH 30.1 pg (25.0-35.0); MCHC 32.7 g/dL (31.0-37.0); MCV 92.3 fL (80.0-100.0); Mean Platelet Volume 7.2; Monocytes # (A) 0.3 k/uL (0-1.0); Monocytes % (A) 6 %; Neutrophils # (A) 2.7 k/uL (1.3-7.7); Neutrophils % (A) 52 %; Platelet Count 276 k/uL (150-450); RBC 4.54 m/uL (3.80-5.40); RDW 13.5 % (11.5-15.5); WBC 5.3 k/uL (3.8-10.6)
[2020-02-27 07:36] LABS: ALT 128 U/L (4-34); AST 106 U/L (14-36); African American GFR (CKD) >90 (>60 ml/min/1.73 sqM); Albumin 4.9 g/dL (3.5-5.0); Alkaline Phosphatase 59 U/L (38-126); Anion Gap 15 mmol/L; Blood Urea Nitrogen 10 mg/dL (7-17); Calcium 9.5 mg/dL (8.4-10.2); Carbon Dioxide 21 mmol/L (22-30); Chloride 97 mmol/L (98-107); Glucose 95 mg/dL (74-99); Non-African American GFR(CKD) >90 (>60 ml/min/1.73 sqM); Potassium 4.2 mmol/L (3.5-5.1); Sodium 133 mmol/L (137-145); Total Bilirubin 1.2 mg/dL (0.2-1.3); Total Protein 8.9 g/dL (6.3-8.2); Triglycerides 200 mg/dL (<150)
[2020-02-27 07:43] LABS: LDL Cholesterol,Calculated 212 mg/dL (0-99)
[2020-02-27 07:50] LABS: Cholesterol 393 mg/dL (<200); HDL Cholesterol 141 mg/dL (40-60)
[2020-02-27] MEDS: ARIPiprazole 5 MG TAB PO SCH (08:33)
[2020-02-27] MEDS: ACAMPROSATE CALCIUM 333 MG TABLET.DR PO SCH (08:33)
--- NOTE | 2020-02-27 10:01 | P.PN ---
Progress Note - Text Progress Note Date: 02/27/20 Interval History: Patient was seen laying down in her bed this morning and was directable and ag reeable to speak with grant writer in the office. Patient was tearful at times during the interview and claimed that she misses her dogs and her family. She states that she is not used to being away from them for this long. Patient claims that she believes she will only be in the hospital for 3 days. She states that her mood is "depressed" and also claimed that she does have mild anxiety. She state s that she tried to take the medications yesterday however claims that she threw up shortly afterwards and believes that it is the acamprosate that is causing that. She states that she had poor sleep last night as she was not able to take the trazodone. At this time patient denies any suicidal or homical ideations, intent or plan. Patient denies any auditory, visual hallucinations and denies any paranoia or delusions. Patient denies any side effects from the medications and has been compliant with meds. Stem Teacher spoke with patient about rehab and patient continues to decline rehab and wants to do outpatient substance use programs. Mental Status Exam: General Appearance: Patient appears to be stated age is alert, directable, superficial, tearful at times. Patient appears to have poor hygiene and grooming. Behavior: Patient is seated without any agitated behavior. Superficial Speech: Patient's speech is fluent and nonpressured. Soft tone. Mood/Affect: Patient reports their mood is "depressed", affect is congruent and tearful Suicidality/Homicidality: Patient denies having any homicidal ideation intent or plan. Denies any suicidal ideations intent or plan Perceptions: Patient denies any visual hallucinations and denies any auditory hallucinations Though content/process: There is no evidence of any delusional thought content and thought process is linear and goal-directed. Minimizes her drinking and her mental illness. Memory and concentration: AOX3, grossly intact for the purposes of this session Judgment and insight: poor Assessment Bipolar disorder, mixed features. Alcohol use disorder Plan: -Patient continues to meet criteria for inpatient psychiatric admission for symptom stabilization and safety. Patient has signed medication consent and was placed in patient's chart. Will be filing for court ordered treatment today. -Medications: We'll continue with Abilify 5 mg daily for mood stabilization with plan to transition onto Abilify Maintenna to ensure compliance. Continue with trazodone 25 mg daily at bedtime for sleep/mood. Discontinued acamprosate as this may be the reason for patient's nausea/vomiting. Continue with Librium 20 mg 3 times a day for alcohol withdrawal and begin tapering off tomorrow. I added melatonin 5 mg nightly for sleep. -thiamine, MVM for etoh use -CIWA protocol with Ativan PRN for ETOH withdrawal -When necessary Ativan and Geodon for agitation/aggression. -NRT -not need to this patient does not smoke. -SW on board for discharge planning. Encouraged the patient to participate in milieu. We'll attempt to continue to discuss substance use treatment options with patient.
[2020-02-27] MEDS: THIAMINE 100 MG TAB PO SCH (10:30)
[2020-02-27] MEDS: FOLIC ACID 1 MG TAB PO SCH (10:30)
[2020-02-27] MEDS: MULTIVITAMINS, THERA 1 EACH TAB PO SCH (10:30)
[2020-02-27] MEDS: ONDANSETRON 4 MG TAB PO PRN ×2 (10:32→17:01)
[2020-02-27 14:21] LABS: Hemoglobin A1C 5.4 % (4.0-6.0)
[2020-02-27] MEDS: traZODone HCL 50 MG TAB PO SCH (20:05)
[2020-02-27] MEDS ORDERED: MELATONIN 5 MG TABLET PO SCH (21:00)
[2020-02-28] MEDS: ARIPiprazole 5 MG TAB PO SCH (08:06)
[2020-02-28] MEDS: THIAMINE 100 MG TAB PO SCH (08:07)
[2020-02-28] MEDS: MULTIVITAMINS, THERA 1 EACH TAB PO SCH (08:07)
[2020-02-28] MEDS: FOLIC ACID 1 MG TAB PO SCH (08:07)
[2020-02-28] MEDS: LORazepam 1 MG TAB PO PRN (12:29)
--- NOTE | 2020-02-28 16:17 | P.PN ---
Progress Note - Text Progress Note Date: 02/28/20 Clinical Problems: Bipolar disorder mixed features, alcohol use disorder severe dependence Interim history: The medical record and interviewed the patient. Her only complaint was difficulty falling and staying asleep. She reported no benefit from the combination of melatonin and trazodone. She requested to resume Seroquel at nighttime for sleep. She was distressed that her psychiatrist initiated an involuntary treatment order. She complains of continued feelings depression but denied suicidal thoughts. She perseverated on wanting to return home to be with her pet. She also talked about her alcohol use problem and alleged that she was abstinent from alcohol when she was taking Antabuse. She relapsed alcohol prior to admission because Antabuse was not available at local pharmacies apparently because of the current pandemic. She requested to continue with Antabuse because she was unable to tolerate to acomprosate. She denied alcohol withdrawal symptoms. Her scale scores range from 0-9. Mental status exam: She presented as a short and thin female who was neatly dressed and groomed. She made eye contact and attended the interview. She had no prominent physical abnormalities. She showed no abnormality of psychomotor activity. She was not restless or agitated. Her speech was spontaneous with and consistent with her mood. Affect was depressed and she cried intermittently during the interview. She denied suicidal ideation or wishes. She feels helpless over the current hospitalization but denied feelings of hopelessness or worthlessness. She didn't express ideas reference, paranoid ideation or delusions. Her thinking was abstract and associations were coherent and logical. She denied hallucinations didn't appear to responding to internal stimuli. Assessment: She is having no significant alcohol withdrawal symptoms. She continues to have signs and symptoms depression, complicated by suicidality. Plan: Continue inpatient treatment. Continue suicide precautions. Continue Abilify 5 mg daily. Discontinue melatonin and trazodone. Begin Seroquel 50 mg at bedtime for sleep. Encourage participation in therapeutic groups and activities. Evaluate clinical status response to treatment daily basis.
[2020-02-28] MEDS: QUEtiapine 50 MG TAB PO SCH (20:09)
[2020-02-29] MEDS: LORazepam 1 MG TAB PO PRN ×2 (02:48→10:54)
[2020-02-29] MEDS: FOLIC ACID 1 MG TAB PO SCH (08:02)
[2020-02-29] MEDS: THIAMINE 100 MG TAB PO SCH (08:02)
[2020-02-29] MEDS: ARIPiprazole 5 MG TAB PO SCH (08:02)
[2020-02-29] MEDS: MULTIVITAMINS, THERA 1 EACH TAB PO SCH (08:02)
--- NOTE | 2020-02-29 14:57 | P.PN ---
Progress Note - Text Progress Note Date: 02/29/20 Clinical Problems: Bipolar disorder mixed features, alcohol use disorder severe dependence Interim history: The medical record and interviewed the patient. She was able to fall asleep and sleeps denied with the 50 mg dose of Seroquel. She reports that her mood was "much improved and she denied having thoughts of or suicide. She continues to be concerned about Antabuse and she also abuses the best option for controlling her alcohol use. She denied alcohol withdrawal symptoms. Mental status exam: She presented as a short and thin female who was neatly dressed and groomed. She made eye contact and attended the interview. She had no prominent physical abnormalities. She showed no abnormality of psychomotor activity. She was not restless or agitated. Her speech was spontaneous with and consistent with her mood. Affect was blunted but stable and appropriate.. She denied suicidal ideation or wishes. She feels helpless over the current hospitalization but denied feelings of hopelessness or worthlessness. She didn't express ideas reference, paranoid ideation or delusions. Her thinking was abstract and associations were coherent and logical. She denied hallucinations didn't appear to responding to internal stimuli. Assessment: She is having no significant alcohol withdrawal symptoms. She appears less distress depressed and is denying suicidal ideation. Plan: Continue inpatient treatment. Continue suicide precautions. Continue Abilify 5 mg daily. Discontinue melatonin and trazodone. Begin Seroquel 50 mg at bedtime for sleep. Encourage participation in therapeutic groups and activities. Evaluate clinical status response to treatment daily basis.
[2020-02-29] MEDS: QUEtiapine 50 MG TAB PO SCH (21:03)
[2020-03-01] MEDS: LORazepam 1 MG TAB PO PRN ×3 (00:42→17:46)
[2020-03-01] MEDS: THIAMINE 100 MG TAB PO SCH (08:37)
[2020-03-01] MEDS: MULTIVITAMINS, THERA 1 EACH TAB PO SCH (08:37)
[2020-03-01] MEDS: ARIPiprazole 5 MG TAB PO SCH (08:38)
[2020-03-01] MEDS: FOLIC ACID 1 MG TAB PO SCH (08:40)
--- NOTE | 2020-03-01 10:44 | P.PN ---
Progress Note - Text Progress Note Date: 03/01/20 Interval History: Patient was seen sitting in on group this morning and was directable and agree able to speak with junior copywriter in the office. Patient was tearful at times during the interview today and continues to perseverate on discharge and going to see her dogs. Patient continues to minimize her symptoms and her alcohol use problems. She was superficially cooperative with taking her medications however was requesting several times to be taken off the Abilify. She states that "makes me cry a lot" and states that she does better on Lamictal. She continues to have poor insight into her illness. She states that she has been showering and eating meals. She states that she had better sleep last night however request to be increased on her dose of Seroquel. At this time patient denies any suicidal or homical ideations, intent or plan. Patient denies any auditory, visual hallucinations and denies any paranoia or delusions. Patient denies any side effects from the medications and has been compliant with meds. Associate Artistic Director continues to speak with patient about substance use rehab and patient continues to decline and states that she wants to do outpatient substance use treatment. Mental Status Exam: General Appearance: Patient appears to be stated age is alert, directable, superficial, tearful Patient appears to have improving hygiene and grooming. Behavior: Patient is seated without any agitated behavior. Superficial Speech: Patient's speech is fluent and nonpressured. Soft tone. Mood/Affect: Patient reports their mood is "a bit better", affect is congruent and tearful Suicidality/Homicidality: Patient denies having any homicidal ideation intent or plan. Denies any suicidal ideations intent or plan Perceptions: Patient denies any visual hallucinations and denies any auditory hallucinations Though content/process: There is no evidence of any delusional thought content and thought process is linear and goal-directed. Minimizes her drinking and her mental illness. Memory and concentration: AOX3, grossly intact for the purposes of this session Judgment and insight: poor Assessment Bipolar disorder, mixed features. Alcohol use disorder Plan: -Patient continues to meet criteria for inpatient psychiatric admission for symptom stabilization and safety. Patient has signed medication consent and was placed in patient's chart. Continuing to await deferral and full court hearing. -Medications: We'll discontinue Abilify at this time due to possibility of side effects. Decreased Librium 10 mg 3 times a day for alcohol withdrawal, continuing to taper off. Continue with melatonin 5 mg nightly for sleep. Started Lamictal 25 mg twice a day for mood stabilization/depression. Increase Seroquel to 100 mg daily at bedtime for mood stabilization/insomnia. -thiamine, MVM for etoh use -[facility] protocol with Ativan PRN for ETOH withdrawal, we'll discontinue tomorrow. Vital signs reviewed -When necessary Ativan and Geodon for agitation/aggression. -NRT -not need to this patient does not smoke. -SW on board for discharge planning. Encouraged the patient to participate in milieu. We'll attempt to continue to discuss substance use treatment options with patient, at this time will ask that [facility] submit for substance use treatment order.
[2020-03-01] MEDS: lamoTRIgine 25 MG TAB PO SCH ×2 (11:27→19:54)
[2020-03-01] MEDS: QUEtiapine 100 MG TAB PO SCH (19:54)
[2020-03-02] MEDS: MULTIVITAMINS, THERA 1 EACH TAB PO SCH (07:48)
[2020-03-02] MEDS: lamoTRIgine 25 MG TAB PO SCH ×2 (07:49→20:23)
[2020-03-02] MEDS: FOLIC ACID 1 MG TAB PO SCH (07:49)
[2020-03-02] MEDS: THIAMINE 100 MG TAB PO SCH (07:49)
[2020-03-02 10:56] LABS: Albumin 4.7 g/dL (3.5-5.0); Bilirubin,Unconjugated 0.5 mg/dL (0.0-1.1); Total Bilirubin 0.4 mg/dL (0.2-1.3)
--- NOTE | 2020-03-02 11:23 | P.PN ---
Progress Note - Text Progress Note Date: 03/02/20 Interval History: Patient was seen wandering the hallways this morning and was directable and ag reeable to speak with song writer in the office. Patient was more appropriately with song writer today and did not offer any new complaints. She states that she was able to sleep better last night on the increase in her Seroquel. She states that she feels the Lamictal is really helping her with her mood stability. Patient was okay with having this dose increased today. Patient was more appropriate and appeared to have mild improvement in her insight and judgment. She states that she has been showering and eating meals. She claims that she has been going to groups and working on her coping skills. At this time patient denies any suicidal or homical ideations, intent or plan. Patient denies any auditory, visual hallucinations and denies any paranoia or delusions. Patient denies any side effects from the medications and has been compliant with meds. Graphic Specialist continues to speak with patient about substance use rehab and patient continues to decline and states that she wants to do outpatient substance use treatment. Mental Status Exam: General Appearance: Patient appears to be stated age is alert, directable, not tearful today and more cooperative. Patient appears to have improving hygiene and grooming. Behavior: Patient is seated without any agitated behavior. Superficial Speech: Patient's speech is fluent and nonpressured. Soft tone. Mood/Affect: Patient reports their mood is "better", affect is congruent Suicidality/Homicidality: Patient denies having any homicidal ideation intent or plan. Denies any suicidal ideations intent or plan Perceptions: Patient denies any visual hallucinations and denies any auditory hallucinations Though content/process: There is no evidence of any delusional thought content and thought process is linear and goal-directed. Memory and concentration: AOX3, grossly intact for the purposes of this session Judgment and insight: poor, improving mildly. Assessment Bipolar disorder, mixed features. Alcohol use disorder Plan: -Patient continues to meet criteria for inpatient psychiatric admission for symptom stabilization and safety. Patient has signed medication consent and was placed in patient's chart. -Medications: Decreased Librium 10 mg daily for alcohol withdrawal, continuing to taper off. Continue with melatonin 5 mg nightly for sleep. Increased Lamictal 50 mg twice a day for mood stabilization/depression. Continue with S eroquel to 100 mg daily at bedtime for mood stabilization/insomnia. -Will check hepatic function panel today before restarting disulfiram. -thiamine, MVM for etoh use -When necessary Ativan and Geodon for agitation/aggression. -NRT -not need to this patient does not smoke. -SW on board for discharge planning. Encouraged the patient to participate in milieu. industrial relations worker emailed patient's therapist through [facility] recommending that she seek a substance use treatment order for patient. Patient will be having her deferral tomorrow over the phone. Graphic Specialist and patient spoke with patient's mother Denice Timmons over the phone at [phone] and discussed patient's medications, treatment planning and answered questions and concerns and encouraged mother to support patient in her follow-up appointments along with medication compliance and alcohol abstinence, mother agreed and claims that she will be more supportive for the patient. Likely discharge back home tomorrow.
[2020-03-02] MEDS: QUEtiapine 100 MG TAB PO SCH (20:23)
[2020-03-02] MEDS: LORazepam 1 MG TAB PO PRN (20:24)
[2020-03-03 01:08] VITALS: BP 97/68; PULSE 113; RESP 14; TEMP 98.2
[2020-03-03] MEDS: lamoTRIgine 25 MG TAB PO SCH (07:52)
[2020-03-03] MEDS: MULTIVITAMINS, THERA 1 EACH TAB PO SCH (07:52)
[2020-03-03] MEDS: FOLIC ACID 1 MG TAB PO SCH (07:52)
[2020-03-03] MEDS: THIAMINE 100 MG TAB PO SCH (07:53)
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
== END 2020-03-03 12:02 | disposition home or self-care (01) | DRG 885 ==
LOC: EC 21:23 → 3MHU 02-26 11:20
PROVIDERS: ADMIT Psychiatry & Neurology Psychiatry; ATTEND Psychiatry & Neurology Psychiatry
DX: F31.63 Bipolar disorder, current episode mixed, severe, without psychotic features (principal); R45.851 Suicidal ideations; F10.239 Alcohol dependence with withdrawal, unspecified; R00.0 Tachycardia, unspecified; Z91.128 Patient's intentional underdosing of medication regimen for other reason; Z91.19 Patient's noncompliance with other medical treatment and regimen; T50.906A Underdosing of unspecified drugs, medicaments and biological substances, initial encounter; F51.04 Psychophysiologic insomnia; F41.9 Anxiety disorder, unspecified; Z79.899 Other long term (current) drug therapy; Y63.6 Underdosing and nonadministration of necessary drug, medicament or biological substance; Z56.0 Unemployment, unspecified; Z85.41 Personal history of malignant neoplasm of cervix uteri; Z85.828 Personal history of other malignant neoplasm of skin; Z98.890 Other specified postprocedural states; Z81.1 Family history of alcohol abuse and dependence; Z83.79 Family history of other diseases of the digestive system
CPT/HCPCS: 80053; 80061; 80076; 80306; 81025; 82075; 83036; 84443; 85025; 99285

== ENCOUNTER 2020-05-04 05:44 | Emergency (ER) | payer OTHER ==
[2020-05-04 05:53] VITALS: RESP 18
--- NOTE | 2020-05-04 06:43 | ED ---
Psych HPI - General Chief Complaint: Psychiatric Symptoms Stated Complaint: hallucinations Time Seen by Provider: 05/04/20 06:00 Source: patient, RN notes reviewed Mode of arrival: ambulatory Limitations: no limitations - History of Present Illness Initial Comments: This is a 34-year-old female with past medical history of alcohol abuse, bipolar disorder presents emergency Department with chief complaint of hallucinations. Patient states she was at home states that she had visual hallucinations. Patient states that she's never had this before. Patient does not that she did drink some beer last night and which she states she had 2 years sober and has been recently binge drinking. Patient states is not related to her drinking. Patient states that she is taking her Lamictal. She states that she has seen a psychiatrist but states that she's only had virtual appointments. Patient states this has not helped. Patient denies any physical complaints. Patient did present emergency from with father who is concerned about patient. - Related Data Home Medications Medication Instructions Recorded Confirmed Disulfiram 250 mg PO DAILY 02/26/20 05/04/20 Multivitamins, Thera [Multivitamin 1 tab PO DAILY 05/04/20 05/04/20 (formulary)] QUEtiapine FUMARATE [SEROquel] 200 mg PO HS 05/04/20 05/04/20 lamoTRIgine [LaMICtal] 150 mg PO BID 05/04/20 05/04/20 Previous Rx's Medication Instructions Recorded Folic Acid 1 mg PO DAILY 30 Days tab 03/03/20 Allergies Allergy/AdvReac Type Severity Reaction Status Date / Time No Known Allergies Allergy Verified 05/04/20 08:12 Review of Systems ROS Statement: Those systems with pertinent positive or pertinent negative responses have been documented in the HPI. ROS Other: All systems not noted in ROS Statement are negative. Past Medical History Past Medical History: Cancer Additional Past Medical History / Comment(s): alcoholism, insomnia, past cerv ical cancer History of Any Multi-Drug Resistant Organisms: None Reported Past Surgical History: Orthopedic Surgery, Uterine Ablation Additional Past Surgical History / Comment(s): rhinoplasty, cervical cancer currently and skin cancer lymph node removed in the 6th grade, left wrist Past Anesthesia/Blood Transfusion Reactions: No Reported Reaction Past Psychological History: Anxiety, Bipolar, Depression Past Alcohol Use History: Daily Past Drug Use History: None Reported - Past Family History Father Additional Family Medical History / Comment(s): Father is age 57. Alcoholism, diverticulosis Mother Additional Family Medical History / Comment(s): Mother is alive at age 65 with no major medical problems. Brother(s) Additional Family Medical History / Comment(s): Patient has 2 brothers with no major medical problems. She does not have any sisters. She does not have any children. General Exam Limitations: no limitations General appearance: alert, in no apparent distress Head exam: Present: atraumatic, normocephalic, normal inspection Eye exam: Present: normal appearance, PERRL, EOMI. Absent: scleral icterus, conjunctival injection, periorbital swelling ENT exam: Present: normal exam, normal oropharynx, mucous membranes moist, TM's normal bilaterally, normal external ear exam Neck exam: Present: normal inspection, full ROM. Absent: tenderness, meningismus, lymphadenopathy Respiratory exam: Present: normal lung sounds bilaterally. Absent: respiratory distress, wheezes, rales, rhonchi, stridor Cardiovascular Exam: Present: normal rhythm, tachycardia, normal heart sounds. Absent: systolic murmur, diastolic murmur, rubs, gallop, clicks Psychiatric exam: Present: other (Patient is crying, tearful during exam) Skin exam: Present: warm, dry, intact, normal color. Absent: rash Course Vital Signs 05/04/20 05/04/20 05/04/20 05:49 08:00 09:00 Temperature 98.4 F Pulse Rate 110 H Respiratory 18 18 18 Rate Blood Pressure 117/84 O2 Sat by Pulse 98 Oximetry 05/04/20 05/04/20 10:00 11:00 Temperature 97.9 F Pulse Rate 98 Respiratory 18 18 Rate Blood Pressure 108/78 O2 Sat by Pulse Oximetry Medical Decision Making - Medical Decision Making Patient was he had a by [facility] and EPS case discussed with psychiatry will be follow palpation with safety plan. Patient is not suicidal or homicidal. He did discuss absent of alcohol. - Lab Data Lab Results 05/04/20 Range/Units 06:10 Urine Opiates Screen Not Detected (NotDetected) Ur Oxycodone Screen Not Detected (NotDetected) Urine Methadone Screen Not Detected (NotDetected) Ur Propoxyphene Screen Not Detected (NotDetected) Ur Barbiturates Screen Not Detected (NotDetected) U Tricyclic Antidepress Detected H (NotDetected) Ur Phencyclidine Scrn Not Detected (NotDetected) Ur Amphetamines Screen Not Detected (NotDetected) U Methamphetamines Scrn Not Detected (NotDetected) U Benzodiazepines Scrn Not Detected (NotDetected) Urine Cocaine Screen Not Detected (NotDetected) U Marijuana (THC) Screen Not Detected (NotDetected) Disposition Clinical Impression: Alcoholic intoxication, Bipolar disorder Disposition: HOME SELF-CARE Condition: Stable Instructions (If sedation given, give patient instructions): Bipolar Disorder (ED) Additional Instructions: Please return to the Emergency Department if symptoms worsen or any other concerns. Is patient prescribed a controlled substance at d/c from ED?: No Referrals: Rahat Fletcher DO [Primary Care Provider] - 1-2 days Time of Disposition: 11:53
[2020-05-04 06:51] LABS: Amphetamine Screen,Urine Not Detected (NotDetected); Barbiturate Screen,Urine Not Detected (NotDetected); Benzodiazepines Screen,Urine Not Detected (NotDetected); Cocaine Screen,Urine Not Detected (NotDetected); Methadone Screen, Urine Not Detected (NotDetected); Opiate Screen,Urine Not Detected (NotDetected); Oxycodone Screen, Urine Not Detected (NotDetected); Phencyclidine Screen,Urine Not Detected (NotDetected); Tricyclic Antidepressant,Urine Detected (NotDetected); Urn Cannabinoid Scrn Not Detected (NotDetected)
[2020-05-04 11:30] VITALS: BP 108/78; PULSE 98; TEMP 97.9
== END 2020-05-04 12:14 | disposition home or self-care (01) ==
LOC: EC 05:44
DX: F31.9 Bipolar disorder, unspecified (principal); F10.129 Alcohol abuse with intoxication, unspecified; Y90.9 Presence of alcohol in blood, level not specified; F41.9 Anxiety disorder, unspecified; Z79.899 Other long term (current) drug therapy; Z85.828 Personal history of other malignant neoplasm of skin; Z85.41 Personal history of malignant neoplasm of cervix uteri
CPT/HCPCS: 80306; 82075; 99285

== ENCOUNTER 2021-11-04 11:33 | Emergency (ER) | payer OTHER ==
[2021-11-04 11:53] VITALS: PULSE 132; RESP 17; TEMP 97.6
[2021-11-04] MEDS ORDERED: SODIUM CHLORIDE 0.9% 500 ML 500 ML IV STA (12:04)
[2021-11-04] MEDS ORDERED: SODIUM CHLORIDE 0.9% 1,000 ML IV STA (12:04)
[2021-11-04 12:42] LABS: Basophils % (A) 1 %; Eosinophils # (A) 0.1 k/uL (0-0.7); Eosinophils % (A) 2 %; HCT 39.3 % (34.0-46.0); HGB 13.2 gm/dL (11.4-16.0); Lymphocytes # (A) 1.8 k/uL (1.0-4.8); Lymphocytes % (A) 30 %; MCH 31.4 pg (25.0-35.0); MCHC 33.6 g/dL (31.0-37.0); MCV 93.3 fL (80.0-100.0); Mean Platelet Volume 7.9; Monocytes # (A) 0.4 k/uL (0-1.0); Monocytes % (A) 6 %; Neutrophils # (A) 3.5 k/uL (1.3-7.7); Neutrophils % (A) 59 %; Platelet Count 416 k/uL (150-450); RBC 4.22 m/uL (3.80-5.40); RDW 12.8 % (11.5-15.5); WBC 5.8 k/uL (3.8-10.6)
[2021-11-04 13:37] LABS: ALT 15 U/L (4-34); AST 24 U/L (14-36); African American GFR (CKD) >90 (>60 ml/min/1.73 sqM); Albumin 3.5 g/dL (3.5-5.0); Alcohol <10 mg/dL; Alkaline Phosphatase 64 U/L (38-126); Anion Gap 3 mmol/L; Blood Urea Nitrogen 2 mg/dL (7-17); Calcium 8.4 mg/dL (8.4-10.2); Carbon Dioxide 21 mmol/L (22-30); Chloride 111 mmol/L (98-107); Glucose 113 mg/dL (74-99); Magnesium 1.8 mg/dL (1.6-2.3); Non-African American GFR(CKD) >90 (>60 ml/min/1.73 sqM); Potassium 4.4 mmol/L (3.5-5.1); Sodium 135 mmol/L (137-145); Total Bilirubin 0.4 mg/dL (0.2-1.3); Total Protein 6.9 g/dL (6.3-8.2)
[2021-11-04 13:51] LABS: Amorphous Sediment,Urine Rare /hpf; Appearance,Urine Cloudy (Clear); Bilirubin,Urine Negative (Negative); Blood,Urine Negative (Negative); Color,Urine Light Yellow; Glucose,Urine (UA) Negative (Negative); Ketones,Urine Negative (Negative); Leukocyte Esterase,Urine Negative (Negative); Nitrite,Urine Negative (Negative); PH, Urine 6.5 (5.0-8.0); Protein,Urine Negative (Negative); RBC,Urine 2 /hpf (0-5); Specific Gravity,Urine 1.002 (1.001-1.035); Squamous Epithelial Cell,Urine 4 /hpf (0-4); Urobilinogen,Urine <2.0 mg/dL (<2.0); WBC,Urine 1 /hpf (0-5)
[2021-11-04 13:58] LABS: Amphetamine Screen,Urine Not Detected (NotDetected); Barbiturate Screen,Urine Not Detected (NotDetected); Benzodiazepines Screen,Urine Not Detected (NotDetected); Cocaine Screen,Urine Not Detected (NotDetected); Methadone Screen, Urine Not Detected (NotDetected); Opiate Screen,Urine Not Detected (NotDetected); Oxycodone Screen, Urine Not Detected (NotDetected); Phencyclidine Screen,Urine Not Detected (NotDetected); Tricyclic Antidepressant,Urine Detected (NotDetected); Urn Cannabinoid Scrn Not Detected (NotDetected)
--- NOTE | 2021-11-04 14:00 | ED ---
General Adult HPI - General Chief complaint: Seizure Stated complaint: seizure Time Seen by Provider: 11/04/21 11:54 Source: patient, RN notes reviewed Mode of arrival: wheelchair Limitations: no limitations - History of Present Illness Initial comments: 35-year-old female presents emergency Department with chief complaint of possible seizure. Patient states she's not felt well last few days states she's not been eating or drinking much over the last 3 days. Patient states that some is stop by and said that she may have had a seizure. Patient states that she does not remember this. She denies any tongue injury, no extremity weakness no headache or vision. She states she has been feeling well after being started on some new medication. Patient does admit she has had a seizure in the past related to alcohol withdrawal although she's been 40 days sober she is currently on Antabuse. Denies any drug abuse. - Related Data Home Medications Medication Instructions Recorded Confirmed Multivitamins, Thera [Multivitamin 1 tab PO DAILY 05/04/20 11/04/21 (formulary)] QUEtiapine FUMARATE [SEROquel] 200 mg PO HS 05/04/20 11/04/21 Levothyroxine Sodium [Synthroid] 25 mcg PO DAILY 11/04/21 11/04/21 cloNIDine HCL [Catapres] 0.1 mg PO DAILY 11/04/21 11/04/21 hydrOXYzine pamoate [hydrOXYzine 25 mg PO QID PRN 11/04/21 11/04/21 PAMOATE] lamoTRIgine [LaMICtal] 100 mg PO BID 11/04/21 11/04/21 Allergies Allergy/AdvReac Type Severity Reaction Status Date / Time No Known Allergies Allergy Verified 11/04/21 12:24 Review of Systems ROS Statement: Those systems with pertinent positive or pertinent negative responses have been documented in the HPI. ROS Other: All systems not noted in ROS Statement are negative. Past Medical History Past Medical History: Cancer Additional Past Medical History / Comment(s): alcoholism, insomnia, past cervical cancer History of Any Multi-Drug Resistant Organisms: None Reported Past Surgical History: Orthopedic Surgery, Uterine Ablation Additional Past Surgical History / Comment(s): rhinoplasty, cervical cancer cu rrently and skin cancer lymph node removed in the 6th grade, left wrist Past Anesthesia/Blood Transfusion Reactions: No Reported Reaction Past Psychological History: Anxiety, Bipolar, Depression Smoking Status: Current every day smoker Past Alcohol Use History: Daily Past Drug Use History: None Reported - Past Family History Father Additional Family Medical History / Comment(s): Father is age 57. Alcoholism, diverticulosis Mother Additional Family Medical History / Comment(s): Mother is alive at age 65 with no major medical problems. Brother(s) Additional Family Medical History / Comment(s): Patient has 2 brothers with no major medical problems. She does not have any sisters. She does not have any children. General Exam Limitations: no limitations General appearance: alert, in no apparent distress Head exam: Present: atraumatic, normocephalic, normal inspection Eye exam: Present: normal appearance, PERRL, EOMI. Absent: scleral icterus, conjunctival injection, periorbital swelling ENT exam: Present: normal exam, normal oropharynx, mucous membranes moist Neck exam: Present: normal inspection, full ROM. Absent: tenderness, meningismus, lymphadenopathy Respiratory exam: Present: normal lung sounds bilaterally. Absent: respiratory distress, wheezes, rales, rhonchi, stridor Cardiovascular Exam: Present: normal rhythm, tachycardia, normal heart sounds. Absent: systolic murmur, diastolic murmur, rubs, gallop, clicks GI/Abdominal exam: Present: soft, normal bowel sounds. Absent: distended, ten derness, guarding, rebound, rigid Neurological exam: Present: alert, oriented X3, CN II-XII intact, reflexes normal. Absent: motor sensory deficit Skin exam: Present: warm, dry, intact, normal color. Absent: rash Course Vital Signs 11/04/21 11:49 Temperature 97.6 F Pulse Rate 132 H Respiratory 17 Rate Blood Pressure 107/73 O2 Sat by Pulse 100 Oximetry Medical Decision Making - Medical Decision Making Patient presented for possible seizure there is no reported definite seizure- like activity. Patient labs did reveal any acute findings. Patient is tolerating oral intake is no headache no complaints patient we discharged stable condition return parameters discussed. Patient is here with mother who agrees this plan. - Lab Data Result diagrams: 11/04/21 12:27 11/04/21 13:10 Lab Results 11/04/21 11/04/21 11/04/21 Range/Units 12:27 13:10 13:34 WBC 5.8 (3.8-10.6) k/uL RBC 4.22 (3.80-5.40) m/uL Hgb 13.2 (11.4-16.0) gm/dL Hct 39.3 (34.0-46.0) % MCV 93.3 (80.0-100.0) fL MCH 31.4 (25.0-35.0) pg MCHC 33.6 (31.0-37.0) g/dL RDW 12.8 (11.5-15.5) % Plt Count 416 (150-450) k/uL MPV 7.9 Neutrophils % 59 % Lymphocytes % 30 % Monocytes % 6 % Eosinophils % 2 % Basophils % 1 % Neutrophils # 3.5 (1.3-7.7) k/uL Lymphocytes # 1.8 (1.0-4.8) k/uL Monocytes # 0.4 (0-1.0) k/uL Eosinophils # 0.1 (0-0.7) k/uL Basophils # 0.0 (0-0.2) k/uL Sodium 135 L (137-145) mmol/L Potassium 4.4 (3.5-5.1) mmol/L Chloride 111 H (98-107) mmol/L Carbon Dioxide 21 L (22-30) mmol/L Anion Gap 3 mmol/L BUN 2 L (7-17) mg/dL Creatinine 0.74 (0.52-1.04) mg/dL Est GFR (CKD-EPI)AfAm >90 (>60 ml/min/1.73 sqM) Est GFR (CKD-EPI)NonAf >90 (>60 ml/min/1.73 sqM) Glucose 113 H (74-99) mg/dL Calcium 8.4 (8.4-10.2) mg/dL Magnesium 1.8 (1.6-2.3) mg/dL Total Bilirubin 0.4 (0.2-1.3) mg/dL AST 24 (14-36) U/L ALT 15 (4-34) U/L Alkaline Phosphatase 64 (38-126) U/L Total Protein 6.9 (6.3-8.2) g/dL Albumin 3.5 (3.5-5.0) g/dL Urine Color Light Yellow Urine Appearance Cloudy H (Clear) Urine pH 6.5 (5.0-8.0) Ur Specific [place] 1.002 (1.001-1.035) Urine Protein Negative (Negative) Urine Glucose (UA) Negative (Negative) Urine Ketones Negative (Negative) Urine Blood Negative (Negative) Urine Nitrite Negative (Negative) Urine Bilirubin Negative (Negative) Urine Urobilinogen <2.0 (<2.0) mg/dL Ur Leukocyte Esterase Negative (Negative) Urine RBC 2 (0-5) /hpf Urine WBC 1 (0-5) /hpf Ur Squamous Epith Cells 4 (0-4) /hpf Amorphous Sediment Rare H (None) /hpf Urine Opiates Screen Not Detected (NotDetected) Ur Oxycodone Screen Not Detected (NotDetected) Urine Methadone Screen Not Detected (NotDetected) Ur Propoxyphene Screen Not Detected (NotDetected) Ur Barbiturates Screen Not Detected (NotDetected) U Tricyclic Antidepress Detected H (NotDetected) Ur Phencyclidine Scrn Not Detected (NotDetected) Ur Amphetamines Screen Not Detected (NotDetected) U Methamphetamines Scrn Not Detected (NotDetected) U Benzodiazepines Scrn Not Detected (NotDetected) [place] <0.2 mmol/L Urine Cocaine Screen Not Detected (NotDetected) U Marijuana (THC) Screen Not Detected (NotDetected) Serum Alcohol <10 mg/dL Disposition Clinical Impression: Dehydration, Near syncope, Malnutrition Disposition: HOME SELF-CARE Condition: Stable Instructions (If sedation given, give patient instructions): Dehydration (ED) Additional Instructions: Please return to the Emergency Department if symptoms worsen or any other concerns. Is patient prescribed a controlled substance at d/c from ED?: No Referrals: Rahat Fletcher DO [Primary Care Provider] - 1-2 days Time of Disposition: 15:05
[2021-11-04 14:04] LABS: Lithium <0.2 mmol/L
[2021-11-04 15:17] VITALS: BP 99/60
== END 2021-11-04 15:25 | disposition home or self-care (01) ==
LOC: EC 11:33
DX: E86.0 Dehydration (principal); R55 Syncope and collapse; E46 Unspecified protein-calorie malnutrition; F41.9 Anxiety disorder, unspecified; F31.9 Bipolar disorder, unspecified; F17.200 Nicotine dependence, unspecified, uncomplicated; Z85.41 Personal history of malignant neoplasm of cervix uteri
CPT/HCPCS: 99285; 96360; 36415; 93005; 80053; 80178; 83735; 85025; 81001; 80306; G0480; 80320

== ENCOUNTER 2022-01-20 20:35 | Observation (INO) | payer OTHER ==
[2022-01-20 20:43] LABS: Glucose,Whole Blood 92 mg/dL (75-99)
[2022-01-20] MEDS ORDERED: SODIUM CHLORIDE 0.9% 1,000 ML IV STA (20:47)
--- NOTE | 2022-01-20 20:56 | ED ---
General Adult HPI - General Chief complaint: Alcohol Stated complaint: ETOH Time Seen by Provider: 01/20/22 20:47 Source: patient Mode of arrival: ambulatory - History of Present Illness Initial comments: Dictation was produced using SpinNote dictation software. please excuse any grammatical, word or spelling errors. Chief Complaint: 36-year-old female presents emergency department for concerns of alcohol withdrawal History of Present Illness: 36-year-old female she states she is a daily alcohol drinker. She states 6 years ago she was admitted for severe alcohol withdrawal. Patient states he drinks lots of beer and several servings of liquor. States s he had some alcohol today. Patient is depressed because she had spent a much money to treat medical issues with her dog that she was unable to make her house payment. Patient states that this has been making her very upset over the last several days. Patient denies any shakiness. Denies any hallucinations. Patient's son suicidal or homicidal. The ROS documented in this emergency department record has been reviewed and confirmed by me. Those systems with pertinent positive or negative responses have been documented in the HPI. All other systems are other negative and/or noncontributory. PHYSICAL EXAM: General Impression: Alert and oriented x3, not in acute distress HEENT: Normocephalic atraumatic, extra-ocular movements intact, pupils equal and reactive to light bilaterally, mucous membranes moist. Cardiovascular: Heart regular rate and rhythm Chest: Able to complete full sentences, no retractions, no tachypnea Abdomen: abdomen soft, non-tender, non-distended, no organomegaly Musculoskeletal: Pulses present and equal in all extremities, no peripheral edema Motor: no focal deficits noted Neurological: CN II-XII grossly intact, no focal motor or sensory deficits noted Skin: Intact with no visualized rashes Psych: Normal affect and mood ED course: 36-year-old female presents to the emergency department for chief complaint of concerns of developing alcohol withdrawal. Signs upon arrival are within acceptable limits. Patient not showing any physical exam findings to suggest alcohol withdrawal at this time. She is well-appearing. She does appear to be slightly inebriated. She admits to alcohol consumption just prior to arrival. Laboratory evaluation obtained. CBC unremarkable. Metabolic panel shows sodium 147. No acidosis. Serum alcohol is 423. Patient reevaluated at 9:30 PM finally still medical condition. The parents that she does not show any signs of withdrawal. Patient was admitted for alcohol intoxication. Patient be monitored for development of withdrawal symptoms. Patient be admitted to [facility]. - Related Data Home Medications Medication Instructions Recorded Confirmed Multivitamins, Thera [Multivitamin 1 tab PO DAILY 05/04/20 01/20/22 (formulary)] QUEtiapine FUMARATE [SEROquel] 200 mg PO HS 05/04/20 01/20/22 Levothyroxine Sodium [Synthroid] 25 mcg PO DAILY 11/04/21 01/20/22 cloNIDine HCL [Catapres] 0.1 mg PO DAILY 11/04/21 01/20/22 lamoTRIgine [LaMICtal] 100 mg PO BID 11/04/21 01/20/22 LORazepam [Ativan] 0.5 mg PO TID PRN 01/20/22 01/20/22 hydrOXYzine HCL [Atarax] 25 mg PO TID PRN 01/20/22 01/20/22 Allergies Allergy/AdvReac Type Severity Reaction Status Date / Time No Known Allergies Allergy Verified 01/20/22 21:10 Review of Systems ROS Statement: Those systems with pertinent positive or pertinent negative responses have been documented in the HPI. ROS Other: All systems not noted in ROS Statement are negative. Past Medical History Past Medical History: Cancer Additional Past Medical History / Comment(s): alcoholism, insomnia, past cervical cancer History of Any Multi-Drug Resistant Organisms: None Reported Past Surgical History: Orthopedic Surgery, Uterine Ablation Additional Past Surgical History / Comment(s): rhinoplasty, cervical cancer currently and skin cancer lymph node removed in the 6th grade, left wrist Past Anesthesia/Blood Transfusion Reactions: No Reported Reaction Past Psychological History: Anxiety, Bipolar, Depression Smoking Status: Current every day smoker Past Alcohol Use History: Daily Past Drug Use History: None Reported - Past Family History Father Additional Family Medical History / Comment(s): Father is age 57. Alcoholism, diverticulosis Mother Additional Family Medical History / Comment(s): Mother is alive at age 65 with no major medical problems. Brother(s) Additional Family Medical History / Comment(s): Patient has 2 brothers with no major medical problems. She does not have any sisters. She does not have any children. Course Vital Signs 01/20/22 20:36 Temperature 99.3 F Pulse Rate 95 Respiratory 18 Rate Blood Pressure 142/98 O2 Sat by Pulse 95 Oximetry Medical Decision Making - Lab Data Result diagrams: 01/20/22 20:51 01/20/22 20:51 Lab Results 01/20/22 01/20/22 01/20/22 Range/Units 20:41 20:51 20:51 WBC 6.4 (3.8-10.6) k/uL RBC 4.92 (3.80-5.40) m/uL Hgb 14.5 (11.4-16.0) gm/dL Hct 44.6 (34.0-46.0) % MCV 90.6 (80.0-100.0) fL MCH 29.6 (25.0-35.0) pg MCHC 32.6 (31.0-37.0) g/dL RDW 13.5 (11.5-15.5) % Plt Count 355 (150-450) k/uL MPV 6.6 Neutrophils % 21 % Lymphocytes % 72 % Monocytes % 3 % Eosinophils % 1 % Basophils % 2 % Neutrophils # 1.3 (1.3-7.7) k/uL Lymphocytes # 4.6 (1.0-4.8) k/uL Monocytes # 0.2 (0-1.0) k/uL Eosinophils # 0.0 (0-0.7) k/uL Basophils # 0.1 (0-0.2) k/uL Sodium 147 H (137-145) mmol/L Potassium 3.9 (3.5-5.1) mmol/L Chloride 104 (98-107) mmol/L Carbon Dioxide 27 (22-30) mmol/L Anion Gap 16 mmol/L BUN 3 L (7-17) mg/dL Creatinine 0.70 (0.52-1.04) mg/dL Est GFR (CKD-EPI)AfAm >90 (>60 ml/min/1.73 sqM) Est GFR (CKD-EPI)NonAf >90 (>60 ml/min/1.73 sqM) Glucose 101 H (74-99) mg/dL POC Glucose (mg/dL) 92 (75-99) mg/dL POC Glu [employer]acher ID Vicky García Calcium 9.1 (8.4-10.2) mg/dL Serum Alcohol 423 H* mg/dL Disposition Clinical Impression: Alcohol intoxication Disposition: ADMITTED IP TO THIS HOSP Condition: Fair Referrals: Rahat Fletcher DO [Primary Care Provider] - 1-2 days Decision Time: 21:28
[2022-01-20 20:58] LABS: Basophils # (A) 0.1 k/uL (0-0.2); Basophils % (A) 2 %; Eosinophils % (A) 1 %; HCT 44.6 % (34.0-46.0); HGB 14.5 gm/dL (11.4-16.0); Lymphocytes # (A) 4.6 k/uL (1.0-4.8); Lymphocytes % (A) 72 %; MCH 29.6 pg (25.0-35.0); MCHC 32.6 g/dL (31.0-37.0); MCV 90.6 fL (80.0-100.0); Mean Platelet Volume 6.6; Monocytes # (A) 0.2 k/uL (0-1.0); Monocytes % (A) 3 %; Neutrophils # (A) 1.3 k/uL (1.3-7.7); Neutrophils % (A) 21 %; Platelet Count 355 k/uL (150-450); RBC 4.92 m/uL (3.80-5.40); RDW 13.5 % (11.5-15.5); WBC 6.4 k/uL (3.8-10.6)
[2022-01-20 21:08] LABS: African American GFR (CKD) >90 (>60 ml/min/1.73 sqM); Anion Gap 16 mmol/L; Blood Urea Nitrogen 3 mg/dL (7-17); Calcium 9.1 mg/dL (8.4-10.2); Carbon Dioxide 27 mmol/L (22-30); Chloride 104 mmol/L (98-107); Glucose 101 mg/dL (74-99); Non-African American GFR(CKD) >90 (>60 ml/min/1.73 sqM); Potassium 3.9 mmol/L (3.5-5.1); Sodium 147 mmol/L (137-145)
[2022-01-20 21:16] LABS: Alcohol 423 mg/dL
[2022-01-20] MEDS ORDERED: THIAMINE 100 MG/ML 2 ML VIAL IM STA (21:22)
[2022-01-20] MEDS ORDERED: LORazepam 2 MG/ML INJ IV PRN ×3 (21:22)
[2022-01-20] MEDS ORDERED: NALOXONE 0.4 MG/ML 1 ML VIAL IV PRN (21:26)
[2022-01-20] MEDS ORDERED: ONDANSETRON 4 MG/2 ML VIAL IVP PRN (21:26)
[2022-01-20] MEDS: SODIUM CHLORIDE 0.9% 1,000 ML IV SCH (21:53)
[2022-01-20] MEDS: THIAMINE 100 MG TAB PO SCH (21:54)
[2022-01-20] MEDS ORDERED: QUEtiapine 200 MG TAB PO SCH (23:00)
[2022-01-20] MEDS: lamoTRIgine 100 MG TAB PO SCH (23:17)
--- NOTE | 2022-01-21 01:18 | P.HPIM ---
History of Present Illness H&P Date: 01/20/22 Chief Complaint: Depressed emotions 36-year-old female with alcohol dependence and abuse Patient comes into the ED intoxicated complaining of depressed emotions due to social stressors requesting help to quit alcohol, she has been through many relapses rehab's in the past. However she's going through exceptionally hard time denies any active suicidal ideation yet she's been self-medicating with alcohol instead of taking any of her depression medications. Her last drink was today prior to coming to the ED however she seeking help to help her quit alcohol She denies any medical concerns at this time denies any fevers or chills coughing or chest pain denies any nausea vomiting upper respiratory infection symptoms denies any diarrhea or abdominal pain. Patient reports history of alcohol withdrawal seizures. She is requesting Lamictal and Seroquel to help her sleep which is her home medications Review of Systems Pertinent positives as noted in HPI. All other systems were reviewed and are negative Past Medical History Past Medical History: Cancer Additional Past Medical History / Comment(s): alcoholism, insomnia, past cervical cancer History of Any Multi-Drug Resistant Organisms: None Reported Past Surgical History: Orthopedic Surgery, Uterine Ablation Additional Past Surgical History / Comment(s): rhinoplasty, cervical cancer currently and skin cancer lymph node removed in the 6th grade, left wrist Past Anesthesia/Blood Transfusion Reactions: No Reported Reaction Past Psychological History: Anxiety, Bipolar, Depression Smoking Status: Current every day smoker Past Alcohol Use History: Daily Past Drug Use History: None Reported - Past Family History Father Additional Family Medical History / Comment(s): Father is age 57. Alcoholism, diverticulosis Mother Additional Family Medical History / Comment(s): Mother is alive at age 65 with no major medical problems. Brother(s) Additional Family Medical History / Comment(s): Patient has 2 brothers with no major medical problems. She does not have any sisters. She does not have any children. Medications and Allergies Home Medications Medication Instructions Recorded Confirmed Type Multivitamins, Thera [Multivitamin 1 tab PO DAILY 05/04/20 01/20/22 History (formulary)] QUEtiapine FUMARATE [SEROquel] 200 mg PO HS 05/04/20 01/20/22 History Levothyroxine Sodium [Synthroid] 25 mcg PO DAILY 11/04/21 01/20/22 History cloNIDine HCL [Catapres] 0.1 mg PO DAILY 11/04/21 01/20/22 History lamoTRIgine [LaMICtal] 100 mg PO BID 11/04/21 01/20/22 History LORazepam [Ativan] 0.5 mg PO TID PRN 01/20/22 01/20/22 History hydrOXYzine HCL [Atarax] 25 mg PO TID PRN 01/20/22 01/20/22 History Allergies Allergy/AdvReac Type Severity Reaction Status Date / Time No Known Allergies Allergy Verified 01/20/22 21:10 Physical Exam Vitals: Vital Signs Temp Pulse Resp BP Pulse Ox 01/21/22 00:25 78 16 121/88 98 01/20/22 22:54 101 H 18 125/76 98 01/20/22 22:15 110 H 18 124/90 95 01/20/22 21:36 78 18 142/84 97 01/20/22 20:36 99.3 F 95 18 142/98 95 Intake and Output 01/20/22 01/20/22 01/21/22 14:59 22:59 06:59 Other: Weight 52.163 kg Constitutional: No acute distress, cooperative Eyes: Anicteric sclerae, moist conjunctiva, Pupils equal round reactive to light ENMT: NC/AT Oropharynx clear, no erythema, or exudates Neck: Supple, FROM, no masses, or JVD No carotid bruits No thyromegaly Lungs: Clear to auscultation Clear to percussion Normal respiratory effort, no accessory muscle use Cardiovascular: Heart regular in rate and rhythm, No murmurs, gallops, or rubs No peripheral edema Abdominal: Soft Nontender, no guarding, rebound or rigidity Abdomen moving with respiration Normoactive bowel sounds No hepatomegaly, No splenomegaly No palpable mass No abdominal wall hernia noted Skin: Normal temperature, tone, texture, turgor No induration No subcutaneous nodules No rash, lesions No ulcers Extremities: No digital cyanosis No clubbing Pedal pulses intact and symmetrical Radial pulses intact and symmetrical No calf tenderness Psychiatric: Alert and oriented to person, place and time Depressed affect Neuro Muscles Strength 5/5 in all 4 extremities Sensation to light touch grossly present throughout Cranial nerves II-XII grossly intact No focal sensory deficits Lymphatics: no palpable cervical or supraclavicular , or inguinal lymph nodes Results CBC & Chem 7: 01/20/22 20:51 01/20/22 20:51 Labs: Abnormal Lab Results - Last 24 Hours (Table) 01/20/22 Range/Units 20:51 Sodium 147 H (137-145) mmol/L BUN 3 L (7-17) mg/dL Glucose 101 H (74-99) mg/dL Serum Alcohol 423 H* mg/dL Assessment and Plan Assessment: Alcohol intoxication and dependence Monitor for alcohol withdrawals History of alcohol withdrawal seizures Benzos per CIWA scale Seizure precautions IV fluid hydration normal saline Thiamine Resume Seroquel and Lamictal home medications Monitor vital signs Fall precautions Full code Anticipated length of stay less than 2 midnights Heparin subcu 3 times a day for DVT prophylaxis
[2022-01-21] MEDS: SODIUM CHLORIDE 0.9% 1,000 ML IV SCH (06:00)
[2022-01-21] MEDS ORDERED: LEVOTHYROXINE 25 MCG TAB PO SCH (06:30)
[2022-01-21 08:00] VITALS: TEMP 97.8
[2022-01-21] MEDS: THIAMINE 100 MG TAB PO SCH (08:24)
[2022-01-21] MEDS: lamoTRIgine 100 MG TAB PO SCH (08:24)
[2022-01-21] MEDS ORDERED: cloNIDine HCL 0.1 MG TAB PO SCH (09:00)
[2022-01-21] MEDS ORDERED: LORazepam 0.5 MG TAB PO STA (11:25)
[2022-01-21] MEDS ORDERED: chlordiazePOXIDE 25 MG CAP PO STA (12:55)
[2022-01-21 14:55] VITALS: BP 109/75; PULSE 104; RESP 18
--- NOTE | 2022-01-21 18:25 | P.DS ---
Providers Date of admission: 01/20/22 21:26 Expected date of discharge: 01/21/22 Attending physician: Nic Giraldo MD Primary care physician: Rahat Chance [facility] Course: HPI from admission on 01/20/2022: 36-year-old female with alcohol dependence and abuse Patient comes into the ED intoxicated complaining of depressed emotions due to social stressors requesting help to quit alcohol, she has been through many relapses rehab's in the past. However she's going through exceptionally hard time denies any active suicidal ideation yet she's been self-medicating with alcohol instead of taking any of her depression medications. Her last drink was today prior to coming to the ED however she seeking help to help her quit alcohol She denies any medical concerns at this time denies any fevers or chills coughing or chest pain denies any nausea vomiting upper respiratory infection symptoms denies any diarrhea or abdominal pain. Patient reports history of alcohol withdrawal seizures. She is requesting Lamictal and Seroquel to help her sleep which is her home medications Hospital course: Patient was admitted overnight, her blood alcohol level was significantly elevated in the ED. By the following morning she was completely sober and was not exhibiting any signs of alcohol withdrawal. She was complaining of feeling slightly anxious however but otherwise felt significantly better and was insisting on going home. She reports that she has been struggling with alcoholism for a long time and has managed withdrawal at home by taking benzodiazepines at her doctor usually prescribes. Her mother was at bedside and was comfortable with her going home today and she will be assisting her in her recovery for a few days. Patient was given 1 dose of 50 mg Librium in an attempt to sharp off any early signs of alcohol withdrawal which was eminent given the amount that she consumes daily. She was also prescribed Librium 25 mg 3 times a day as needed for drawl to take over the following 3-5 days. She was counseled extensively on the importance of adherence with medication and not to mix with alcohol or any other narcotics, benzodiazepines, or sedatives. She was also instructed not to drive for the following few days until withdrawal symptoms have completely resolved. Patient and her mother were agreeable to this plan and were insisting on going home today. They're instructed to return to the ED if her symptoms are not controlled with oral Librium or if she develops a seizure. Patient was eventually discharged home in stable condition the following day Patient Condition at Discharge: Good Plan - Discharge Summary Discharge Rx Participant: No New Discharge Prescriptions: New chlordiazePOXIDE HCl [Librium] 25 mg PO TID 3 Days #9 capsule No Action Multivitamins, Thera [Multivitamin (formulary)] 1 tab PO DAILY QUEtiapine FUMARATE [SEROquel] 200 mg PO HS Levothyroxine Sodium [Synthroid] 25 mcg PO DAILY cloNIDine HCL [Catapres] 0.1 mg PO DAILY LORazepam [Ativan] 0.5 mg PO TID PRN PRN Reason: Anxiety hydrOXYzine HCL [Atarax] 25 mg PO TID PRN PRN Reason: Anxiety lamoTRIgine [LaMICtal] 100 mg PO BID Discharge Medication List Multivitamins, Thera [Multivitamin (formulary)] 1 tab PO DAILY 05/04/20 [Histor y] QUEtiapine FUMARATE [SEROquel] 200 mg PO HS 05/04/20 [History] Levothyroxine Sodium [Synthroid] 25 mcg PO DAILY 11/04/21 [History] cloNIDine HCL [Catapres] 0.1 mg PO DAILY 11/04/21 [History] lamoTRIgine [LaMICtal] 100 mg PO BID 11/04/21 [History] LORazepam [Ativan] 0.5 mg PO TID PRN 01/20/22 [History] hydrOXYzine HCL [Atarax] 25 mg PO TID PRN 01/20/22 [History] chlordiazePOXIDE HCl [Librium] 25 mg PO TID 3 Days #9 capsule 01/21/22 [Rx] Follow up Appointment(s)/Referral(s): Rahat Fletcher DO [Primary Care Provider] - 1-2 days Activity/Diet/Wound Care/Special Instructions: Follow up with Dr Fletcher as planned as well as counseling. regular diet as tolerated. last received Librium at 2:[address] with return or worsening of the symptoms that brought you here or any concerns or return to ER. Discharge Disposition: HOME SELF-CARE
== END 2022-01-21 14:55 | disposition home or self-care (01) ==
LOC: EC 20:35 → 6NMEDSUR 21:26
PROVIDERS: ADMIT Internal Medicine; ATTEND Internal Medicine
DX: F10.229 Alcohol dependence with intoxication, unspecified (principal); F31.9 Bipolar disorder, unspecified; Y90.8 Blood alcohol level of 240 mg/100 ml or more; G47.00 Insomnia, unspecified; F41.9 Anxiety disorder, unspecified; F17.200 Nicotine dependence, unspecified, uncomplicated; Z79.890 Hormone replacement therapy; Z79.899 Other long term (current) drug therapy; Z85.41 Personal history of malignant neoplasm of cervix uteri; Z85.828 Personal history of other malignant neoplasm of skin; Z71.41 Alcohol abuse counseling and surveillance of alcoholic; Z98.890 Other specified postprocedural states; Z86.69 Personal history of other diseases of the nervous system and sense organs; Z81.1 Family history of alcohol abuse and dependence; Z83.79 Family history of other diseases of the digestive system
CPT/HCPCS: 96372; 99285; 36415; 93005; 80048; 84443; 85025; G0378 ×2; G0480; J3411; 80320

== ENCOUNTER 2022-04-15 16:29 | Observation (INO) | payer OTHER ==
[2022-04-15] MEDS ORDERED: SODIUM CHLORIDE 0.9% 1,000 ML IV STA (17:09)
[2022-04-15 18:01] LABS: HCT 40.9 % (34.0-46.0); HGB 13.4 gm/dL (11.4-16.0); MCH 30.2 pg (25.0-35.0); MCHC 32.8 g/dL (31.0-37.0); MCV 92.3 fL (80.0-100.0); Mean Platelet Volume 7.1; Platelet Count 335 k/uL (150-450); RBC 4.43 m/uL (3.80-5.40); RDW 14.8 % (11.5-15.5)
[2022-04-15 18:09] LABS: African American GFR (CKD) >90 (>60 ml/min/1.73 sqM); Anion Gap 13 mmol/L; Blood Urea Nitrogen 6 mg/dL (7-17); Calcium 8.5 mg/dL (8.4-10.2); Carbon Dioxide 26 mmol/L (22-30); Chloride 104 mmol/L (98-107); Glucose 92 mg/dL (74-99); Non-African American GFR(CKD) >90 (>60 ml/min/1.73 sqM); Potassium 4.2 mmol/L (3.5-5.1); Sodium 143 mmol/L (137-145)
[2022-04-15 18:32] LABS: Alcohol 373 mg/dL
[2022-04-15] MEDS ORDERED: LORazepam 2 MG/ML INJ IV STA (19:21)
[2022-04-15] MEDS ORDERED: THIAMINE 100 MG/ML 2 ML VIAL IM STA ×2 (19:21→19:24)
[2022-04-15] MEDS ORDERED: PHENobarbital SODIUM 130 MG/ML 1 ML VIAL IM STA (19:24)
[2022-04-15] MEDS ORDERED: NALOXONE 0.4 MG/ML 1 ML VIAL IV PRN (19:26)
[2022-04-15] MEDS ORDERED: ONDANSETRON 4 MG/2 ML VIAL IVP PRN (19:26)
--- NOTE | 2022-04-15 19:30 | ED ---
General Adult HPI - General Chief complaint: Alcohol Stated complaint: Alcoholism, Detox Time Seen by Provider: 04/15/22 16:57 Source: patient, RN notes reviewed, old records reviewed Mode of arrival: ambulatory Limitations: no limitations - History of Present Illness Initial comments: Patient is a 36-year-old female who presents emergency Department complaining of alcohol intoxication and history of alcohol withdrawals. Patient states she wants to detox from alcohol. She is a history of heavy alcohol abuse. His pretreated all day. States she started to drop of blood they would like to detox from alcohol. Does have a history of delirium tremens and alcohol withdrawal seizures. States she does not plan on going home and drinking anymore. Would like to be admitted for withdrawal. Has required admission to detox in the past, however does not believe anything is open this weekend. Has gone through [facility] before, however when provided the number was unable to contact them as it appears to be closed. Has no plans to go home and drink anymore alcohol. Like to be admitted and observed over concern for detox. Denies any current tremors, tachycardia, abdominal pain, chest pain, shortness breath. No other acute complaints at this time. - Related Data Home Medications Medication Instructions Recorded Confirmed Multivitamins, Thera [Multivitamin 1 tab PO DAILY 05/04/20 04/15/22 (formulary)] QUEtiapine FUMARATE [SEROquel] 200 mg PO HS 05/04/20 04/15/22 Levothyroxine Sodium [Synthroid] 25 mcg PO DAILY 11/04/21 04/15/22 cloNIDine HCL [Catapres] 0.1 mg PO DAILY 11/04/21 04/15/22 lamoTRIgine [LaMICtal] 100 mg PO BID 11/04/21 04/15/22 LORazepam [Ativan] 0.5 mg PO BID PRN 01/20/22 04/15/22 Allergies Allergy/AdvReac Type Severity Reaction Status Date / Time No Known Allergies Allergy Verified 04/15/22 17:42 Review of Systems ROS Statement: Those systems with pertinent positive or pertinent negative responses have been documented in the HPI. Review of Systems: CONST: Denies fever EYES: Denies blurry vision ENT: Denies nasal congestion C/V: Denies Chest pain RESP: Denies shortness of breath GI: Denies abdominal pain : Denies dysuria SKIN: Denies rash. MSK: Denies joint pain. NEURO: Denies headache ROS Other: All systems not noted in ROS Statement are negative. Past Medical History Past Medical History: Cancer, Thyroid Disorder Additional Past Medical History / Comment(s): alcoholism, insomnia, past cervical cancer History of Any Multi-Drug Resistant Organisms: None Reported Past Surgical History: Orthopedic Surgery, Uterine Ablation Additional Past Surgical History / Comment(s): rhinoplasty, cervical cancer currently and skin cancer lymph node removed in the 6th grade, left wrist Past Anesthesia/Blood Transfusion Reactions: No Reported Reaction Past Psychological History: Anxiety, Bipolar, Depression Smoking Status: Never smoker Past Alcohol Use History: Daily Past Drug Use History: None Reported - Past Family History Father Additional Family Medical History / Comment(s): Father is age 57. Alcoholism, diverticulosis Mother Additional Family Medical History / Comment(s): Mother is alive at age 65 with no major medical problems. Brother(s) Additional Family Medical History / Comment(s): Patient has 2 brothers with no major medical problems. She does not have any sisters. She does not have any children. General Exam - General Exam Comments Initial Comments: General: Appears acutely intoxicated with alcohol. HEAD: Normal with no signs of head trauma. EYES: PERRLA, EOMI, conjunctiva normal, no discharge. ENT: Hearing grossly intact, normal oropharynx. RESPIRATORY: Clear breath sounds bilaterally. No wheezes, rales, or rhonchi. C/V: Regular rate and rhythm. S1 and S2 auscultated, no edema, peripheral pulses 2+ and intact throughout ABD: Abd is soft, nontender, nondistended EXT: Normal range of motion, no obvious deformity SKIN: No rashes or lesions observed on exposed skin. NEURO: Alert and oriented x 4. Cranial nerves II-XII intact. No focal sensory or strength deficits. No tremors. CIWA is 0 at this time. Limitations: no limitations Course Vital Signs 04/15/22 04/15/22 04/15/22 16:43 18:59 20:19 Temperature 98.5 F Pulse Rate 95 92 89 Respiratory 20 18 18 Rate Blood Pressure 129/72 118/82 111/62 O2 Sat by Pulse 99 95 97 Oximetry Medical Decision Making - Medical Decision Making Based on the patient's presentation and physical exam, she does appear acutely intact with alcohol. Has a history of alcohol withdrawals, alcohol withdrawal seizures, and possibly DTs. Seeking to safely detox. Does not plan on drinking more alcohol if she is discharged. We sat down and discussed at length if she would like to go home and continue drinking, [address] [facility] and it time to get into a detox program tomorrow or the next day. She is adamant she will not continue drinking. Therefore do not believe it is safe to discharge her home. She will require admission for monitoring, particularly with her history of alcohol withdrawal seizures and possible DTs.. She was in agreement this plan. Basic laboratory studies are unremarkable except for an alcohol level of 373. I discussed the case with the patient. She'll be started on Cipro protocol with phenobarb due to the Ativan shortage. Patient was in agreement with this plan. Patient will be admitted to the hospital. I spoke with the admitting team, NEY Romero of [facility] who accepted the patient. Patient was admitted in stable con dition. EKG showed no signs of acute ischemia. QT was within normal limits. - Lab Data Result diagrams: 04/15/22 17:49 04/15/22 17:49 Lab Results 04/15/22 04/15/22 Range/Units 17:49 17:49 WBC 6.0 (3.8-10.6) k/uL RBC 4.43 (3.80-5.40) m/uL Hgb 13.4 (11.4-16.0) gm/dL Hct 40.9 (34.0-46.0) % MCV 92.3 (80.0-100.0) fL MCH 30.2 (25.0-35.0) pg MCHC 32.8 (31.0-37.0) g/dL RDW 14.8 (11.5-15.5) % Plt Count 335 (150-450) k/uL MPV 7.1 Sodium 143 (137-145) mmol/L Potassium 4.2 (3.5-5.1) mmol/L Chloride 104 (98-107) mmol/L Carbon Dioxide 26 (22-30) mmol/L Anion Gap 13 mmol/L BUN 6 L (7-17) mg/dL Creatinine 0.72 (0.52-1.04) mg/dL Est GFR (CKD-EPI)AfAm >90 (>60 ml/min/1.73 sqM) Est GFR (CKD-EPI)NonAf >90 (>60 ml/min/1.73 sqM) Glucose 92 (74-99) mg/dL Calcium 8.5 (8.4-10.2) mg/dL Serum Alcohol 373 H* mg/dL - EKG Data -: EKG Interpreted by Me EKG Comments: 12-lead Electrocardiogram Interpretation Note EKG was reviewed and interpreted by myself. 12-lead ECG performed at 2006 is interpreted by me as revealing normal sinus rhythm at a rate of 85 beats per minute. [place] is normal. [place] interval is 109 ms, QRS duration is 81 ms, QTc is 387 ms.. There were no ST or T wave abnormalities to suggest myocardial isch emia or injury. R wave progression across the precordium was satisfactory. By my interpretation this EKG is non-diagnostic for acute ischemia. Disposition Clinical Impression: Alcohol intoxication, History of alcohol withdrawal delirium, History of seizure due to alcohol withdrawal Disposition: ADMITTED IP TO THIS HOSP Condition: Stable Time of Disposition: 19:00
[2022-04-15] MEDS: lamoTRIgine 100 MG TAB PO SCH (20:58)
[2022-04-15] MEDS: SODIUM CHLORIDE 0.9% 1,000 ML IV SCH (20:58)
[2022-04-15] MEDS ORDERED: QUEtiapine 100 MG TAB PO SCH (21:30)
[2022-04-15] MEDS: HEPARIN SODIUM,PORCINE/PF 5,000 UNIT/0.5 ML SYRINGE SQ SCH (23:27)
[2022-04-16] MEDS: SODIUM CHLORIDE 0.9% 1,000 ML IV SCH (03:07)
[2022-04-16] MEDS ORDERED: LEVOTHYROXINE 25 MCG TAB PO SCH (06:30)
[2022-04-16] MEDS ORDERED: PHENobarbitaL 16.2 MG TAB PO ONE ×4 (07:21→11:24)
[2022-04-16] MEDS: HEPARIN SODIUM,PORCINE/PF 5,000 UNIT/0.5 ML SYRINGE SQ SCH ×2 (08:09→17:38)
[2022-04-16] MEDS: lamoTRIgine 100 MG TAB PO SCH (08:10)
[2022-04-16] MEDS ORDERED: cloNIDine HCL 0.1 MG TAB PO SCH (09:00)
[2022-04-16 09:50] LABS: Basophils # (A) 0.05 X 10*3/uL (0.00-0.10); Basophils % (A) 1.1 %; Eosinophils # (A) 0.13 X 10*3/uL (0.04-0.35); Eosinophils % (A) 2.9 %; HCT 33.3 % (37.2-46.3); HGB 10.6 g/dL (12.0-15.0); Immature Grans, Automated 0.2 %; Lymphocytes # (A) 2.48 X 10*3/uL (0.90-5.00); Lymphocytes % (A) 56.2 %; MCHC 31.8 g/dL (32.0-37.0); MCV 91.2 fL (80.0-97.0); Mean Platelet Volume 9.4 fL (9.5-12.2); Monocytes # (A) 0.43 X 10*3/uL (0.20-1.00); Monocytes % (A) 9.8 %; NRBC Per 100 WBC 0 /100 WBCS (0.0-0.0); Neutrophils # (A) 1.31 X 10*3/uL (1.80-7.70); Neutrophils % (A) 29.8 %; Platelet Count 254 X 10*3/uL (140-440); RBC 3.65 X 10*6/uL (4.10-5.20); RDW 15.8 % (11.5-14.5); WBC 4.41 X 10*3/uL (4.50-10.00)
[2022-04-16 10:24] LABS: African American GFR (CKD) 129.2 (60.0-200.0); Anion Gap 14.6 mmol/L (10.00-18.00); BUN/Creat Ratio 9.57 Ratio (12.00-20.00); Blood Urea Nitrogen 6.7 mg/dL (9.0-27.0); Calcium 7.5 mg/dL (8.7-10.3); Carbon Dioxide 19.4 mmol/L (20.0-27.5); Non-African American GFR(CKD) 111.5 (60.0-200.0); Potassium 3.6 mmol/L (3.5-5.5)
[2022-04-16 11:34] VITALS: BP 118/72; PULSE 82; RESP 15; TEMP 98.2
[2022-04-16] MEDS: THIAMINE 100 MG TAB PO SCH ×2 (11:54→17:38)
[2022-04-16] MEDS ORDERED: THIAMINE 100 MG TAB PO SCH (12:00)
--- NOTE | 2022-04-16 13:27 | P.HPIM ---
History of Present Illness H&P Date: 04/16/22 This is a 36-year-old female presents to the emergency room with concern for alcohol intoxication alcohol level on admission was 373. Patient does have history of alcohol withdrawal seizure at the age of 28. Patient follows with Dr. Mely Fletcher in the primary care setting chronic conditions include history of cervical cancer, thyroid disorder, uterine ablation, anxiety, depression, bipolar. She has gone to alcohol rehab in the past. EKG on admission shows normal sinus rhythm with heart rate of 85, QT interval 387. Blood count was unremarkable, electrolyte panels within normal limits. Patient is admitted for observation for acute alcohol withdrawal and started on phenobarbital protocol. Patient admits to drinking 8-10 beers per day plus whiskey. She has gone 2 years sober, and recently had gone 6 months sober. Her last drink was yesterday afternoon, she does start a new job tomorrow and would like to be discharged today. She is still in the window for alcohol withdrawal, however patient has not had any symptoms overnight and would like to be discharged on oral librium taper. REVIEW OF SYSTEMS: CONSTITUTIONAL: No fever, no malaise, no fatigue. HEENT: No recent visual problems or hearing problems. Denied any sore throat. CARDIOVASCULAR: No chest pain, orthopnea, PND, no palpitations, no syncope. PULMONARY: No shortness of breath, no cough, no hemoptysis. GASTROINTESTINAL: No diarrhea, no nausea, no vomiting, no abdominal pain. NEUROLOGICAL: No headaches, no weakness, no numbness. HEMATOLOGICAL: Denies any bleeding or petechiae. GENITOURINARY: Denies any burning micturition, frequency, or urgency. MUSCULOSKELETAL/RHEUMATOLOGICAL: Denies any joint pain, swelling, or any muscle pain. ENDOCRINE: Denies any polyuria or polydipsia. The rest of the 14-point review of systems is negative. PHYSICAL EXAMINATION: GENERAL: The patient is alert and oriented x3, not in any acute distress. Well developed, well nourished. HEENT: Pupils are round and equally reacting to light. EOMI. No scleral icterus. No conjunctival pallor. Normocephalic, atraumatic. No pharyngeal erythema. No thyromegaly. CARDIOVASCULAR: S1 and S2 present. No murmurs, rubs, or gallops. PULMONARY: Chest is clear to auscultation, no wheezing or crackles. ABDOMEN: Soft, nontender, nondistended, normoactive bowel sounds. No palpable organomegaly. MUSCULOSKELETAL: No joint swelling or deformity. EXTREMITIES: No cyanosis, clubbing, or pedal edema. NEUROLOGICAL: Gross neurological examination did not reveal any focal deficits. SKIN: No rashes. Assessment and plan Assessment Acute alcohol intoxication History of chronic alcohol abuse History of alcohol withdrawal seizure in the past History of thyroid disorder History of anxiety/depression/bipolar History of cervical cancer history of uterine ablation GI prophylaxis DVT prophylaxis Full Code Plan Patient is admitted under observation status and will be monitored for acute alcohol withdrawal. Patient has verbalized a desire to quit alcohol. Clonidine has been stopped as she is normotensive. Patient will be discharged on oral librium taper. She is verbalizing a desire to quit drinking and states she has community resources for quitting and plans to begin AA meetings. Repeat CBC in 2-3 days outpatient. The impression and plan of care has been dictated by Heather Storm Nurse Practitioner as directed. Dr. Obed MD I have performed a history and physical examination and medical decision making of this patient, discussed the same with the dictator, and agree with the dictators assessment and plan as written, documented as a scribe. Based on total visit time, I have performed more than 50% of this visit. Past Medical History Past Medical History: Cancer, Thyroid Disorder Additional Past Medical History / Comment(s): alcoholism, past cervical cancer History of Any Multi-Drug Resistant Organisms: None Reported Past Surgical History: Orthopedic Surgery, Uterine Ablation Additional Past Surgical History / Comment(s): rhinoplasty, cervical cancer currently and skin cancer lymph node removed in the 6th grade, left wrist Past Anesthesia/Blood Transfusion Reactions: No Reported Reaction Past Psychological History: Anxiety, Bipolar, Depression Additional Psychological History / Comment(s): PT STATED CURRENTLY HAS NO THOUGHTS OF HARMING SELF BUT IN PAST 2 WEEKS HAD SOME THOUGHTS. DENIES FEELING HOPELESS. Smoking Status: Never smoker Past Alcohol Use History: Daily Additional Past Alcohol Use History / Comment(s): went to [place] for alcohol had been sober for 50 days. sober 100 days until 3 weeks ago Past Drug Use History: None Reported Additional Drug Use History / Comment(s): Patient states that she tried herion f or the first time on 01/08/16, unsure of amount and went unresponsive where she required CPR to bring her back to life per Patient. - Past Family History Father Additional Family Medical History / Comment(s): Father is age 57. Alcoholism, diverticulosis Mother Additional Family Medical History / Comment(s): Mother is alive at age 65 with no major medical problems. Brother(s) Additional Family Medical History / Comment(s): Patient has 2 brothers with no major medical problems. She does not have any sisters. She does not have any children. Medications and Allergies Home Medications Medication Instructions Recorded Confirmed Type Multivitamins, Thera [Multivitamin 1 tab PO DAILY 05/04/20 04/15/22 History (formulary)] QUEtiapine FUMARATE [SEROquel] 200 mg PO HS 05/04/20 04/15/22 History Levothyroxine Sodium [Synthroid] 25 mcg PO DAILY 11/04/21 04/15/22 History cloNIDine HCL [Catapres] 0.1 mg PO DAILY 11/04/21 04/15/22 History lamoTRIgine [LaMICtal] 100 mg PO BID 11/04/21 04/15/22 History LORazepam [Ativan] 0.5 mg PO BID PRN 01/20/22 04/15/22 History Allergies Allergy/AdvReac Type Severity Reaction Status Date / Time No Known Allergies Allergy Verified 04/15/22 17:42 Physical Exam Vitals: Vital Signs Temp Pulse Pulse Resp BP BP Pulse Ox 04/16/22 05:00 98 F 88 16 103/65 97 04/15/22 21:00 16 04/15/22 20:54 98.3 F 95 16 122/83 96 04/15/22 20:19 89 18 111/62 97 04/15/22 18:59 92 18 118/82 95 04/15/22 16:43 98.5 F 95 20 129/72 99 Intake and Output 04/15/22 04/16/22 04/16/22 22:59 06:59 14:59 Intake Total 1700 Balance 1700 Intake: Intake, IV Titration 1200 Amount Sodium Chloride 0.9% 1, 1200 000 ml @ 100 mls/hr IV . Q10H JAVIER Rx#:[id number] Oral 500 Other: Voiding Method Toilet # Voids 3 Weight 56.699 kg Results CBC & Chem 7: 04/16/22 05:07 04/16/22 05:07 Labs: Abnormal Lab Results - Last 24 Hours (Table) 04/15/22 Range/Units 17:49 BUN 6 L (7-17) mg/dL Serum Alcohol 373 H* mg/dL Thrombosis Risk Factor Assmnt - Choose All That Apply Any of the Below Risk Factors Present?: No Other Risk Factors: No Other congenital or acquired thrombophilia - If yes, enter type in comment: No Thrombosis Risk Factor Assessment Level: Very Low Risk Assessment and Plan Time with Patient: Less than 30
--- NOTE | 2022-04-16 14:09 | P.DS ---
Providers Date of admission: 04/15/22 19:26 Attending physician: Clive Grimaldo Primary care physician: Ra[facility] Course: Final Diagnosis Acute alcohol intoxication History of chronic alcohol abuse History of alcohol withdrawal seizure in the past History of thyroid disorder History of anxiety/depression/bipolar History of cervical cancer history of uterine ablation Full Code Discharge Disposition Patient stable for discharge home in guarded prognosis as last drink was about 24 hours ago. She is discharged home on oral librium taper and instructed that she cannot drink alcohol while taking this medication. Patient would like to stop drinking and states she has community resources and plans to attend . Hospital Course This is a pleasant 36 to feel with history of chronic alcohol abuse, thyroid disorder, anxiety depression bipolar. She presents to the hospital with an alcohol level of 436 and was started on phenobarbital protocol. She has not required any medication for withdrawal has not had any signs of acute alcohol withdrawal symptoms throughout the evening. Last drink was about 24 hours ago she admits to drinking 8-10 beers as well as whiskey daily. She has had episodes of sobriety up to 2 years and most recently 6 months. She does start a new job on Sunday and has a desire for alochol cessation and verbalizes she needs to quit drinking. She will be discharged today on oral librium taper. Follow up with PCP in 2-3 days and repeat CBC in 2-3 days. She denies chest pain, cough, shortness of breath. Denies hallucinations, nausea, vomiting. No tremors, no headache. Please see medical H&P for additional information. Thank you for allowing us to participate in the care of this patient. The impression and plan of care has been dictated by Heather Storm, Nurse Practitioner as directed. Dr. Obed MD I have performed a history and physical examination and medical decision making of this patient, discussed the same with the dictator, and agree with the dictators assessment and plan as written, documented as a scribe. Based on total visit time, I have performed more than 50% of this visit. Patient Condition at Discharge: Stable Plan - Discharge Summary Discharge Rx Participant: No New Discharge Prescriptions: New Thiamine [Vitamin B-1] 100 mg PO BID@1200,1700 #60 tab chlordiazePOXIDE HCl [Librium] 25 mg PO DIRECTED 6 Days #15 capsule Continue Multivitamins, Thera [Multivitamin (formulary)] 1 tab PO DAILY QUEtiapine FUMARATE [SEROquel] 200 mg PO HS Levothyroxine Sodium [Synthroid] 25 mcg PO DAILY lamoTRIgine [LaMICtal] 100 mg PO BID Discontinued cloNIDine HCL [Catapres] 0.1 mg PO DAILY LORazepam [Ativan] 0.5 mg PO BID PRN PRN Reason: Anxiety Discharge Medication List Multivitamins, Thera [Multivitamin (formulary)] 1 tab PO DAILY 05/04/20 [History] QUEtiapine FUMARATE [SEROquel] 200 mg PO HS 05/04/20 [History] Levothyroxine Sodium [Synthroid] 25 mcg PO DAILY 11/04/21 [History] lamoTRIgine [LaMICtal] 100 mg PO BID 11/04/21 [History] Thiamine [Vitamin B-1] 100 mg PO BID@1200,1700 #60 tab 04/16/22 [Rx] chlordiazePOXIDE HCl [Librium] 25 mg PO DIRECTED 6 Days #15 capsule 04/16/22 [Rx] Follow up Appointment(s)/Referral(s): Rahat Fletcher DO [Primary Care Provider] - 1-2 days Ambulatory/Diagnostic Orders: Complete Blood Count w/diff [LAB.AMB] Time Frame: 2 Days, Location: None Selected Patient Instructions/Handouts: Chlordiazepoxide (By mouth), Thiamine (By mouth), Alcohol Withdrawal (DC) Activity/Diet/Wound Care/Special Instructions: Do not drink alcohol while taking librium Complete taper Repeat complete blood count outpatient in 2-3 days Follow up with primary care in 2-3 days Discharge Disposition: HOME SELF-CARE
[2022-04-16] MEDS ORDERED: chlordiazePOXIDE 25 MG CAP PO STA (16:28)
== END 2022-04-16 17:58 | disposition home or self-care (01) ==
LOC: EC 16:29 → 5NMEDONC 19:26
PROVIDERS: ADMIT Hospitalist; ATTEND Hospitalist
DX: F10.129 Alcohol abuse with intoxication, unspecified (principal); G47.00 Insomnia, unspecified; E07.9 Disorder of thyroid, unspecified; F31.9 Bipolar disorder, unspecified; F41.9 Anxiety disorder, unspecified; Z79.890 Hormone replacement therapy; Z79.899 Other long term (current) drug therapy; Z85.41 Personal history of malignant neoplasm of cervix uteri; Z85.828 Personal history of other malignant neoplasm of skin; Y90.8 Blood alcohol level of 240 mg/100 ml or more; Z71.41 Alcohol abuse counseling and surveillance of alcoholic; Z81.1 Family history of alcohol abuse and dependence; Z83.79 Family history of other diseases of the digestive system
CPT/HCPCS: 96372 ×3; 99285; 36415; 93005; 80048 ×2; 85025; 85027; G0378 ×2; G0480; J3411; J2560; J1644 ×2; 80320

== ENCOUNTER 2023-07-16 09:41 | Emergency (ER) | payer OTHER ==
[2023-07-16] MEDS ORDERED: SODIUM CHLORIDE 0.9% 1,000 ML IV STA (10:00)
[2023-07-16] MEDS ORDERED: ONDANSETRON 4 MG/2 ML VIAL IVP STA ×2 (10:00→12:43)
--- NOTE | 2023-07-16 10:23 | ED ---
Seizure HPI - General Chief Complaint: Seizure Stated Complaint: Seizure Time Seen by Provider: 07/16/23 09:50 Source: patient, family, EMS, RN notes reviewed Mode of arrival: EMS Limitations: no limitations - History of Present Illness Initial Comments: This is a 37-year-old female who presents to the emergency department for a seizure. Patient was brought in by EMS for seizure witnessed by her boyfriend. This reportedly lasted 1-2 minutes while the patient was in bed. She did not hit her head or sustain any injuries aside from biting her lip. She does have a history of seizures often related to alcohol use. Believes that her last seizure was 3 months ago, however she told EMS that it was 1 month ago. She is not taking any antiseizure medication. Patient denies any recent alcohol use, however EMS noted multiple empty alcohol bottles lying around the house. Currently complaining of mild nausea but otherwise feels fine. MD Complaint: seizure - Related Data Home Medications Medication Instructions Recorded Confirmed Multivitamins, Thera [Multivitamin 1 tab PO DAILY 05/04/20 04/15/22 (formulary)] QUEtiapine FUMARATE [SEROquel] 200 mg PO HS 05/04/20 04/15/22 Levothyroxine Sodium [Synthroid] 25 mcg PO DAILY 11/04/21 04/15/22 lamoTRIgine [LaMICtal] 100 mg PO BID 11/04/21 04/15/22 Previous Rx's Medication Instructions Recorded Thiamine [Vitamin B-1] 100 mg PO BID@1200,1700 #60 tab 04/16/22 chlordiazePOXIDE HCl [Librium] 25 mg PO DIRECTED 6 Days #15 04/16/22 capsule Allergies Allergy/AdvReac Type Severity Reaction Status Date / Time No Known Allergies Allergy Verified 07/16/23 13:52 Review of Systems ROS Statement: Those systems with pertinent positive or pertinent negative responses have been documented in the HPI. ROS Other: All systems not noted in ROS Statement are negative. Past Medical History Past Medical History: Cancer, Thyroid Disorder Additional Past Medical History / Comment(s): alcoholism, past cervical cancer History of Any Multi-Drug Resistant Organisms: None Reported Past Surgical History: Orthopedic Surgery, Uterine Ablation Additional Past Surgical History / Comment(s): rhinoplasty, cervical cancer currently and skin cancer lymph node removed in the 6th grade, left wrist Past Anesthesia/Blood Transfusion Reactions: No Reported Reaction Past Psychological History: Anxiety, Bipolar, Depression Smoking Status: Never smoker Past Alcohol Use History: Daily Past Drug Use History: None Reported - Past Family History Father Additional Family Medical History / Comment(s): Father is age 57. Alcoholism, diverticulosis Mother Additional Family Medical History / Comment(s): Mother is alive at age 65 with no major medical problems. Brother(s) Additional Family Medical History / Comment(s): Patient has 2 brothers with no major medical problems. She does not have any sisters. She does not have any children. General Exam Limitations: no limitations General appearance: alert, in no apparent distress Head exam: Present: atraumatic, normocephalic, normal inspection Eye exam: Present: normal appearance, PERRL, EOMI. Absent: scleral icterus, conjunctival injection, periorbital swelling Respiratory exam: Present: normal lung sounds bilaterally. Absent: respiratory distress, wheezes, rales, rhonchi, stridor Cardiovascular Exam: Present: regular rate, normal rhythm, normal heart sounds. Absent: systolic murmur, diastolic murmur, rubs, gallop, clicks Neurological exam: Present: alert, oriented X3, CN II-XII intact Psychiatric exam: Present: normal affect, normal mood Skin exam: Present: warm, dry, intact, normal color. Absent: rash Course Vital Signs 07/16/23 07/16/23 07/16/23 09:46 10:41 12:52 Pulse Rate 97 99 98 Respiratory 18 18 18 Rate Blood Pressure 121/97 122/84 O2 Sat by Pulse 97 95 96 Oximetry Medical Decision Making - Medical Decision Making This is a 37-year-old female who presents to the emergency department for a seizure. Was pt. sent in by a medical professional or institution? @ -No Did you speak to anyone other than the patient for history? @ -EMS provided the majority of the information, with the patient saying that she currently felt fine aside from nausea and that she is not taking any seizure medication. Did you review nursing and triage notes? @ -Yes, and I agree, it is accurate with regards to the patient's symptoms. Were old charts reviewed? @ -No Differential Diagnosis? @ -Differential Seizure: Recurrent seizure disorder, febrile seizure, alcohol withdrawal, stimulants, meningitis, encephalitis, intercranial hemorrhage, intracranial tumor, stroke, eclampsia, thyrotoxicosis, hypocalcemia, hyponatremia, hypernatremia, hypomagnesemia, psychogenic, this is not meant to be an all-inclusive list. EKG interpreted by me (3pts min.)? @ -EKG interpreted by me demonstrating the following: Sinus tachycardia. Ventricular rate 101 beats per minute, MD interval 107 ms, QRS duration 82 ms, QTC 410 ms. X-rays interpreted by me (1pt min.)? @ -Not obtained CT interpreted by me (1pt min.)? @ -Not obtained U/S interpreted by me (1pt. min.)? @ -Not obtained What testing was considered but not performed? (CT, X-rays, U/S, labs)? Why? @ -None What meds were considered but not given? Why? @ -None Did you discuss the management of the patient with other professionals? @ -No Did you reconcile home meds? @ -No Was smoking cessation discussed for >3mins.? @ -No Was critical care preformed (if so, how long)? @ -No Were there social determinants of health that impacted care today? How? (Homelessness, low income, unemployed, alcoholism, drug addiction, transportation, low edu. Level, literacy, decrease access to med. care, retirement, rehab)? @ -Alcoholism leading to recurrent emergency department visits, causing seizures, and increasing her risk for health problems in general. Was there de-escalation of care discussed even if they declined? (Discuss DNR or withdrawal of care, Hospice)? @ -No What co-morbidities impacted this encounter? (DM, HTN, Smoking, COPD, CAD, Cancer, CVA, Hep., AIDS, mental health diagnosis, sleep apnea, morbid obesity)? @ -Alcoholism Was patient admitted / discharged? @ -Discharged. Lab work obtained revealing an elevated lactic acid of 5.2 consistent with recent seizure activity. Liver enzymes also elevated consistent with known history of alcohol abuse. Patient was postictal for a few minutes on arrival, but quickly returned to baseline. She was given IV fluids and zofran with significant relief in symptoms. She does have a history of seizures when going through withdrawals. Current alcohol level is <10. Per EMS, her house was full of empty liquor bottles. Patient does admit to having some alcohol to drink last night and nothing today. Given that she remained seizure free without withdrawal symptoms in the emergency department, patient and her family were comfortable with discharge home. They were given information for neurology follow up, as family requested further testing for seizures, in the event they were not related to alcohol withdrawals. Patient advised that she cannot drive for 6 months following seizure activities. Patient expresses understanding and was discharged home with family in stable condition. Undiagnosed new problem with uncertain prognosis? @ -None Drug Therapy requiring intensive monitoring for toxicity (Heparin, Nitro, Insulin, Cardizem)? @ -None Were any procedures done? @ -None Diagnosis/symptom? @ -Seizure Acute, or Chronic, or Acute on Chronic? @ -Acute Uncomplicated (without systemic symptoms) or Complicated (systemic symptoms)? @ -Uncomplicated Side effects of treatment? @ -None Exacerbation, Progression, or Severe Exacerbation] @ -Not applicable Poses a threat to life or bodily function? @ -Unlikely Return precautions reviewed in depth, the patient is instructed to return to the emergency department with any new, worsening, or concerning symptoms. Patient verbalized understanding. This case was discussed in detail with the attending ED physician, Dr. Parekh. Presentation, findings, and treatment plan discussed in detail as well. - Lab Data Result diagrams: 07/16/23 10:37 07/16/23 10:37 Lab Results 07/16/23 07/16/23 07/16/23 Range/Units 10:37 10:37 10:37 WBC 9.2 (3.8-10.6) k/uL RBC 3.98 (3.80-5.40) m/uL Hgb 12.2 (11.4-16.0) gm/dL Hct 37.2 (34.0-46.0) % MCV 93.5 (80.0-100.0) fL MCH 30.6 (25.0-35.0) pg MCHC 32.8 (31.0-37.0) g/dL RDW 16.6 H (11.5-15.5) % Plt Count 285 (150-450) k/uL MPV 7.8 Neutrophils % 91 % Lymphocytes % 5 % Monocytes % 3 % Eosinophils % 0 % Basophils % 0 % Neutrophils # 8.4 H (1.3-7.7) k/uL Lymphocytes # 0.5 L (1.0-4.8) k/uL Monocytes # 0.3 (0-1.0) k/uL Eosinophils # 0.0 (0-0.7) k/uL Basophils # 0.0 (0-0.2) k/uL Anisocytosis Slight Sodium 135 L (137-145) mmol/L Potassium 4.2 (3.5-5.1) mmol/L Chloride 96 L (98-107) mmol/L Carbon Dioxide 20 L (22-30) mmol/L Anion Gap 19 mmol/L BUN 7 (7-17) mg/dL Creatinine 0.61 (0.52-1.04) mg/dL Est GFR (CKD-EPI)AfAm >90 (>60 ml/min/1.73 sqM) Est GFR (CKD-EPI)NonAf >90 (>60 ml/min/1.73 sqM) Glucose 155 H (74-99) mg/dL Lactic Ac Sepsis Rflx Plasma Lactic Acid Gerald (0.7-2.0) mmol/L Calcium 10.2 (8.4-10.2) mg/dL Total Bilirubin 1.3 (0.2-1.3) mg/dL AST 264 H (14-36) U/L ALT 124 H (4-34) U/L Alkaline Phosphatase 162 H (38-126) U/L Total Protein 8.9 H (6.3-8.2) g/dL Albumin 4.5 (3.5-5.0) g/dL TSH 1.500 (0.465-4.680) mIU/L HCG, Qual Not Detected Urine Color Yellow Urine Appearance Cloudy H (Clear) Urine pH 5.5 (5.0-8.0) Ur Specific [place] 1.019 (1.001-1.035) Urine Protein 1+ H (Negative) Urine Glucose (UA) Negative (Negative) Urine Ketones 2+ H (Negative) Urine Blood Trace H (Negative) Urine Nitrite Negative (Negative) Urine Bilirubin Negative (Negative) Urine Urobilinogen <2.0 (<2.0) mg/dL Ur Leukocyte Esterase Negative (Negative) Urine RBC <1 (0-5) /hpf Urine WBC <1 (0-5) /hpf Ur Squamous Epith Cells 10 H (0-4) /hpf Hyaline Casts 7 H (0-2) /lpf Urine Mucus Few H (None) /hpf Urine Opiates Screen Not Detected (NotDetected) Ur Oxycodone Screen Not Detected (NotDetected) Urine Methadone Screen Not Detected (NotDetected) Ur Propoxyphene Screen Not Detected (NotDetected) Ur Barbiturates Screen Not Detected (NotDetected) U Tricyclic Antidepress Detected H (NotDetected) Ur Phencyclidine Scrn Not Detected (NotDetected) Ur Amphetamines Screen Not Detected (NotDetected) U Methamphetamines Scrn Not Detected (NotDetected) U Benzodiazepines Scrn Not Detected (NotDetected) Urine Cocaine Screen Not Detected (NotDetected) U Marijuana (THC) Screen Not Detected (NotDetected) Serum Alcohol <10 mg/dL 07/16/23 07/16/23 Range/Units 10:37 11:20 WBC (3.8-10.6) k/uL RBC (3.80-5.40) m/uL Hgb (11.4-16.0) gm/dL Hct (34.0-46.0) % MCV (80.0-100.0) fL MCH (25.0-35.0) pg MCHC (31.0-37.0) g/dL RDW (11.5-15.5) % Plt Count (150-450) k/uL MPV Neutrophils % % Lymphocytes % % Monocytes % % Eosinophils % % Basophils % % Neutrophils # (1.3-7.7) k/uL Lymphocytes # (1.0-4.8) k/uL Monocytes # (0-1.0) k/uL Eosinophils # (0-0.7) k/uL Basophils # (0-0.2) k/uL Anisocytosis Sodium (137-145) mmol/L Potassium (3.5-5.1) mmol/L Chloride (98-107) mmol/L Carbon Dioxide (22-30) mmol/L Anion Gap mmol/L BUN (7-17) mg/dL Creatinine (0.52-1.04) mg/dL Est GFR (CKD-EPI)AfAm (>60 ml/min/1.73 sqM) Est GFR (CKD-EPI)NonAf (>60 ml/min/1.73 sqM) Glucose (74-99) mg/dL Lactic Ac Sepsis Rflx Y Plasma Lactic Acid Gerald 5.2 H* (0.7-2.0) mmol/L Calcium (8.4-10.2) mg/dL Total Bilirubin (0.2-1.3) mg/dL AST (14-36) U/L ALT (4-34) U/L Alkaline Phosphatase (38-126) U/L Total Protein (6.3-8.2) g/dL Albumin (3.5-5.0) g/dL TSH (0.465-4.680) mIU/L HCG, Qual Urine Color Urine Appearance (Clear) Urine pH (5.0-8.0) Ur Specific [place] (1.001-1.035) Urine Protein (Negative) Urine Glucose (UA) (Negative) Urine Ketones (Negative) Urine Blood (Negative) Urine Nitrite (Negative) Urine Bilirubin (Negative) Urine Urobilinogen (<2.0) mg/dL Ur Leukocyte Esterase (Negative) Urine RBC (0-5) /hpf Urine WBC (0-5) /hpf Ur Squamous Epith Cells (0-4) /hpf Hyaline Casts (0-2) /lpf Urine Mucus (None) /hpf Urine Opiates Screen (NotDetected) Ur Oxycodone Screen (NotDetected) Urine Methadone Screen (NotDetected) Ur Propoxyphene Screen (NotDetected) Ur Barbiturates Screen (NotDetected) U Tricyclic Antidepress (NotDetected) Ur Phencyclidine Scrn (NotDetected) Ur Amphetamines Screen (NotDetected) U Methamphetamines Scrn (NotDetected) U Benzodiazepines Scrn (NotDetected) Urine Cocaine Screen (NotDetected) U Marijuana (THC) Screen (NotDetected) Serum Alcohol mg/dL Disposition Clinical Impression: Generalized seizure, Alcohol abuse Disposition: HOME SELF-CARE Instructions (If sedation given, give patient instructions): Seizure/Epilepsy Discharge Instructions & Follow-Up, Recurrent Seizures in Adults (ED) Additional Instructions: Return to the emergency department with any new, worsening, or concerning symptoms. You can contact the neurologist offices as listed below for a follow- up appointment and further evaluation of ongoing seizures. You cannot drive for 6 months following seizure activity. Follow up with your primary care provider in 1-2 days. Is patient prescribed a controlled substance at d/c from ED?: No Referrals: Rahat Fletcher DO [Primary Care Provider] - 1-2 days Chaz Garcia DO [STAFF PHYSICIAN] - 1-2 days Arvin Tucker MD [Medical Doctor] - 1-2 days
[2023-07-16 10:33] VITALS: RESP 18
[2023-07-16 10:55] LABS: Anisocytosis Slight; Basophils % (A) 0 %; Eosinophils % (A) 0 %; HCT 37.2 % (34.0-46.0); HGB 12.2 gm/dL (11.4-16.0); Lymphocytes # (A) 0.5 k/uL (1.0-4.8); Lymphocytes % (A) 5 %; MCH 30.6 pg (25.0-35.0); MCHC 32.8 g/dL (31.0-37.0); MCV 93.5 fL (80.0-100.0); Mean Platelet Volume 7.8; Monocytes # (A) 0.3 k/uL (0-1.0); Monocytes % (A) 3 %; Neutrophils # (A) 8.4 k/uL (1.3-7.7); Neutrophils % (A) 91 %; Platelet Count 285 k/uL (150-450); RBC 3.98 m/uL (3.80-5.40); RDW 16.6 % (11.5-15.5); WBC 9.2 k/uL (3.8-10.6)
[2023-07-16 11:09] LABS: Appearance,Urine Cloudy (Clear); Bilirubin,Urine Negative (Negative); Blood,Urine Trace (Negative); Color,Urine Yellow; Glucose,Urine (UA) Negative (Negative); Hyaline Casts,Urine 7 /lpf (0-2); Ketones,Urine 2+ (Negative); Leukocyte Esterase,Urine Negative (Negative); Mucus,Urine Few /hpf; Nitrite,Urine Negative (Negative); PH, Urine 5.5 (5.0-8.0); Protein,Urine 1+ (Negative); RBC,Urine <1 /hpf (0-5); Specific Gravity,Urine 1.019 (1.001-1.035); Squamous Epithelial Cell,Urine 10 /hpf (0-4); Urobilinogen,Urine <2.0 mg/dL (<2.0); WBC,Urine <1 /hpf (0-5)
[2023-07-16 11:15] LABS: Amphetamine Screen,Urine Not Detected (NotDetected); Barbiturate Screen,Urine Not Detected (NotDetected); Benzodiazepines Screen,Urine Not Detected (NotDetected); Cocaine Screen,Urine Not Detected (NotDetected); Methadone Screen, Urine Not Detected (NotDetected); Opiate Screen,Urine Not Detected (NotDetected); Oxycodone Screen, Urine Not Detected (NotDetected); Phencyclidine Screen,Urine Not Detected (NotDetected); Tricyclic Antidepressant,Urine Detected (NotDetected); Urn Cannabinoid Scrn Not Detected (NotDetected)
[2023-07-16 11:17] LABS: ALT 124 U/L (4-34); AST 264 U/L (14-36); African American GFR (CKD) >90 (>60 ml/min/1.73 sqM); Albumin 4.5 g/dL (3.5-5.0); Alcohol <10 mg/dL; Alkaline Phosphatase 162 U/L (38-126); Anion Gap 19 mmol/L; Blood Urea Nitrogen 7 mg/dL (7-17); Calcium 10.2 mg/dL (8.4-10.2); Carbon Dioxide 20 mmol/L (22-30); Chloride 96 mmol/L (98-107); Glucose 155 mg/dL (74-99); Non-African American GFR(CKD) >90 (>60 ml/min/1.73 sqM); Potassium 4.2 mmol/L (3.5-5.1); Sodium 135 mmol/L (137-145); Total Bilirubin 1.3 mg/dL (0.2-1.3); Total Protein 8.9 g/dL (6.3-8.2)
[2023-07-16 12:15] LABS: HCG,Qualitative Serum Not Detected
[2023-07-16] MEDS ORDERED: ONDANSETRON 4 MG ODT STARTER PACK 2 TAB BTL PO STA (12:32)
[2023-07-16 13:07] VITALS: BP 122/84; PULSE 98
== END 2023-07-16 12:59 | disposition home or self-care (01) ==
LOC: EC 09:41
DX: G40.409 Other generalized epilepsy and epileptic syndromes, not intractable, without status epilepticus (principal); F10.10 Alcohol abuse, uncomplicated; E07.9 Disorder of thyroid, unspecified; F41.9 Anxiety disorder, unspecified; F31.9 Bipolar disorder, unspecified; Z79.890 Hormone replacement therapy; Z79.899 Other long term (current) drug therapy
CPT/HCPCS: 36415; 80053; 84443; 83605; 85025; 81001; 84703; 80306; 99284; 96374; 96376; 96361 ×2; G0480; J2405; S0119; 80320

== ENCOUNTER 2024-03-05 17:41 | Emergency (ER) | payer OTHER ==
[2024-03-05] MEDS ORDERED: LORazepam 1 MG TAB PO PRN ×3 (17:53)
[2024-03-05] MEDS ORDERED: LORazepam 0.5 MG TAB PO PRN (17:53)
[2024-03-05] MEDS ORDERED: LORazepam 2 MG/ML INJ IV PRN ×3 (17:53)
--- NOTE | 2024-03-05 18:00 | ED ---
Alcohol HPI - General Chief Complaint: Alcohol Stated Complaint: ETOH Time Seen by Provider: 03/05/24 17:57 Source: patient, RN notes reviewed Mode of arrival: EMS Limitations: no limitations - History of Present Illness Initial Comments: This is a 38-year-old female who presents emergency department via EMS for alcohol with drawl. Patient states that she drank a pint of fireball and a 32 dose of beer this afternoon with her last drink at around 1400. Patient has a history of alcohol abuse and has been to inpatient rehabilitation at [facility]. She reports history of alcohol withdrawal seizures. Currently patient states that she is anxious and has been tremulous over the past 2 days. She has a history of bipolar 1 disorder and follows with her therapist. She takes Seroquel, clonidine, and Xanax. - Related Data Home Medications Medication Instructions Recorded Confirmed QUEtiapine FUMARATE [SEROquel] 200 mg PO HS 05/04/20 03/05/24 Levothyroxine Sodium [Synthroid] 25 mcg PO DAILY 11/04/21 03/05/24 DULoxetine HCL [Cymbalta] 20 mg PO BID 03/05/24 03/05/24 LORazepam [Ativan] 0.5 mg PO BID 03/05/24 03/05/24 Tab-A-Omhamud (Multivitamin With 1 tab PO DAILY 03/05/24 03/05/24 Folic Acid 400 Mcg) cloNIDine HCL [Catapres] 0.1 mg PO DAILY 03/05/24 03/05/24 Allergies Allergy/AdvReac Type Severity Reaction Status Date / Time No Known Allergies Allergy Verified 03/05/24 19:24 Review of Systems ROS Statement: Those systems with pertinent positive or pertinent negative responses have been documented in the HPI. ROS Other: All systems not noted in ROS Statement are negative. Past Medical History Past Medical History: Cancer, Thyroid Disorder Additional Past Medical History / Comment(s): alcoholism, past cervical cancer History of Any Multi-Drug Resistant Organisms: None Reported Past Surgical History: Orthopedic Surgery, Uterine Ablation Additional Past Surgical History / Comment(s): rhinoplasty, cervical cancer currently and skin cancer lymph node removed in the 6th grade, left wrist Past Anesthesia/Blood Transfusion Reactions: No Reported Reaction Past Psychological History: Anxiety, Bipolar, Depression Smoking Status: Never smoker Past Alcohol Use History: Daily Past Drug Use History: None Reported - Past Family History Father Additional Family Medical History / Comment(s): Father is age 57. Alcoholism, diverticulosis Mother Additional Family Medical History / Comment(s): Mother is alive at age 65 with no major medical problems. Brother(s) Additional Family Medical History / Comment(s): Patient has 2 brothers with no major medical problems. She does not have any sisters. She does not have any children. General Exam Limitations: no limitations General appearance: alert, in no apparent distress, appears intoxicated, anxious Head exam: Present: atraumatic, normocephalic, normal inspection Eye exam: Present: normal appearance, PERRL, EOMI. Absent: scleral icterus, conjunctival injection, periorbital swelling ENT exam: Present: normal exam, mucous membranes moist Neck exam: Present: normal inspection. Absent: tenderness, meningismus, lymphadenopathy Respiratory exam: Present: normal lung sounds bilaterally. Absent: respiratory distress, wheezes, rales, rhonchi, stridor Cardiovascular Exam: Present: regular rate, normal rhythm, tachycardia, normal heart sounds. Absent: systolic murmur, diastolic murmur, rubs, gallop, clicks GI/Abdominal exam: Present: soft, normal bowel sounds. Absent: distended, tenderness, guarding, rebound, rigid Extremities exam: Present: normal inspection, full ROM, normal capillary refill. Absent: tenderness, pedal edema, joint swelling, calf tenderness Back exam: Present: normal inspection Neurological exam: Present: alert, oriented X3, CN II-XII intact, other (Mildly tremulous) Psychiatric exam: Present: normal affect, normal mood Skin exam: Present: warm, dry, intact, normal color. Absent: rash Course Vital Signs 03/05/24 03/05/24 17:48 19:37 Temperature 98.5 F Pulse Rate 112 H 97 Respiratory 16 18 Rate Blood Pressure 127/79 130/93 O2 Sat by Pulse 93 L 98 Oximetry Medical Decision Making - Medical Decision Making Was pt. sent in by a medical professional or institution (, PA, ELECTRONIC NEWS GATHERING CAMERA PERSON, urgent care, hospital, or halfway...) When possible be specific @ -No Did you speak to anyone other than the patient for history (EMS, parent, family, police, friend...)? What history was obtained from this source @ -Spoke with the patient's father who is at bedside and states that patient has a history of alcohol abuse and follows with a therapist for bipolar 1 disorder. Father is unaware of what medications the patient is currently on. Did you review nursing and triage notes (agree or disagree)? Why? @ -I reviewed and agree with nursing and triage notes Were old charts reviewed (outside hosp., previous of the patient, EMS record, ol d EKG, old radiological studies, urgent care reports/EKG's, halfway records)? Report findings @ Patient's chart note from 07/16/2023 when she reported to the emergency department for a seizure, it was noted that the patient left AGAINST MEDICAL ADVICE. Differential Diagnosis (chest pain, altered mental status, abdominal pain women, abdominal pain men, vaginal bleeding, weakness, fever, dyspnea, syncope, headache, dizziness, GI bleed, back pain, seizure, CVA, palpatations, mental health, musculoskeletal)? @ -Alcohol withdrawal, seizure, delirium tremens, electrolyte abnormalities, anxiety, bipolar disorder this list is not all inclusive. EKG interpreted by me (3pts min.). @ -none X-rays interpreted by me (1pt min.). @ -None done CT interpreted by me (1pt min.). @ -None done U/S interpreted by me (1pt. min.). @ -None done What testing was considered but not performed or refused? (CT, X-rays, U/S, labs)? Why? @ -None What meds were considered but not given or refused? Why? @ -None Did you discuss the management of the patient with other professionals (birgit cook i.e. , PA, ELECTRONIC NEWS GATHERING CAMERA PERSON, lab, RT, psych nurse, social science analyst, clinical audiologist, teacher, correctional officer, case specialist)? Give summary @ -[facility] for the patient for alcohol withdrawal. Discussed that patient is started on CIWA protocol and electrolytes will be replaced. Patient was accepted for admission. Was smoking cessation discussed for >3mins.? @ -No Was critical care preformed (if so, how long)? @ -No Were there social determinants of health that impacted care today? How? (Homelessness, low income, unemployed, alcoholism, drug addiction, transportation, low edu. Level, literacy, decrease access to med. care, long-term, rehab)? @ -alcohol abuse was the main component of today's visit due to patient having withdrawal symptoms and will be admitted for alcohol withdrawal. Was there de-escalation of care discussed even if they declined (Discuss DNR or withdrawal of care, Hospice)? DNR status @ -No What co-morbidities impacted this encounter? (DM, HTN, Smoking, COPD, CAD, Cancer, CVA, ARF, Chemo, Hep., AIDS, mental health diagnosis, sleep apnea, morbid obesity)? @ -None Was patient admitted / discharged? Hospital course, mention meds given and route, prescriptions, significant lab abnormalities, going to OR and other pertinent info. @ -Admitted. 38-year-old female with alcohol abuse. On examination patient has noted to be mildly tremulous and anxious. Additionally her last drink of alcohol was at 1400 today. Patient was placed on CIWA protocol and labs ordered including CBC, CMP, magnesium, phosphorus, ammonium, alcohol, and urinalysis. Patient will be admitted to internal medicine, [facility], for alcohol withdrawal. Undiagnosed new problem with uncertain prognosis? @ -No Drug Therapy requiring intensive monitoring for toxicity (Heparin, Nitro, Insulin, Cardizem)? @ -No Were any procedures done? @ -No Diagnosis/symptom? @ -alcohol withdrawal Acute, or Chronic, or Acute on Chronic? @ -Acute Uncomplicated (without systemic symptoms) or Complicated (systemic symptoms)? @ -Complicated Side effects of treatment? @ -No Exacerbation, Progression, or Severe Exacerbation? @ -No Poses a threat to life or bodily function? How? (Chest pain, USA, [place], pneumonia, PE, COPD, DKA, ARF, appy, cholecystitis, CVA, Diverticulitis, Homicidal, Suicidal, threat to staff... and all critical care pts) @ -potentially, untreated alcohol withdrawal can lead to potential seizures and . - Lab Data Result diagrams: 03/05/24 18:04 03/05/24 18:04 Lab Results 03/05/24 03/05/24 03/05/24 Range/Units 18:04 18:04 18:04 WBC 9.9 (3.8-10.6) k/uL RBC 4.87 (3.80-5.40) m/uL Hgb 14.4 (11.4-16.0) gm/dL Hct 44.1 (34.0-46.0) % MCV 90.6 (80.0-100.0) fL MCH 29.5 (25.0-35.0) pg MCHC 32.6 (31.0-37.0) g/dL RDW 14.2 (11.5-15.5) % Plt Count 541 H (150-450) k/uL MPV 7.2 Neutrophils % 48 % Lymphocytes % 45 % Monocytes % 4 % Eosinophils % 1 % Basophils % 1 % Neutrophils # 4.7 (1.3-7.7) k/uL Lymphocytes # 4.4 (1.0-4.8) k/uL Monocytes # 0.4 (0-1.0) k/uL Eosinophils # 0.1 (0-0.7) k/uL Basophils # 0.1 (0-0.2) k/uL Sodium 145 (137-145) mmol/L Potassium 3.8 (3.5-5.1) mmol/L Chloride 112 H (98-107) mmol/L Carbon Dioxide 19 L (22-30) mmol/L Anion Gap 14 mmol/L BUN 2 L (7-17) mg/dL Creatinine 0.65 (0.52-1.04) mg/dL Est GFR (CKD-EPI)AfAm >90 (>60 ml/min/1.73 sqM) Est GFR (CKD-EPI)NonAf >90 (>60 ml/min/1.73 sqM) Glucose 102 H (74-99) mg/dL Calcium 9.5 (8.4-10.2) mg/dL Phosphorus 3.8 (2.5-4.5) mg/dL Magnesium 2.0 (1.6-2.3) mg/dL Total Bilirubin 0.6 (0.2-1.3) mg/dL AST 58 H (14-36) U/L ALT 19 (4-34) U/L Alkaline Phosphatase 84 (38-126) U/L Total Protein 8.7 H (6.3-8.2) g/dL Albumin 4.6 (3.5-5.0) g/dL Amylase 73 (30-110) U/L Lipase 526 H (23-300) U/L Urine Color Colorless Urine Appearance Cloudy H (Clear) Urine pH 5.5 (5.0-8.0) Ur Specific [place] 1.003 (1.001-1.035) Urine Protein Negative (Negative) Urine Glucose (UA) Negative (Negative) Urine Ketones Negative (Negative) Urine Blood Large H (Negative) Urine Nitrite Negative (Negative) Urine Bilirubin Negative (Negative) Urine Urobilinogen <2.0 (<2.0) mg/dL Ur Leukocyte Esterase Moderate H (Negative) Urine RBC 2 (0-5) /hpf Urine WBC 5 (0-5) /hpf Ur Squamous Epith Cells <1 (0-4) /hpf Urine Bacteria Occasional H (None) /hpf Urine Mucus Rare H (None) /hpf Urine HCG, Qual (Not Detectd) Urine Opiates Screen Not Detected (NotDetected) Ur Oxycodone Screen Not Detected (NotDetected) Urine Methadone Screen Not Detected (NotDetected) Ur Barbiturates Screen Not Detected (NotDetected) U Tricyclic Antidepress Detected H (NotDetected) Ur Phencyclidine Scrn Not Detected (NotDetected) Ur Amphetamines Screen Not Detected (NotDetected) U Methamphetamines Scrn Not Detected (NotDetected) U Benzodiazepines Scrn Not Detected (NotDetected) Urine Cocaine Screen Not Detected (NotDetected) U Marijuana (THC) Screen Not Detected (NotDetected) Serum Alcohol 316 H* mg/dL 03/05/24 Range/Units 18:04 WBC (3.8-10.6) k/uL RBC (3.80-5.40) m/uL Hgb (11.4-16.0) gm/dL Hct (34.0-46.0) % MCV (80.0-100.0) fL MCH (25.0-35.0) pg MCHC (31.0-37.0) g/dL RDW (11.5-15.5) % Plt Count (150-450) k/uL MPV Neutrophils % % Lymphocytes % % Monocytes % % Eosinophils % % Basophils % % Neutrophils # (1.3-7.7) k/uL Lymphocytes # (1.0-4.8) k/uL Monocytes # (0-1.0) k/uL Eosinophils # (0-0.7) k/uL Basophils # (0-0.2) k/uL Sodium (137-145) mmol/L Potassium (3.5-5.1) mmol/L Chloride (98-107) mmol/L Carbon Dioxide (22-30) mmol/L Anion Gap mmol/L BUN (7-17) mg/dL Creatinine (0.52-1.04) mg/dL Est GFR (CKD-EPI)AfAm (>60 ml/min/1.73 sqM) Est GFR (CKD-EPI)NonAf (>60 ml/min/1.73 sqM) Glucose (74-99) mg/dL Calcium (8.4-10.2) mg/dL Phosphorus (2.5-4.5) mg/dL Magnesium (1.6-2.3) mg/dL Total Bilirubin (0.2-1.3) mg/dL AST (14-36) U/L ALT (4-34) U/L Alkaline Phosphatase (38-126) U/L Total Protein (6.3-8.2) g/dL Albumin (3.5-5.0) g/dL Amylase (30-110) U/L Lipase (23-300) U/L Urine Color Urine Appearance (Clear) Urine pH (5.0-8.0) Ur Specific [place] (1.001-1.035) Urine Protein (Negative) Urine Glucose (UA) (Negative) Urine Ketones (Negative) Urine Blood (Negative) Urine Nitrite (Negative) Urine Bilirubin (Negative) Urine Urobilinogen (<2.0) mg/dL Ur Leukocyte Esterase (Negative) Urine RBC (0-5) /hpf Urine WBC (0-5) /hpf Ur Squamous Epith Cells (0-4) /hpf Urine Bacteria (None) /hpf Urine Mucus (None) /hpf Urine HCG, Qual Not Detected (Not Detectd) Urine Opiates Screen (NotDetected) Ur Oxycodone Screen (NotDetected) Urine Methadone Screen (NotDetected) Ur Barbiturates Screen (NotDetected) U Tricyclic Antidepress (NotDetected) Ur Phencyclidine Scrn (NotDetected) Ur Amphetamines Screen (NotDetected) U Methamphetamines Scrn (NotDetected) U Benzodiazepines Scrn (NotDetected) Urine Cocaine Screen (NotDetected) U Marijuana (THC) Screen (NotDetected) Serum Alcohol mg/dL Disposition Clinical Impression: Alcohol abuse, Alcohol abuse with withdrawal Disposition: ADMITTED IP TO THIS [facility] Condition: Good Is patient prescribed a controlled substance at d/c from ED?: No Decision to Admit Reason: Admit from EC Decision Date: 03/05/24 Decision Time: 17:30
[2024-03-05 18:36] VITALS: TEMP 98.5
[2024-03-05] MEDS: THIAMINE 100 MG/ML 2 ML VIAL IM STA (18:36)
[2024-03-05] MEDS: LORazepam 2 MG/ML INJ IV STA (18:37)
[2024-03-05] MEDS: SODIUM CHLORIDE 0.9% 1,000 ML IV STA (18:42)
[2024-03-05 18:48] LABS: Amphetamine Screen,Urine Not Detected (NotDetected); Barbiturate Screen,Urine Not Detected (NotDetected); Benzodiazepines Screen,Urine Not Detected (NotDetected); Cocaine Screen,Urine Not Detected (NotDetected); Methadone Screen, Urine Not Detected (NotDetected); Opiate Screen,Urine Not Detected (NotDetected); Oxycodone Screen, Urine Not Detected (NotDetected); Phencyclidine Screen,Urine Not Detected (NotDetected); Tricyclic Antidepressant,Urine Detected (NotDetected); Urn Cannabinoid Scrn Not Detected (NotDetected)
[2024-03-05 19:03] LABS: Basophils # (A) 0.1 k/uL (0-0.2); Basophils % (A) 1 %; Eosinophils # (A) 0.1 k/uL (0-0.7); Eosinophils % (A) 1 %; HCT 44.1 % (34.0-46.0); HGB 14.4 gm/dL (11.4-16.0); Lymphocytes # (A) 4.4 k/uL (1.0-4.8); Lymphocytes % (A) 45 %; MCH 29.5 pg (25.0-35.0); MCHC 32.6 g/dL (31.0-37.0); MCV 90.6 fL (80.0-100.0); Mean Platelet Volume 7.2; Monocytes # (A) 0.4 k/uL (0-1.0); Monocytes % (A) 4 %; Neutrophils # (A) 4.7 k/uL (1.3-7.7); Neutrophils % (A) 48 %; Platelet Count 541 k/uL (150-450); RBC 4.87 m/uL (3.80-5.40); RDW 14.2 % (11.5-15.5); WBC 9.9 k/uL (3.8-10.6)
[2024-03-05] MEDS ORDERED: NALOXONE 0.4 MG/ML 1 ML VIAL IV PRN (19:09)
[2024-03-05] MEDS ORDERED: IBUPROFEN 400 MG TAB PO PRN (19:09)
[2024-03-05] MEDS ORDERED: ACETAMINOPHEN TAB 325 MG TAB PO PRN (19:09)
[2024-03-05 19:20] LABS: ALT 19 U/L (4-34); AST 58 U/L (14-36); African American GFR (CKD) >90 (>60 ml/min/1.73 sqM); Albumin 4.6 g/dL (3.5-5.0); Alkaline Phosphatase 84 U/L (38-126); Amylase 73 U/L (30-110); Anion Gap 14 mmol/L; Blood Urea Nitrogen 2 mg/dL (7-17); Calcium 9.5 mg/dL (8.4-10.2); Carbon Dioxide 19 mmol/L (22-30); Chloride 112 mmol/L (98-107); Glucose 102 mg/dL (74-99); Lipase 526 U/L (23-300); Non-African American GFR(CKD) >90 (>60 ml/min/1.73 sqM); Phosphorus 3.8 mg/dL (2.5-4.5); Potassium 3.8 mmol/L (3.5-5.1); Sodium 145 mmol/L (137-145); Total Bilirubin 0.6 mg/dL (0.2-1.3); Total Protein 8.7 g/dL (6.3-8.2)
[2024-03-05 19:31] LABS: Alcohol 316 mg/dL
[2024-03-05 20:05] LABS: Appearance,Urine Cloudy (Clear); Bacteria,Urine Occasional /hpf; Bilirubin,Urine Negative (Negative); Blood,Urine Large (Negative); Color,Urine Colorless; Glucose,Urine (UA) Negative (Negative); Ketones,Urine Negative (Negative); Leukocyte Esterase,Urine Moderate (Negative); Mucus,Urine Rare /hpf; Nitrite,Urine Negative (Negative); PH, Urine 5.5 (5.0-8.0); Protein,Urine Negative (Negative); RBC,Urine 2 /hpf (0-5); Specific Gravity,Urine 1.003 (1.001-1.035); Squamous Epithelial Cell,Urine <1 /hpf (0-4); Urobilinogen,Urine <2.0 mg/dL (<2.0); WBC,Urine 5 /hpf (0-5)
[2024-03-05 20:09] VITALS: BP 130/93; PULSE 97; RESP 18
[2024-03-05] MEDS ORDERED: QUEtiapine 200 MG TAB PO SCH (21:00)
[2024-03-05] MEDS ORDERED: DULoxetine HCL 20 MG CAPSULE.DR PO SCH (21:00)
[2024-03-06] MEDS ORDERED: LORazepam 1 MG/0.5 ML VIAL IV PRN ×3 (00:34→00:35)
[2024-03-06] MEDS ORDERED: LEVOTHYROXINE 25 MCG TAB PO SCH (06:30)
[2024-03-06] MEDS ORDERED: MULTIVITAMINS, THERA 1 EACH TAB PO SCH (09:00)
[2024-03-06] MEDS ORDERED: cloNIDine HCL 0.1 MG TAB PO SCH (09:00)
[2024-03-06] MEDS ORDERED: THIAMINE 100 MG TAB PO SCH (09:00)
--- NOTE | 2024-03-07 22:20 | HP ---
HISTORY AND PHYSICAL Combined history and physical and discharge summary. CHIEF COMPLAINT: Alcohol withdrawal. HISTORY OF PRESENT ILLNESS: This 38-year-old woman was admitted with alcoholic withdrawal from [place]; however, the patient left the hospital against medical advice before being seen. Please refer to the ER notes as well as staff notes for further information. The prognosis is extremely guarded. MMODL / IJN: [id number] /
== END 2024-03-05 21:37 | disposition left against medical advice (07) | DRG 770 ==
LOC: EC 17:41 → UNDOADMIN 18:43 → 4SSUR 18:43 → UNDODISIN 21:37 → 4SSUR 21:37
DX: F10.231 Alcohol dependence with withdrawal delirium (principal); E07.9 Disorder of thyroid, unspecified; Y90.8 Blood alcohol level of 240 mg/100 ml or more; F31.9 Bipolar disorder, unspecified; Z53.29 Procedure and treatment not carried out because of patient's decision for other reasons; Z85.41 Personal history of malignant neoplasm of cervix uteri; Z85.828 Personal history of other malignant neoplasm of skin; Z79.890 Hormone replacement therapy; Z79.899 Other long term (current) drug therapy
CPT/HCPCS: 36415; 80053; 80306; 80320; 81001; 81025; 82140; 82150; 83690; 83735; 84100; 85025; 96372; 96374; 99285

== ENCOUNTER 2024-03-07 14:29 | Emergency (ER) | payer OTHER ==
--- NOTE | 2024-03-07 15:15 | ED ---
General Adult HPI - General Chief complaint: Psychiatric Symptoms Stated complaint: Behavioral Time Seen by Provider: 03/07/24 14:32 Source: EMS Mode of arrival: EMS - History of Present Illness Initial comments: Dictation was produced using [employer] dictation software. please excuse any grammatical, word or spelling errors. Chief Complaint: 38-year-old female presents to the emergency department for karly and alcohol intoxication History of Present Illness: Patient is 38-year-old female she is here in the emergency department today for manic behavior along with alcohol intoxication. Some history obtained from father. States that she has been drinking. She also has not been sleeping. Patient also has some suicidal thoughts. She does not have a plan or wished she was . Apparently she has bipolar disorder. The ROS documented in this emergency department record has been reviewed and confirmed by me. Those systems with pertinent positive or negative responses have been documented in the HPI. All other systems are other negative and/or noncontributory. - Related Data Home Medications Medication Instructions Recorded Confirmed QUEtiapine FUMARATE [SEROquel] 200 mg PO HS 05/04/20 03/07/24 Levothyroxine Sodium [Synthroid] 25 mcg PO DAILY 11/04/21 03/07/24 DULoxetine HCL [Cymbalta] 20 mg PO BID 03/05/24 03/07/24 LORazepam [Ativan] 0.5 mg PO BID 03/05/24 03/07/24 Tab-A-Mohamud (Multivitamin With 1 tab PO DAILY 03/05/24 03/07/24 Folic Acid 400 Mcg) cloNIDine HCL [Catapres] 0.1 mg PO DAILY 03/05/24 03/07/24 Allergies Allergy/AdvReac Type Severity Reaction Status Date / Time No Known Allergies Allergy Verified 03/07/24 15:31 Review of Systems ROS Statement: Those systems with pertinent positive or pertinent negative responses have been documented in the HPI. ROS Other: All systems not noted in ROS Statement are negative. Past Medical History Past Medical History: Cancer, Thyroid Disorder Additional Past Medical History / Comment(s): alcoholism, past cervical cancer History of Any Multi-Drug Resistant Organisms: None Reported Past Surgical History: Orthopedic Surgery, Uterine Ablation Additional Past Surgical History / Comment(s): rhinoplasty, cervical cancer currently and skin cancer lymph node removed in the 6th grade, left wrist Past Anesthesia/Blood Transfusion Reactions: No Reported Reaction Past Psychological History: Anxiety, Bipolar, Depression Smoking Status: Never smoker Past Alcohol Use History: Daily Past Drug Use History: None Reported - Past Family History Father Additional Family Medical History / Comment(s): Father is age 57. Alcoholism, diverticulosis Mother Additional Family Medical History / Comment(s): Mother is alive at age 65 with no major medical problems. Brother(s) Additional Family Medical History / Comment(s): Patient has 2 brothers with no major medical problems. She does not have any sisters. She does not have any children. General Exam - General Exam Comments Initial Comments: General: Well-appearing, nontoxic, no acute distress. Head: Normocephalic, atraumatic Eyes: PERRLA, EOMI ENT: Airway patent Chest: Nonlabored breathing Skin: No visual rash, normal skin tone Neuro: Alert and oriented 3 Musculoskeletal: No gross abnormalities Course Vital Signs 03/07/24 03/07/24 14:45 17:20 Temperature 99 F Pulse Rate 100 81 Respiratory 18 18 Rate Blood Pressure 130/120 127/100 O2 Sat by Pulse 93 L 98 Oximetry Medical Decision Making - Medical Decision Making Was pt. sent in by a medical professional or institution (, PA, NURSING SERVICE ADMINISTRATOR, urgent care, hospital, or prison...) When possible be specific @ -No Did you speak to anyone other than the patient for history (EMS, parent, family, police, friend...)? What history was obtained from this source @ -No Did you review nursing and triage notes (agree or disagree)? Why? @ -I reviewed and agree with nursing and triage notes Were old charts reviewed (outside hosp., previous admission, EMS record, old EKG, old radiological studies, urgent care reports/EKG's, prison records)? Report findings @ -No old charts were reviewed Differential Diagnosis (chest pain, altered mental status, abdominal pain women, abdominal pain men, vaginal bleeding, musculoskeletal, weakness, fever, dyspnea, syncope, headache, dizziness, GI bleed, back pain, seizure, CVA, palpatations, mental health)? @ -Differential Mental Health: Depression, anxiety, bipolar, psychosis, schizophrenia, borderline personality, situational depression, adjustment disorder, behavioral disorder, brain tumor, malingering, substance abuse, encephalopathy, medication reaction, dementia, hypothyroidism, degenerative neurologic disorder, lupus.... This is not meant to be all-inclusive list EKG interpreted by me (3pts min.). @ -None done X-rays interpreted by me (1pt min.). @ -None done CT interpreted by me (1pt min.). @ -None done U/S interpreted by me (1pt. min.). @ -None done What testing was considered but not performed or refused? (CT, X-rays, U/S, labs)? Why? @ -None What meds were considered but not given or refused? Why? @ -None Did you discuss the management of the patient with other professionals (agustin jones i.e. , PA, NURSING SERVICE ADMINISTRATOR, lab, RT, psych nurse, social studies department chair, records management analyst, teacher, driver's license reviewing officer, case investigator)? Give summary @ -No Was smoking cessation discussed for >3mins.? @ -No Was critical care preformed (if so, how long)? @ -No Were there social determinants of health that impacted care today? How? (Homelessness, low income, unemployed, alcoholism, drug addiction, transportation, low edu. Level, literacy, decrease access to med. care, detention, rehab)? @ -No Was there de-escalation of care discussed even if they declined (Discuss DNR or withdrawal of care, Hospice)? DNR status @ -No What co-morbidities impacted this encounter? (DM, HTN, Smoking, COPD, CAD, Cancer, CVA, ARF, Chemo, Hep., AIDS, mental health diagnosis, sleep apnea, morbid obesity)? @ -None Was patient admitted / discharged? Hospital course, mention meds given and route, prescriptions, significant lab abnormalities, going to OR and other pertinent info. @ -30-year-old female presents to the emergency department for upper intoxication and mental health evaluation. Vital signs stable. Patient pending sobriety for medical clearance for EPS evaluation. Patient eval by EPS after sober and will be discharged. Undiagnosed new problem with uncertain prognosis? @ -No Drug Therapy requiring intensive monitoring for toxicity (Heparin, Nitro, Insulin, Cardizem)? @ -No Were any procedures done? @ -No Diagnosis/symptom? Acute, or Chronic, or Acute on Chronic? Uncomplicated (without systemic symptoms) or Complicated (systemic symptoms)? @ -Psychiatric evaluation Side effects of treatment? @ -No Exacerbation, Progression, or Severe Exacerbation? @ -No Poses a threat to life or bodily function? How? (Chest pain, USA, [place], pneumonia, PE, COPD, DKA, ARF, appy, cholecystitis, CVA, Diverticulitis, Homicidal, Suicidal, threat to staff... and all critical care pts) @ -yes - Lab Data Result diagrams: 03/07/24 17:27 Lab Results 03/07/24 Range/Units 17:27 WBC 6.7 (3.8-10.6) k/uL RBC 4.94 (3.80-5.40) m/uL Hgb 14.5 (11.4-16.0) gm/dL Hct 45.0 (34.0-46.0) % MCV 91.0 (80.0-100.0) fL MCH 29.3 (25.0-35.0) pg MCHC 32.2 (31.0-37.0) g/dL RDW 14.4 (11.5-15.5) % Plt Count 579 H (150-450) k/uL MPV 7.4 Neutrophils % 37 % Lymphocytes % 56 % Monocytes % 3 % Eosinophils % 1 % Basophils % 1 % Neutrophils # 2.5 (1.3-7.7) k/uL Lymphocytes # 3.7 (1.0-4.8) k/uL Monocytes # 0.2 (0-1.0) k/uL Eosinophils # 0.1 (0-0.7) k/uL Basophils # 0.1 (0-0.2) k/uL Disposition Clinical Impression: Karly Disposition: HOME SELF-CARE Condition: Good Instructions (If sedation given, give patient instructions): Help Prevent Suicide (ED) Is patient prescribed a controlled substance at d/c from ED?: No Referrals: Rahat Fletcher DO [Primary Care Provider] - 1-2 days Time of Disposition: 21:02
[2024-03-07 15:56] VITALS: RESP 18
[2024-03-07 17:38] LABS: Basophils # (A) 0.1 k/uL (0-0.2); Basophils % (A) 1 %; Eosinophils # (A) 0.1 k/uL (0-0.7); Eosinophils % (A) 1 %; HGB 14.5 gm/dL (11.4-16.0); Lymphocytes # (A) 3.7 k/uL (1.0-4.8); Lymphocytes % (A) 56 %; MCH 29.3 pg (25.0-35.0); MCHC 32.2 g/dL (31.0-37.0); Mean Platelet Volume 7.4; Monocytes # (A) 0.2 k/uL (0-1.0); Monocytes % (A) 3 %; Neutrophils # (A) 2.5 k/uL (1.3-7.7); Neutrophils % (A) 37 %; Platelet Count 579 k/uL (150-450); RBC 4.94 m/uL (3.80-5.40); RDW 14.4 % (11.5-15.5); WBC 6.7 k/uL (3.8-10.6)
[2024-03-07 21:56] VITALS: BP 135/109; PULSE 98; TEMP 98.2
== END 2024-03-07 21:13 | disposition home or self-care (01) ==
LOC: EC 14:29
DX: F30.9 Manic episode, unspecified (principal)
CPT/HCPCS: 36415; 82075; 85025; 99285

== ENCOUNTER 2024-04-19 16:45 | Observation (INO) | payer OTHER ==
[2024-04-19] MEDS ORDERED: LORazepam 2 MG/ML INJ IV PRN ×3 (17:19)
[2024-04-19] MEDS ORDERED: LORazepam 0.5 MG TAB PO PRN (17:19)
[2024-04-19] MEDS ORDERED: LORazepam 1 MG TAB PO PRN ×3 (17:19)
--- NOTE | 2024-04-19 17:21 | ED ---
General Adult HPI - General Chief complaint: Alcohol Stated complaint: withdrawl Time Seen by Provider: 04/19/24 17:01 Source: patient, RN notes reviewed Mode of arrival: ambulatory Limitations: no limitations - History of Present Illness Initial comments: 38-year-old female presents to the emergency department for alcohol intoxication/withdrawal. Patient states that she typically consumes 4 beers and a pint of whiskey daily. She states that she has had some alcohol today. Her last drink was about 4 hours ago. She does have a history of withdrawal seizures and would like to get sober but is concerned that she may have a seizure. Denies any physical symptoms at this time. - Related Data Home Medications Medication Instructions Recorded Confirmed QUEtiapine FUMARATE [SEROquel] 200 mg PO HS 05/04/20 04/19/24 Levothyroxine Sodium [Synthroid] 25 mcg PO DAILY 11/04/21 04/19/24 LORazepam [Ativan] 0.5 mg PO BID 03/05/24 04/19/24 Tab-A-Mohamud (Multivitamin With 1 tab PO DAILY 03/05/24 04/19/24 Folic Acid 400 Mcg) cloNIDine HCL [Catapres] 0.1 mg PO DAILY 03/05/24 04/19/24 Previous Rx's Medication Instructions Recorded chlordiazePOXIDE HCl [Librium] 25 mg PO DIRECTED 6 Days #18 04/20/24 capsule Allergies Allergy/AdvReac Type Severity Reaction Status Date / Time No Known Allergies Allergy Verified 04/19/24 19:34 Review of Systems ROS Statement: Those systems with pertinent positive or pertinent negative responses have been documented in the HPI. ROS Other: All systems not noted in ROS Statement are negative. Past Medical History Past Medical History: Cancer, Thyroid Disorder Additional Past Medical History / Comment(s): alcoholism, past cervical cancer History of Any Multi-Drug Resistant Organisms: None Reported Past Surgical History: Orthopedic Surgery, Uterine Ablation Additional Past Surgical History / Comment(s): rhinoplasty, cervical cancer currently and skin cancer lymph node removed in the 6th grade, left wrist Past Anesthesia/Blood Transfusion Reactions: No Reported Reaction Past Psychological History: Anxiety, Bipolar, Depression Smoking Status: Never smoker Past Alcohol Use History: Daily, Heavy Past Drug Use History: None Reported - Past Family History Father Additional Family Medical History / Comment(s): Father is age 57. Alcoholism, diverticulosis Mother Additional Family Medical History / Comment(s): Mother is alive at age 65 with no major medical problems. Brother(s) Additional Family Medical History / Comment(s): Patient has 2 brothers with no major medical problems. She does not have any sisters. She does not have any children. General Exam Limitations: no limitations General appearance: alert, in no apparent distress Head exam: Present: atraumatic, normocephalic, normal inspection Eye exam: Present: normal appearance, PERRL, EOMI. Absent: scleral icterus, conjunctival injection, periorbital swelling ENT exam: Present: normal exam, mucous membranes moist Respiratory exam: Present: normal lung sounds bilaterally. Absent: respiratory distress, wheezes, rales, rhonchi, stridor Cardiovascular Exam: Present: normal rhythm, tachycardia, normal heart sounds. Absent: systolic murmur, diastolic murmur, rubs, gallop, clicks GI/Abdominal exam: Present: soft. Absent: distended, tenderness, guarding, rebound, rigid Extremities exam: Present: normal inspection, full ROM, normal capillary refill. Absent: tenderness, pedal edema, joint swelling, calf tenderness Neurological exam: Present: alert, oriented X3 Psychiatric exam: Present: normal affect, normal mood Skin exam: Present: warm, dry, intact, normal color. Absent: rash Course Vital Signs 04/19/24 04/19/24 04/19/24 16:57 19:05 20:01 Temperature 98.3 F Pulse Rate 126 H 107 H 105 H Respiratory 16 18 Rate Blood Pressure 102/72 118/87 O2 Sat by Pulse 96 96 Oximetry 04/19/24 20:45 Temperature 97.8 F Pulse Rate 108 H Respiratory 18 Rate Blood Pressure 102/80 O2 Sat by Pulse 97 Oximetry Medical Decision Making - Medical Decision Making Was pt. sent in by a medical professional or institution (, PA, SEAM RUBBER, urgent care, hospital, or custodial...) When possible be specific @ -No Did you speak to anyone other than the patient for history (EMS, parent, family, police, friend...)? What history was obtained from this source @ -No Did you review nursing and triage notes (agree or disagree)? Why? @ -I reviewed and agree with nursing and triage notes Were old charts reviewed (outside hosp., previous admission, EMS record, old EKG, old radiological studies, urgent care reports/EKG's, custodial records)? Report findings @ -No old charts were reviewed Differential Diagnosis (chest pain, altered mental status, abdominal pain women, abdominal pain men, vaginal bleeding, weakness, fever, dyspnea, syncope, headache, dizziness, GI bleed, back pain, seizure, CVA, palpatations, mental health, musculoskeletal)? @ -Differential Seizure: Recurrent seizure disorder, febrile seizure, alcohol withdrawal, stimulants, meningitis, encephalitis, intercranial hemorrhage, intracranial tumor, stroke, eclampsia, thyrotoxicosis, hypocalcemia, hyponatremia, hypernatremia, hypomagnes emia, psychogenic, this is not meant to be an all-inclusive list. EKG interpreted by me (3pts min.). @ -None X-rays interpreted by me (1pt min.). @ -None done CT interpreted by me (1pt min.). @ -None done U/S interpreted by me (1pt. min.). @ -None done What testing was considered but not performed or refused? (CT, X-rays, U/S, labs)? Why? @ -None What meds were considered but not given or refused? Why? @ -None Did you discuss the management of the patient with other professionals (carol pena i.eIvette Kim, PA, SEAM RUBBER, lab, RT, psych nurse, licensed master social worker, metal roofer, teacher, investigation officer, spring encaser)? Give summary @ -Case discussed with [facility] who is accepting of the admission Was smoking cessation discussed for >3mins.? @ -No Was critical care preformed (if so, how long)? @ -No Were there social determinants of health that impacted care today? How? (Homelessness, low income, unemployed, alcoholism, drug addiction, transportation, low edu. Level, literacy, decrease access to med. care, longterm, rehab)? @ -No Was there de-escalation of care discussed even if they declined (Discuss DNR or withdrawal of care, Hospice)? DNR status @ -No What co-morbidities impacted this encounter? (DM, HTN, Smoking, COPD, CAD, Cancer, CVA, ARF, Chemo, Hep., AIDS, mental health diagnosis, sleep apnea, morbid obesity)? @ -None Was patient admitted / discharged? Hospital course, mention meds given and route, prescriptions, significant lab abnormalities, going to OR and other pertinent info. @ -Admitted for observation. Patient presented to the emergency department for alcohol intoxication/withdrawal. History of withdrawal seizures. Laboratory studies obtained revealing transaminitis. UA shows no evidence of infectious process. Alcohol 324. Patient will be admitted for observation, placed on CIWA protocol. This was discussed with [facility] who is accepting of the admission. Case discussed with Dr. Gibson Undiagnosed new problem with uncertain prognosis? @ -No Drug Therapy requiring intensive monitoring for toxicity (Heparin, Nitro, Insulin, Cardizem)? @ -No Were any procedures done? @ -No Diagnosis/symptom? @ -Alcohol Acute, or Chronic, or Acute on Chronic? @ -Acute Uncomplicated (without systemic symptoms) or Complicated (systemic symptoms)? @ -Uncomplicated Side effects of treatment? @ -No Exacerbation, Progression, or Severe Exacerbation? @ -No Poses a threat to life or bodily function? How? (Chest pain, [place], [place], pneumonia, PE, COPD, DKA, ARF, appy, cholecystitis, CVA, Diverticulitis, Homicidal, Suicidal, threat to staff... and all critical care pts) @ -No - Lab Data Result diagrams: 04/19/24 17:22 04/19/24 17:22 Lab Results 04/19/24 04/19/24 04/19/24 Range/Units 17:22 17:22 17:22 WBC 5.8 (3.8-10.6) k/uL RBC 3.84 (3.80-5.40) m/uL Hgb 11.2 L D (11.4-16.0) gm/dL Hct 34.6 (34.0-46.0) % MCV 90.1 (80.0-100.0) fL MCH 29.0 (25.0-35.0) pg MCHC 32.2 (31.0-37.0) g/dL RDW 16.8 H (11.5-15.5) % Plt Count 375 (150-450) k/uL MPV 7.3 Neutrophils % (Manual) 31 % Band Neuts % (Manual) 1 % Lymphocytes % (Manual) 57 % Monocytes % (Manual) 9 % Eosinophils % (Manual) 1 % Basophils % (Manual) 2 % Neutrophils # (Manual) 1.80 (1.3-7.7) k/uL Lymphocytes # (Manual) 3.31 (1.0-4.8) k/uL Monocytes # (Manual) 0.52 (0-1.0) k/uL Eosinophils # (Manual) 0.06 (0-0.7) k/uL Basophils # (Manual) 0.12 (0-0.2) k/uL Nucleated RBCs 0 (0-0) /100 WBC Manual Slide Review Performed Anisocytosis Slight Sodium (137-145) mmol/L Potassium (3.5-5.1) mmol/L Chloride (98-107) mmol/L Carbon Dioxide (22-30) mmol/L Anion Gap mmol/L BUN (7-17) mg/dL Creatinine (0.52-1.04) mg/dL Est GFR (CKD-EPI)AfAm (>60 ml/min/1.73 sqM) Est GFR (CKD-EPI)NonAf (>60 ml/min/1.73 sqM) Glucose (74-99) mg/dL Calcium (8.4-10.2) mg/dL Phosphorus (2.5-4.5) mg/dL Magnesium (1.6-2.3) mg/dL Total Bilirubin (0.2-1.3) mg/dL AST (14-36) U/L ALT (4-34) U/L Alkaline Phosphatase (38-126) U/L Total Protein (6.3-8.2) g/dL Albumin (3.5-5.0) g/dL Urine Color Colorless Urine Appearance Clear (Clear) Urine pH 5.5 (5.0-8.0) Ur Specific [place] 1.014 (1.001-1.035) Urine Protein Negative (Negative) Urine Glucose (UA) Negative (Negative) Urine Ketones Trace H (Negative) Urine Blood Negative (Negative) Urine Nitrite Negative (Negative) Urine Bilirubin Negative (Negative) Urine Urobilinogen <2.0 (<2.0) mg/dL Ur Leukocyte Esterase Negative (Negative) Urine HCG, Qual Not Detected (Not Detectd) Urine Opiates Screen Not Detected (NotDetected) Ur Oxycodone Screen Not Detected (NotDetected) Urine Methadone Screen Not Detected (NotDetected) Ur Barbiturates Screen Not Detected (NotDetected) U Tricyclic Antidepress Detected H (NotDetected) Ur Phencyclidine Scrn Not Detected (NotDetected) Ur Amphetamines Screen Not Detected (NotDetected) U Methamphetamines Scrn Not Detected (NotDetected) U Benzodiazepines Scrn Detected H (NotDetected) Urine Cocaine Screen Not Detected (NotDetected) U Marijuana (THC) Screen Not Detected (NotDetected) Serum Alcohol mg/dL 04/19/24 Range/Units 17:22 WBC (3.8-10.6) k/uL RBC (3.80-5.40) m/uL Hgb (11.4-16.0) gm/dL Hct (34.0-46.0) % MCV (80.0-100.0) fL MCH (25.0-35.0) pg MCHC (31.0-37.0) g/dL RDW (11.5-15.5) % Plt Count (150-450) k/uL MPV Neutrophils % (Manual) % Band Neuts % (Manual) % Lymphocytes % (Manual) % Monocytes % (Manual) % Eosinophils % (Manual) % Basophils % (Manual) % Neutrophils # (Manual) (1.3-7.7) k/uL Lymphocytes # (Manual) (1.0-4.8) k/uL Monocytes # (Manual) (0-1.0) k/uL Eosinophils # (Manual) (0-0.7) k/uL Basophils # (Manual) (0-0.2) k/uL Nucleated RBCs (0-0) /100 WBC Manual Slide Review Anisocytosis Sodium 142 (137-145) mmol/L Potassium 5.0 (3.5-5.1) mmol/L Chloride 110 H (98-107) mmol/L Carbon Dioxide 19 L (22-30) mmol/L Anion Gap 13 mmol/L BUN 7 (7-17) mg/dL Creatinine 0.55 (0.52-1.04) mg/dL Est GFR (CKD-EPI)AfAm >90 (>60 ml/min/1.73 sqM) Est GFR (CKD-EPI)NonAf >90 (>60 ml/min/1.73 sqM) Glucose 92 (74-99) mg/dL Calcium 9.0 (8.4-10.2) mg/dL Phosphorus 3.7 (2.5-4.5) mg/dL Magnesium 1.6 (1.6-2.3) mg/dL Total Bilirubin 0.6 (0.2-1.3) mg/dL AST 128 H (14-36) U/L ALT 75 H (4-34) U/L Alkaline Phosphatase 55 (38-126) U/L Total Protein 8.2 (6.3-8.2) g/dL Albumin 4.4 (3.5-5.0) g/dL Urine Color Urine Appearance (Clear) Urine pH (5.0-8.0) Ur Specific [place] (1.001-1.035) Urine Protein (Negative) Urine Glucose (UA) (Negative) Urine Ketones (Negative) Urine Blood (Negative) Urine Nitrite (Negative) Urine Bilirubin (Negative) Urine Urobilinogen (<2.0) mg/dL Ur Leukocyte Esterase (Negative) Urine HCG, Qual (Not Detectd) Urine Opiates Screen (NotDetected) Ur Oxycodone Screen (NotDetected) Urine Methadone Screen (NotDetected) Ur Barbiturates Screen (NotDetected) U Tricyclic Antidepress (NotDetected) Ur Phencyclidine Scrn (NotDetected) Ur Amphetamines Screen (NotDetected) U Methamphetamines Scrn (NotDetected) U Benzodiazepines Scrn (NotDetected) Urine Cocaine Screen (NotDetected) U Marijuana (THC) Screen (NotDetected) Serum Alcohol 324 H* mg/dL Disposition Clinical Impression: Alcohol withdrawal, History of seizure due to alcohol withdrawal Disposition: ADMITTED IP TO THIS [facility] Condition: Stable Is patient prescribed a controlled substance at d/c from ED?: No
[2024-04-19 17:48] LABS: Anisocytosis Slight; HCT 34.6 % (34.0-46.0); MCHC 32.2 g/dL (31.0-37.0); MCV 90.1 fL (80.0-100.0); Mean Platelet Volume 7.3; Platelet Count 375 k/uL (150-450); RBC 3.84 m/uL (3.80-5.40); RDW 16.8 % (11.5-15.5); WBC 5.8 k/uL (3.8-10.6)
[2024-04-19 17:49] LABS: HGB 11.2 gm/dL (11.4-16.0)
[2024-04-19 17:54] LABS: ALT 75 U/L (4-34); AST 128 U/L (14-36); African American GFR (CKD) >90 (>60 ml/min/1.73 sqM); Albumin 4.4 g/dL (3.5-5.0); Alkaline Phosphatase 55 U/L (38-126); Anion Gap 13 mmol/L; Blood Urea Nitrogen 7 mg/dL (7-17); Carbon Dioxide 19 mmol/L (22-30); Chloride 110 mmol/L (98-107); Glucose 92 mg/dL (74-99); Magnesium 1.6 mg/dL (1.6-2.3); Non-African American GFR(CKD) >90 (>60 ml/min/1.73 sqM); Phosphorus 3.7 mg/dL (2.5-4.5); Sodium 142 mmol/L (137-145); Total Bilirubin 0.6 mg/dL (0.2-1.3); Total Protein 8.2 g/dL (6.3-8.2)
[2024-04-19 18:18] LABS: Alcohol 324 mg/dL
[2024-04-19 18:23] LABS: Band Neutrophils % 1 %; Basophils # (M) 0.12 k/uL (0-0.2); Eosinophils # (M) 0.06 k/uL (0-0.7); Lymphocytes # (M) 3.31 k/uL (1.0-4.8); Monocytes # (M) 0.52 k/uL (0-1.0); Neutrophils % (M) 31 %; Nucleated Red Blood Cells 0 /100 WBC (0-0); Total Cells Counted 200
[2024-04-19 18:56] LABS: Appearance,Urine Clear (Clear); Bilirubin,Urine Negative (Negative); Blood,Urine Negative (Negative); Color,Urine Colorless; Glucose,Urine (UA) Negative (Negative); Ketones,Urine Trace (Negative); Leukocyte Esterase,Urine Negative (Negative); Nitrite,Urine Negative (Negative); PH, Urine 5.5 (5.0-8.0); Protein,Urine Negative (Negative); Specific Gravity,Urine 1.014 (1.001-1.035); Urobilinogen,Urine <2.0 mg/dL (<2.0)
[2024-04-19 19:34] LABS: Amphetamine Screen,Urine Not Detected (NotDetected); Barbiturate Screen,Urine Not Detected (NotDetected); Benzodiazepines Screen,Urine Detected (NotDetected); Cocaine Screen,Urine Not Detected (NotDetected); Methadone Screen, Urine Not Detected (NotDetected); Opiate Screen,Urine Not Detected (NotDetected); Oxycodone Screen, Urine Not Detected (NotDetected); Phencyclidine Screen,Urine Not Detected (NotDetected); Tricyclic Antidepressant,Urine Detected (NotDetected); Urn Cannabinoid Scrn Not Detected (NotDetected)
[2024-04-19] MEDS ORDERED: IBUPROFEN 400 MG TAB PO PRN (20:12)
[2024-04-19] MEDS ORDERED: NALOXONE 0.4 MG/ML 1 ML VIAL IV PRN (20:12)
[2024-04-19] MEDS ORDERED: ONDANSETRON 4 MG/2 ML VIAL IVP PRN (20:12)
[2024-04-19] MEDS: SODIUM CHLORIDE 0.9% 1,000 ML IV SCH (20:30)
[2024-04-19] MEDS: QUEtiapine 200 MG TAB PO SCH (22:06)
[2024-04-20] MEDS: LORazepam 1 MG TAB PO PRN (03:47)
[2024-04-20] MEDS: LEVOTHYROXINE 25 MCG TAB PO SCH (06:02)
[2024-04-20 07:49] VITALS: BP 127/80; PULSE 109; RESP 15; TEMP 98.6
[2024-04-20] MEDS: cloNIDine HCL 0.1 MG TAB PO SCH (08:02)
--- NOTE | 2024-04-21 16:01 | P.HPIM ---
History of Present Illness H&P Date: 04/20/24 This is a 38-year-old female with medical history of alcoholism hypothyroidism. Patient was in the hospital intoxicated and concern for acute alcohol withdrawal and seizure-like activity. Patient does have a history of alcohol withdrawal seizure in the past. Patient comes in with an alcohol level of 324 states that she drinks 4 beers and a pint of whiskey daily. Patient was admitted to the hospital with a Ativan CIWA protocol and will be monitored for acute alcohol withdrawal. His LFTs are elevated consistent with alcoholic hepatitis and expected to improve with hydration and cessation of alcohol. REVIEW OF SYSTEMS: CONSTITUTIONAL: No fever, no malaise, no fatigue. HEENT: No recent visual problems or hearing problems. Denied any sore throat. CARDIOVASCULAR: No chest pain, orthopnea, PND, no palpitations, no syncope. PULMONARY: No shortness of breath, no cough, no hemoptysis. GASTROINTESTINAL: No diarrhea, no nausea, no vomiting, no abdominal pain. NEUROLOGICAL: No headaches, no weakness, no numbness. HEMATOLOGICAL: Denies any bleeding or petechiae. GENITOURINARY: Denies any burning micturition, frequency, or urgency. MUSCULOSKELETAL/RHEUMATOLOGICAL: Denies any joint pain, swelling, or any muscle pain. ENDOCRINE: Denies any polyuria or polydipsia. The rest of the 14-point review of systems is negative. PHYSICAL EXAMINATION: GENERAL: The patient is alert and oriented x3, not in any acute distress. Well developed, well nourished. HEENT: Pupils are round and equally reacting to light. EOMI. No scleral icterus. No conjunctival pallor. Normocephalic, atraumatic. No pharyngeal erythema. No thyromegaly. CARDIOVASCULAR: S1 and S2 present. No murmurs, rubs, or gallops. PULMONARY: Chest is clear to auscultation, no wheezing or crackles. ABDOMEN: Soft, nontender, nondistended, normoactive bowel sounds. No palpable organomegaly. MUSCULOSKELETAL: No joint swelling or deformity. EXTREMITIES: No cyanosis, clubbing, or pedal edema. NEUROLOGICAL: Gross neurological examination did not reveal any focal deficits. SKIN: No rashes. Assessment and plan Acute alcohol intoxication History of alcohol withdrawal seizure patient will be treated with IV Ativan C IWA protocol monitor closely for any seizure-like or withdrawal symptoms History of hypothyroidism maintained on home dose of levothyroxine which has been resumed Alcoholic hepatitis expected to improve with hydration GI prophylaxis DVT prophylaxis Full code The impression and plan of care has been dictated by Heather Storm, Nurse Practitioner as directed. Dr. Obed MD I have performed a history and physical examination and medical decision making of this patient, discussed the same with the dictator, and agree with the dictators assessment and plan as written, documented as a scribe. Based on total visit time, I have performed more than 50% of this visit. Past Medical History Past Medical History: Cancer, Thyroid Disorder Additional Past Medical History / Comment(s): alcoholism, past cervical cancer History of Any Multi-Drug Resistant Organisms: None Reported Past Surgical History: Orthopedic Surgery, Uterine Ablation Additional Past Surgical History / Comment(s): rhinoplasty, cervical cancer currently and skin cancer lymph node removed in the 6th grade, left wrist Past Anesthesia/Blood Transfusion Reactions: No Reported Reaction Past Psychological History: Anxiety, Bipolar, Depression Additional Psychological History / Comment(s): PT STATED CURRENTLY HAS NO THOUGHTS OF HARMING SELF BUT IN PAST 2 WEEKS HAD SOME THOUGHTS. DENIES FEELING HOPELESS. Smoking Status: Never smoker Past Alcohol Use History: Daily, Heavy Additional Past Alcohol Use History / Comment(s): went to [place] for alcohol had been sober for 50 days. sober 100 days until 3 weeks ago Past Drug Use History: None Reported Additional Drug Use History / Comment(s): Patient states that she tried herion for the first time on 01/08/16, unsure of amount and went unresponsive where she required CPR to bring her back to life per Patient. - Past Family History Father Additional Family Medical History / Comment(s): Father is age 57. Alcoholism, diverticulosis Mother Additional Family Medical History / Comment(s): Mother is alive at age 65 with no major medical problems. Brother(s) Additional Family Medical History / Comment(s): Patient has 2 brothers with no major medical problems. She does not have any sisters. She does not have any children. Medications and Allergies Home Medications Medication Instructions Recorded Confirmed Type QUEtiapine FUMARATE [SEROquel] 200 mg PO HS 05/04/20 04/19/24 History Levothyroxine Sodium [Synthroid] 25 mcg PO DAILY 11/04/21 04/19/24 History LORazepam [Ativan] 0.5 mg PO BID 03/05/24 04/19/24 History Tab-A-Mohamud (Multivitamin With 1 tab PO DAILY 03/05/24 04/19/24 History Folic Acid 400 Mcg) cloNIDine HCL [Catapres] 0.1 mg PO DAILY 03/05/24 04/19/24 History chlordiazePOXIDE HCl [Librium] 25 mg PO DIRECTED 6 Days #18 04/20/24 Rx capsule Allergies Allergy/AdvReac Type Severity Reaction Status Date / Time No Known Allergies Allergy Verified 04/19/24 19:34 Physical Exam Vitals: Vital Signs Temp Pulse Pulse Resp BP BP BP 04/20/24 07:27 98.6 F 109 H 15 127/80 04/20/24 01:00 98.2 F 111 H 14 96/63 04/19/24 20:57 97.9 F 103 H 16 126/85 04/19/24 20:45 97.8 F 108 H 18 102/80 04/19/24 20:01 105 H 04/19/24 19:05 107 H 18 118/87 04/19/24 16:57 98.3 F 126 H 16 102/72 Pulse Ox 04/20/24 07:27 97 04/20/24 01:00 94 L 04/19/24 20:57 95 04/19/24 20:45 97 04/19/24 20:01 04/19/24 19:05 96 04/19/24 16:57 96 Intake and Output 04/19/24 04/20/24 04/20/24 22:59 06:59 14:59 Other: # Voids 2 Weight 56.699 kg Results CBC & Chem 7: 04/19/24 17:22 04/19/24 17:22 Labs: Abnormal Lab Results - Last 24 Hours (Table) 04/19/24 04/19/24 04/19/24 Range/Units 17:22 17:22 17:22 Hgb 11.2 L D (11.4-16.0) gm/dL RDW 16.8 H (11.5-15.5) % Chloride 110 H (98-107) mmol/L Carbon Dioxide 19 L (22-30) mmol/L AST 128 H (14-36) U/L ALT 75 H (4-34) U/L Urine Ketones Trace H (Negative) U Tricyclic Antidepress Detected H (NotDetected) U Benzodiazepines Scrn Detected H (NotDetected) Serum Alcohol 324 H* mg/dL Thrombosis Risk Factor Assmnt - Choose All That Apply Any of the Below Risk Factors Present?: No Assessment and Plan Time with Patient: Less than 30
--- NOTE | 2024-04-21 16:04 | P.DS ---
Providers Date of admission: 04/19/24 20:12 Attending physician: Clive Grimaldo Primary care physician: [facility] Course: Final Diagnosis Acute alcohol withdrawal History of alcohol withdrawal seizure History of hypothyroidism maintained on home dose of levothyroxine which has been resumed Alcoholic hepatitis expected to improve with hydration Alcoholism History of cervical cancer in the past History of anxiety depression/bipolar Discharge Disposition Stable for discharge home she will continue on oral Librium taper for the next 6 days. Patient is recommended to avoid alcohol while she is taking this medication. Patient verbalizes understanding. Patient will continue all the same home medications. Hospital Course This is a 38-year-old female with medical history of alcoholism hypothyroidism. Patient was in the hospital intoxicated and concern for acute alcohol withdrawal and seizure-like activity. Patient does have a history of alcohol withdrawal seizure in the past. Patient comes in with an alcohol level of 324 states that she drinks 4 beers and a pint of whiskey daily. Patient was admitted to the hospital with a Ativan CIWA protocol and will be monitored for acute alcohol withdrawal. His LFTs are elevated consistent with alcoholic hepatitis and expected to improve with hydration and cessation of alcohol. Patient was monitored overnight and is not currently having any episodes of seizure-like activity and is not acutely withdrawing from alcohol this time. She is not reporting any chest pain or shortness of breath no nausea vomiting or diarrhea. Patient is alert x 3 and she would like to be discharged home. Please see medication reconciliation for a list of current medications. Thank you for allowing us to participate in the care of this patient. The impression and plan of care has been dictated by Heather Storm, Nurse Practitioner as directed. Dr. Obed MD I have performed a history and physical examination and medical decision making of this patient, discussed the same with the dictator, and agree with the dictators assessment and plan as written, documented as a scribe. Based on total visit time, I have performed more than 50% of this visit. Patient Condition at Discharge: Stable Plan - Discharge Summary New Discharge Prescriptions: New chlordiazePOXIDE HCl [Librium] 25 mg PO DIRECTED 6 Days #18 capsule Continue QUEtiapine FUMARATE [SEROquel] 200 mg PO HS Levothyroxine Sodium [Synthroid] 25 mcg PO DAILY Tab-A-Mohamud (Multivitamin With Folic Acid 400 Mcg) 1 tab PO DAILY cloNIDine HCL [Catapres] 0.1 mg PO DAILY LORazepam [Ativan] 0.5 mg PO BID Discharge Medication List QUEtiapine FUMARATE [SEROquel] 200 mg PO HS 05/04/20 [History] Levothyroxine Sodium [Synthroid] 25 mcg PO DAILY 11/04/21 [History] LORazepam [Ativan] 0.5 mg PO BID 03/05/24 [History] Tab-A-Mohamud (Multivitamin With Folic Acid 400 Mcg) 1 tab PO DAILY 03/05/24 [History] cloNIDine HCL [Catapres] 0.1 mg PO DAILY 03/05/24 [History] chlordiazePOXIDE HCl [Librium] 25 mg PO DIRECTED 6 Days #18 capsule 04/20/24 [Rx] Follow up Appointment(s)/Referral(s): Rahat Fletcher DO [Primary Care Provider] - 1-2 days (Office is closed at time of discharge. Please call for follow-up appointment.) Patient Instructions/Handouts: Alcohol Intoxication (DC) Activity/Diet/Wound Care/Special Instructions: Finish librium taper before resuming ativan Discharge Disposition: HOME SELF-CARE
== END 2024-04-20 13:03 | disposition home or self-care (01) ==
LOC: EC 16:45 → 4SSUR 20:12
PROVIDERS: ADMIT Hospitalist; ATTEND Hospitalist
DX: F10.229 Alcohol dependence with intoxication, unspecified (principal); E03.9 Hypothyroidism, unspecified; K70.10 Alcoholic hepatitis without ascites; F41.9 Anxiety disorder, unspecified; Y90.8 Blood alcohol level of 240 mg/100 ml or more; F31.9 Bipolar disorder, unspecified; Z85.828 Personal history of other malignant neoplasm of skin; Z85.41 Personal history of malignant neoplasm of cervix uteri
CPT/HCPCS: 96360; 96361 ×2; 99284; 36415; 80053; 83735; 84100; 85025; 81003; 81025; 80306; G0378 ×2; G0480; 80320